=== PATIENT | female | born 2000 | race Caucasian/White ===

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

== ENCOUNTER 2022-01-08 20:31 | Emergency (ER) | payer BC, MEDICAID, SELFPAY ==
[2022-01-08 20:49] VITALS: BP 126/96; PULSE 119; RESP 16; TEMP 37.1; O2SAT 93; BMI 28.9
--- NOTE | 2022-01-08 20:54 | ED_ITS ---
HPI - Asthma General: Chief Complaint: Asthma Stated Complaint: Asthma Attack Time Seen by Provider: 01/08/22 20:49 History of Present Illness: 21-year-old female comes in today with complaints of increased shortness of breath and asthma exacerbation. Patient reports worsening symptoms over the last 2 hours. Patient has used her albuterol inhaler and then has done 1 nebulizer treatment about 30 minutes ago without any relief. Patient has a history of asthma, migraine headaches, anxiety disorder, and seizure disorder. 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 Managed by her neurologist in [place] at [facility], sees q 6 months. On Keppra, Topamax, prn valium. History of anaphylaxis Multiple foods and other exposures. Vp Analytics at [facility] in [place] - Dr Morrison. On Fasenra in addition to other medications. Migraine with vision changes, on rizatriptan and fioricet as needed Moderate persistent asthma Diagnosed at the age of 4. Denies any intubations for asthma. 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 Tourette's on guanfacine Surgical History H/O shoulder surgery (~2017) right torn rotator cuff History of esophagogastroduodenoscopy (EGD) (~04/2020) eosinophilic microabscesses Family History Grandmother Heart disease Maternal great grandmother Diabetes Maternal great grandmother Hyperlipidemia maternal great grandmother Hypertension maternal great grandmother Thyroid condition maternal Endometriosis maternal Family/Other Ovarian cancer great aunt Hypertension maternal great aunt, maternal great uncle Multiple myeloma maternal uncle Mother Thyroid condition Denies family history of Colon cancer DVT (deep venous thrombosis) Breast cancer Pulmonary embolism Uterine cancer Stroke Social History (Reviewed 12/27/21 @ 15:29 by ARNOLD Crawford-BCRobson Smoking and tobacco status: never smoked Education level details: currently in college Female Reproductive History: Spontaneous abortions: No Physical Exam Const: COMMON NORMALS: alert HENMT: COMMON NORMALS: normocephalic HEAD & SCALP: normocephalic Eye: COMMON NORMALS: Equal, round and reactive pupils present and EOMs intact bilaterally PUPIL: Yes Equal, round and reactive pupils present Neck/C-Spine: COMMON NORMALS: full ROM Resp: EFFORT & INSPECTION: Yes symmetric chest movement, Yes pursed lip b reathing and Yes uses accessory muscles AUSCULTATION: wheezes Cardio: COMMON NORMALS: regular rate and regular rhythm RATE: regular rate RHYTHM: regular rhythm GI: COMMON NORMALS: Soft to palpation and non-tender PALPATION: Yes Soft to palpation Extremity: COMMON NORMALS: no pedal edema Neuro: SENSORIUM/ORIENTATION: Yes alert Psych: COMMON NORMALS: cooperative Skin: COMMON NORMALS: no rashes or lesions noted GENERAL SKIN EXAM: no rashes or lesions noted Course ED course: 2129, patient has increased air movement throughout lung franklin. Continues to have wheezing. Patient reports improvement in overall symptoms. Vital Signs: Vital signs: Vital Signs Temperature 98.7 F 01/08/22 20:49 Pulse Rate 95 01/08/22 21:54 Respiratory Rate 16 01/08/22 21:54 Blood Pressure 137/95 01/08/22 21:54 Pulse Oximetry 97 01/08/22 21:54 MDM - Asthma Medical Decision Making 21-year-old female comes in today with exacerbation of asthma. Patient reported about 2 hours prior to coming to the ER she had increased difficulty breathing had used her inhaler and then used a albuterol nebulizer treatment about an hour after that without much relief. On exam patient had wheezing throughout lung franklin with decreased air movement. Skin was warm and dry. Vital signs were no rmal. Differential diagnosis includes exacerbation of asthma. Pneumonia. Pneumothorax. Chest x-ray indicated no pneumonia or pneumothorax. CBC and CMP were unremarkable. Patient was treated with 125 mg of Solu-Medrol, 500 mL of saline, and albuterol with ipratropium. Patient had improvement of symptoms. Patient be continued on a burst of steroid prednisone 60 mg a day for 5 days. Patient was also written for some albuterol with ipratropium to use per nebulizer 4 times a day for the next 5 days. Patient reported understanding of care plan need for follow-up return to ER as needed. Lab Data : 01/08/22 21:00 01/08/22 21:00 Radiology Impressions Chest X-Ray 01/08/22 20:57 IMPRESSION: No acute findings. Laboratory Results WBC 8.8 10^3/uL (4.5-13.0) 01/08/22 21:00 RBC 5.53 10^6/uL (4.1-5.3) H 01/08/22 21:00 Hgb 15.8 g/dL (11.5-15.3) H 01/08/22 21:00 Hct 47.1 % (37.0-47.0) H 01/08/22 21:00 MCV 85.2 fl (81-99) 01/08/22 21:00 MCH 28.6 pg (28.0-34.0) 01/08/22 21:00 MCHC 33.5 g/dL (30.0-36.0) 01/08/22 21:00 RDW 11.7 % (12.1-15.1) L 01/08/22 21:00 Plt Count 352 10^3/cmm (130-400) 01/08/22 21:00 MPV 9.6 fL (7.4-10.4) 01/08/22 21:00 Neut % (Auto) 47.6 % 01/08/22 21:00 Lymph % (Auto) 44.5 % 01/08/22 21:00 Florence % (Auto) 7.4 % 01/08/22 21:00 Eos % (Auto) 0.0 % 01/08/22 21:00 Baso % (Auto) 0.3 % 01/08/22 21:00 Neut # (Auto) 4.21 10^3/uL (1.8-8.0) 01/08/22 21:00 Lymph # (Auto) 3.9 10^3/uL (1.5-6.5) 01/08/22 21:00 Florence # (Auto) 0.7 10^3/uL (0.2-0.9) 01/08/22 21:00 Eos # (Auto) 0.0 10^3/uL (0.0-0.8) 03/01/22 21:00 Baso # (Auto) 0.0 10^3/uL (0.0-0.1) 01/08/22 21:00 Nucleated RBC % (auto) 0 % 01/08/22 21:00 Nucleated RBCs # 0.0 /100WBC 01/08/22 21:00 Sodium 138 mmol/L (136-145) 01/08/22 21:00 Potassium 3.8 mmol/L (3.5-5.1) 01/08/22 21:00 Chloride 103 mmol/L (98-107) 01/08/22 21:00 Carbon Dioxide 23 mmol/L (22-29) 01/08/22 21:00 Anion Gap 15.8 (5-19) 01/08/22 21:00 BUN 13 mg/dL (6-20) 01/08/22 21:00 Creatinine 0.9 mg/dL (0.5-0.9) 01/08/22 21:00 GFR Calculation 80.7 mL/min (90-130) L 01/08/22 21:00 Glucose 98 mg/dL (65-115) 01/08/22 21:00 Calculated Osmolality 286 mOsm/kg (285-295) 01/08/22 21:00 Calcium 9.0 mg/dL (8.5-10.5) 01/08/22 21:00 Total Bilirubin 0.2 mg/dL (0.15-1.2) 01/08/22 21:00 AST 15 U/L (0-32) 01/08/22 21:00 ALT 13 U/L (0-33) 01/08/22 21:00 Alkaline Phosphatase 94 IU/L (35-105) 01/08/22 21:00 Total Protein 7.2 g/dL (6.6-8.7) 01/08/22 21:00 Albumin 4.7 g/dL (3.5-5.2) 01/08/22 21:00 Globulin 2.5 g/dL (1.3-4.6) 01/08/22 21:00 HCG, Qual Negative (Negative) 01/08/22 21:22 Discharge Plan Discharge Patient Disposition: Home Clinical Impression: Asthma with acute exacerbation Condition: Stable Prescriptions: New ipratropium-albuterol 0.5 mg-3 mg(2.5 mg base)/3 mL solution for nebulization 3 ml inhalation Q6H PRN (Reason: shortness of breath or wheezing) Qty: 90 0RF prednisone 20 mg tablet 60 mg PO DAILY 5 Days Qty: 30 0RF No Action rizatriptan 10 mg tablet,disintegrating 10 mg PO Q2H PRN (Reason: Migraine Headache) 0RF Rx Instructions: do not exceed 3 doses per 24 hrs medroxyprogesterone [Depo-Provera] 150 mg/mL suspension 150 mg IM .EVERY 90 DAYS Qty: 1 3RF pantoprazole [Protonix] 40 mg tablet,delayed release (DR/EC) 40 mg PO DAILY 0RF azelastine 137 mcg (0.1 %) aerosol,spray 2 spray intranasal DAILY 0RF Rx Instructions: administer into each nostril can use twice daily prn trazodone 50 mg tablet 50 mg PO BEDTIME PRN (Reason: Sleep) 0RF Rx Instructions: may take 2 tabs prn metoclopramide HCl 10 mg tablet,disintegrating 10 mg PO Q6H Qty: 20 0RF dexamethasone sodium phosphate 4 mg/mL solution 8 mg IM ONCE Qty: 2 0RF methylprednisolone [Medrol (Norbert)] 4 mg tablets,dose pack See Rx Instructions PO PER PKG DIR Qty: 21 0RF Rx Instructions: PO PER PKG DIR amoxicillin-pot clavulanate 875-125 mg tablet 1 tab PO Q12H 10 Days Qty: 20 0RF Trelegy Ellipta 100-62.5-25 mcg blister with device 1 inh inhalation DAILY 0RF ondansetron HCl [Zofran] 4 mg tablet 4 mg PO Q8H PRN (Reason: Nausea) Qty: 20 0RF epinephrine 0.3 mg/0.3 mL auto-injector 0.3 mg IM Q10M PRN (Reason: allergic reaction) Qty: 1 1RF Rx Instructions: Administer into thigh at first sign of anaphylaxis. ibuprofen 600 mg tablet 600 mg PO Q8H PRN (Reason: pain) Qty: 60 0RF Hold Instructions: Doctor's Order albuterol sulfate 90 mcg/actuation HFA aerosol inhaler 2 inh INHALATION Q4H PRN (Reason: shortness of breath or wheezing) Qty: 8.5 3RF Fioricet 50-300-40 mg capsule 1 cap PO Q4H PRN (Reason: headache) Qty: 30 0RF montelukast 10 mg tablet 10 mg PO BEDTIME Qty: 30 2RF Diastat AcuDial 5-7.5-10 mg Kit 10 mg MN .ONE TIME PRN 0RF dihydroxyaluminum sodium carb 334 mg Tablet,Chewable 334 - 668 mg PO PRN 0RF Tylenol Extra Strength 500 mg Tablet 500 - 1,000 mg PO PRN 0RF topiramate 50 mg Tablet 100 mg PO BID 0RF Flonase Allergy Relief 50 mcg/actuation spray,suspension 1 spray INTRANASAL DAILY 0RF Rx Instructions: administer into each nostril multivitamin Tablet 1 tab PO DAILY 0RF cetirizine 10 mg Tablet 20 mg PO QAM 0RF guanfacine 1 mg Tablet 1 mg PO BEDTIME 0RF hydroxyzine HCl 25 mg Tablet 25 mg PO Q6H PRN (Reason: Itching) 0RF levetiracetam [Keppra XR] 500 mg Tablet Extended Release 24 Hr 3,000 mg PO BEDTIME 0RF albuterol sulfate 2.5 mg /3 mL (0.083 %) solution for nebulization 2.5 mg inhalation Q4H PRN (Reason: Shortness Of Breath) 0RF Discharge Orders: Discharge ED (Routine); Ordered 01/08/22 Ordered By: Carlyle Kimball Referrals: Samantha Gurrola MD [Primary Care Provider] - Discharge Diet: Usual diet Discharge Activity: Increase activity as tolerated Patient Instructions: Asthma (ED), Opioid Safety Activity Restrictions/Additional Instructions: Use albuterol with ipratropium, DuoNeb's, per nebulizer 4 times a day for the next 5 days. Then use as needed. Continue with routine medications as directed. Take steroid burst of prednisone 60 mg daily for the next 5 days. Drink plenty of water with medication. Follow-up with primary care or asthma resident care aid for further evaluation and treatment. Return to ER for worsening symptoms or new concerns. Coding Level of Care Code ED Photo Finish Photographer for Konstantin Fwdarius Exam Comprehensive
--- NOTE | 2022-01-08 20:57 | XRR_ITS ---
PROCEDURE INFORMATION: Exam: XR Chest Exam date and time: 01/08/2022 8:57 PM Age: 21 years old Clinical indication: Shortness of breath; Additional info: Dyspnea TECHNIQUE: Imaging protocol: XR of the chest. Views: 1 view. COMPARISON: CR XR chest 2V* [id number] 12/27/2021 5:04 PM FINDINGS: Lungs: Lungs are clear. Pleural spaces: There is no pleural effusion or pneumothorax. Heart/Mediastinum: Cardiomediastinal contours are unremarkable. Bones/joints: Bones are unremarkable. XR/XR chest 1V portable [id number] IMPRESSION: No acute findings.
[2022-01-08 21:09] VITALS: PULSE 103; RESP 20; O2SAT 97
[2022-01-08] MEDS: ipratropium-albuterol 3 mL Neb INHALATION (21:09)
[2022-01-08] MEDS: sodium chloride 0.9% 500 ML 999 ML IV (21:14)
[2022-01-08 21:22] LABS: Basophils % 0.3 %; Hematocrit 47.1 % (37.0-47.0); Hemoglobin 15.8 g/dL (11.5-15.3); Lymphocytes # 3.9 10^3/uL (1.5-6.5); Lymphocytes % 44.5 %; Mean Corpuscular HGB Conc 33.5 g/dL (30.0-36.0); Mean Corpuscular Hemoglobin 28.6 pg (28.0-34.0); Mean Corpuscular Volume 85.2 fl (81-99); Mean Platelet Volume 9.6 fL (7.4-10.4); Monocytes # 0.7 10^3/uL (0.2-0.9); Monocytes % 7.4 %; Neutrophils # 4.21 10^3/uL (1.8-8.0); Neutrophils % 47.6 %; Nucleated Red Blood Cells % 0 %; Platelet Count 352 10^3/cmm (130-400); Red Blood Count 5.53 10^6/uL (4.1-5.3); Red Cell Distribution Width 11.7 % (12.1-15.1); White Blood Count 8.8 10^3/uL (4.5-13.0)
[2022-01-08 21:44] LABS: HCG, Serum Qual Negative (Negative)
[2022-01-08 21:54] VITALS: BP 137/95; PULSE 95; RESP 16; O2SAT 97
[2022-01-08 21:57] LABS: Alanine Aminotransferase 13 U/L (0-33); Albumin Level 4.7 g/dL (3.5-5.2); Alkaline Phosphatase 94 IU/L (35-105); Anion Gap 15.8 (5-19); Aspartate Amino Transferase 15 U/L (0-32); Blood Urea Nitrogen 13 mg/dL (6-20); Carbon Dioxide 23 mmol/L (22-29); Chloride 103 mmol/L (98-107); Creatinine Clr Calc Pharmacy 89.5811; Globulin 2.5 g/dL (1.3-4.6); Glomerular Filtration Rate 80.7 mL/min (90-130); Glucose 98 mg/dL (65-115); Osmolality Calculated 286 mOsm/kg (285-295); Potassium 3.8 mmol/L (3.5-5.1); Sodium 138 mmol/L (136-145); Total Bilirubin 0.2 mg/dL (0.15-1.2); Total Protein 7.2 g/dL (6.6-8.7)
[2022-01-08 22:22] VITALS: BP 123/101; PULSE 101; RESP 16; O2SAT 94
== END 2022-01-08 22:23 | disposition home or self-care (01) ==
PROVIDERS: Emergency Provider Nurse Practitioner Family; PCP Pediatrics Adolescent Medicine
DX: J45.901 Unspecified asthma with (acute) exacerbation (principal)
CPT/HCPCS: 71045; 80053; 84703; 85025; 94640; 96374; 99284; J2930; J7040

== ENCOUNTER 2022-01-29 14:38 | Emergency (ER) | payer BC, MEDICAID, SELFPAY ==
[2022-01-29 14:49] VITALS: BP 153/97; PULSE 84; RESP 18; TEMP 36.9; O2SAT 94; BMI 28.3
[2022-01-29 14:51] VITALS: BP 121/86; PULSE 92; RESP 18; TEMP 37.2; O2SAT 97
--- NOTE | 2022-01-29 15:36 | ED_ITS ---
HPI - Headache General: Chief Complaint: Headache Stated Complaint: Migraine, service dog alerted, Numb hands Time Seen by Provider: 01/29/22 14:52 Source: patient Mode of arrival: ambulatory Limitations: no limitations History of Present Illness: 21-year-old female presents emergency room with bilateral frontal headache. She has photophobia and photophobia. She has not had any vomiting but has had significant nausea. She tried several home medications with no relief. She had similar headaches in the past. No recent trauma. MD elicited complaint: migraine Onset (ago): hour(s) Onset description: suddenly Location: frontal and temporal Severity: moderate Quality & Timing: throbbing Exacerbating factors: none Relieving factors: nothing Associated symptoms: Deny chest pain, confusion, cough, diaphoresis, eye pain, eye redness, fever(s), lightheadedness, loss of vision, malaise, nausea, neck stiffness, numbness, paresthesias, photophobia, pre-syncope, rash, seizures, short of breath, sound sensitivity, syncope, vomiting or weakness Treatments prior to arrival: none Review of Systems Const: Denies: fever(s), malaise or diaphoresis Eyes: Reports: photophobia; Denies: change in vision ENMT: Denies: throat pain Card: Denies: chest pain, lightheadedness, syncope or pre-syncope Resp: Denies: dyspnea, productive cough or wheezing GI: Denies: nausea or vomiting : Denies: flank pain, difficulty voiding, dysuria, urinary frequency or urinary urgency Skin/Breast: Denies: rash Neuro: Denies: headache(s) or confusion PFS ED PFSH: Medical History 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 Managed by her neurologist in [place] at [facility], sees q 6 months. On Keppra, Topamax, prn valium. History of anaphylaxis Multiple foods and other exposures. 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 On Fasenra in addition to other medications. Migraine with vision changes, on rizatriptan and fioricet as needed Moderate persistent asthma Diagnosed at the age of 4. Denies any intubations for asthma. 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 Yari's on guanfacine Surgical History H/O shoulder surgery (~2017) right torn rotator cuff History of esophagogastroduodenoscopy (EGD) (~04/2020) eosinophilic microabscesses Family History Grandmother Heart disease Maternal great grandmother Diabetes Maternal great grandmother Hyperlipidemia maternal great grandmother Hypertension maternal great grandmother Thyroid condition maternal Endometriosis maternal Family/Other Ovarian cancer great aunt Hypertension maternal great aunt, maternal great uncle Multiple myeloma maternal uncle Mother Thyroid condition Denies family history of Colon cancer DVT (deep venous thrombosis) Breast cancer Pulmonary embolism Uterine cancer Stroke Social History Smoking and tobacco status: never smoked Education level details: currently in college Female Reproductive History: Spontaneous abortions: No Physical Exam Const: COMMON NORMALS: no acute distress GENERAL APPEARANCE: cooperative and comfortable ORIENTATION/CONSCIOUSNESS: Yes awake, Yes oriented to person, Yes oriented to place and Yes oriented to time HENMT: COMMON NORMALS: normocephalic, atraumatic and hearing grossly normal bilaterally HEAD & SCALP: normocephalic and atraumatic Eye: DIRECT OPHTHALMOSCOPY: No photophobia Neck/C-Spine: COMMON NORMALS: no JVD Resp: COMMON NORMALS: normal respiratory effort, No retractions, No use of accessory muscles and clear to auscultation bilaterally AUSCULTATION: clear to auscultation bilaterally Cardio: COMMON NORMALS: no JVD, regular rate, regular rhythm and No murmurs present (Cardio) RATE: regular rate RHYTHM: regular rhythm GI: COMMON NORMALS: Soft to palpation and No hepatosplenomegaly present AUSCULTATION: Yes normoactive bowel sounds PALPATION: Yes Soft to palpation, No Tenderness to palpation present (GI), No Guarding due to palpation present (GI) and Yes No hepatosplenomegaly present Extremity: COMMON NORMALS: normal to inspection, capillary refill normal, no clubbing, cyanosis or edema, no calf tenderness and no pedal edema Neuro: SENSORIUM/ORIENTATION: Yes oriented to person, Yes oriented to place and Yes oriented to time Skin: COMMON NORMALS: no rashes or lesions noted GENERAL SKIN EXAM: no rashes or lesions noted Course Vital Signs: Vital signs: Vital Signs Temperature 98.9 F 01/29/22 14:51 Pulse Rate 86 01/29/22 17:14 Respiratory Rate 18 01/29/22 17:14 Blood Pressure 123/88 01/29/22 17:14 Pulse Oximetry 99 01/29/22 17:14 MDM - Headache Medical Decision Making Migraines are a chronic recurring issue for this patient. Partially improved after treatment patient wishes to go home we will discharge home. Continue current medications follow-up with neurology or primary care for further headache management. Medical Records I reviewed the patient's medical records. Lab Data I reviewed the patient's lab results. Discharge Plan Discharge Patient Disposition: Home Clinical Impression: Migraine variant Condition: Stable Prescriptions: No Action rizatriptan 10 mg tablet,disintegrating 10 mg PO Q2H PRN (Reason: Migraine Headache) 0RF Rx Instructions: do not exceed 3 doses per 24 hrs medroxyprogesterone [Depo-Provera] 150 mg/mL suspension 150 mg IM .EVERY 90 DAYS Qty: 1 3RF pantoprazole [Protonix] 40 mg tablet,delayed release (DR/EC) 40 mg PO DAILY 0RF azelastine 137 mcg (0.1 %) aerosol,spray 2 spray intranasal DAILY 0RF Rx Instructions: administer into each nostril can use twice daily prn trazodone 50 mg tablet 50 mg PO BEDTIME PRN (Reason: Sleep) 0RF Rx Instructions: may take 2 tabs prn metoclopramide HCl 10 mg tablet,disintegrating 10 mg PO Q6H Qty: 20 0RF dexamethasone sodium phosphate 4 mg/mL solution 8 mg IM ONCE Qty: 2 0RF methylprednisolone [Medrol (Norbert)] 4 mg tablets,dose pack See Rx Instructions PO PER PKG DIR Qty: 21 0RF Rx Instructions: PO PER PKG DIR amoxicillin-pot clavulanate 875-125 mg tablet 1 tab PO Q12H 10 Days Qty: 20 0RF Trelegy Ellipta 100-62.5-25 mcg blister with device 1 inh inhalation DAILY 0RF ondansetron HCl [Zofran] 4 mg tablet 4 mg PO Q8H PRN (Reason: Nausea) Qty: 20 0RF epinephrine 0.3 mg/0.3 mL auto-injector 0.3 mg IM Q10M PRN (Reason: allergic reaction) Qty: 1 1RF Rx Instructions: Administer into thigh at first sign of anaphylaxis. ibuprofen 600 mg tablet 600 mg PO Q8H PRN (Reason: pain) Qty: 60 0RF Hold Instructions: Doctor's Order montelukast 10 mg tablet 10 mg PO BEDTIME Qty: 30 2RF sbamuvaser-ldsqsqhbugeaa-hizi [Fioricet] 50-300-40 mg capsule 1 cap PO Q4H PRN (Reason: headache) Qty: 30 0RF albuterol sulfate [ProAir HFA] 90 mcg/actuation HFA aerosol inhaler See Rx Instructions .ROUTE .COMPLEX Qty: 8.5 1RF Dose Instruction: INHALE 2 PUFFS BY MOUTH EVERY 4 HOURS NEEDED FOR SHORTNESS OF BREATH OR WHEEZING Rx Instructions: INHALE 2 PUFFS BY MOUTH EVERY 4 HOURS NEEDED FOR SHORTNESS OF BREATH OR WHEEZING Diastat AcuDial 5-7.5-10 mg Kit 10 mg MT .ONE TIME PRN 0RF dihydroxyaluminum sodium carb 334 mg Tablet,Chewable 334 - 668 mg PO PRN 0RF Tylenol Extra Strength 500 mg Tablet 500 - 1,000 mg PO PRN 0RF topiramate 50 mg Tablet 100 mg PO BID 0RF Flonase Allergy Relief 50 mcg/actuation spray,suspension 1 spray INTRANASAL DAILY 0RF Rx Instructions: administer into each nostril ipratropium-albuterol 0.5 mg-3 mg(2.5 mg base)/3 mL solution for nebulization 3 ml inhalation Q6H PRN (Reason: shortness of breath or wheezing) Qty: 90 0RF multivitamin Tablet 1 tab PO DAILY 0RF cetirizine 10 mg Tablet 20 mg PO QAM 0RF guanfacine 1 mg Tablet 1 mg PO BEDTIME 0RF hydroxyzine HCl 25 mg Tablet 25 mg PO Q6H PRN (Reason: Itching) 0RF levetiracetam [Keppra XR] 500 mg Tablet Extended Release 24 Hr 3,000 mg PO BEDTIME 0RF albuterol sulfate 2.5 mg /3 mL (0.083 %) solution for nebulization 2.5 mg inhalation Q4H PRN (Reason: Shortness Of Breath) 0RF Reglan 5 mg tablet 5 mg PO DAILY PRN (Reason: nausea and vomiting) 10 Days Qty: 10 0RF magnesium oxide 400 mg magnesium capsule 400 mg PO DAILY PRN (Reason: headache) 10 Days Qty: 10 0RF prednisone 50 mg tablet 50 mg PO DAILY Qty: 5 0RF Discharge Orders: Discharge ED (Routine); Ordered 01/29/22 Ordered By: Henry Ritchie Referrals: Samantha Gurrola MD [Primary Care Provider] - Discharge Diet: Usual diet Discharge Activity: Limit activity as instructed Activity Restrictions/Additional Instructions: Follow-up with neurologist as soon as you are able. Avoid strenuous activity. Avoid bright lights loud sounds. Coding Level of Care Code ED Web Design Specialist for Konstantin Pedersen
[2022-01-29] MEDS: promethazine 25 mg/mL SDV 1 mL IM (15:51)
[2022-01-29] MEDS: sodium chloride 0.9% 1,000 ML 999 ML IV (15:51)
[2022-01-29] MEDS: ketorolac 30 mg/mL INJ IVP (15:52)
[2022-01-29] MEDS: valproic acid inj 500 MG in sodium chloride 0.9% 50 ML 55 MG IV (16:03)
[2022-01-29 16:18] VITALS: BP 113/76; PULSE 92; RESP 18; O2SAT 97
[2022-01-29 16:30] VITALS: BP 105/82; O2SAT 97
[2022-01-29 17:11] VITALS: BP 123/88; PULSE 86; RESP 18; O2SAT 99
[2022-01-29 17:14] VITALS: BP 123/88; PULSE 86; RESP 18; O2SAT 99
== END 2022-01-29 17:15 | disposition home or self-care (01) ==
PROVIDERS: Emergency Provider Family Medicine; PCP Pediatrics Adolescent Medicine
DX: G43.909 Migraine, unspecified, not intractable, without status migrainosus (principal)
CPT/HCPCS: 96365; 96372; 96375; 99284; J1885; J2550; J7030

== ENCOUNTER 2022-02-02 08:49 | Emergency (ER) | payer BC, MEDICAID, SELFPAY ==
[2022-02-02 09:23] VITALS: PULSE 97; RESP 16; TEMP 36.9; O2SAT 94; BMI 29.2
--- NOTE | 2022-02-02 12:06 | W.ED.GENADLT ---
HPI - General Adult General: Chief complaint: Headache Stated complaint: migraine Time Seen by Provider: 02/02/22 09:30 History of Present Illness: Patient is a 21-year-old female with a history of migraines and seizures who was initially evaluated on 01/29/2022 for complaints of migraine headache. Since then, patient tells me that her headache improved after the ED visit but however her symptoms has relapsed in the last day. Patient has had significant nausea without vomiting. Patient denies any focal neurological weakness with a headache today. Patient reports photophobia insomnia, difficulty sleeping, and difficulty concentrating due to the headache. Patient reports a constant throbbing left frontal headache and neck pain. Patient denies that the headache is sudden onset or intense at the beginning. Patient denies any trauma, no family history of aneurysm. Patient has no other focal complaints including focal weakness, slurring of speech, facial droop, chest pain, shortness breath, palpitation, abdominal complaints, nausea/vomiting, or other issues at this time. Onset: 01/29/2022 Duration:ongoing Location:home Severity:moderate Associated symptoms: Reports nausea; Deny chest pain, dyspnea, rash, palpitations or vomiting Review of Systems Const: Denies: fever(s) or chills Eyes: Denies: change in vision ENMT: Denies: mouth pain Card: Denies: chest pain or palpitations Resp: Denies: dyspnea or non-productive cough GI: Reports: nausea; Denies: abdominal pain, vomiting or diarrhea : Denies: dysuria Musc: Denies: extremity pain Skin/Breast: Denies: rash or new lesions Neuro: Reports: other (+headache); Denies: weakness in extremities Psych: Reports: other (Normal mood) Issac/Lymph: Denies: easy bruising PFS ED PFSH: Medical History Allergy to alpha-gal Eosinophilic gastroenteropathy Gastroenterology in [facility] -Dr. 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 Managed by her neurologist in [facility], sees q 6 months. On Keppra, Topamax, prn valium. History of anaphylaxis Multiple foods and other exposures. 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 On Fasenra in addition to other medications. Migraine with vision changes, on rizatriptan and fioricet as needed Moderate persistent asthma Diagnosed at the age of 4. Denies any intubations for asthma. 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 Tourette's on guanfacine Surgical History H/O shoulder surgery (~2017) right torn rotator cuff History of esophagogastroduodenoscopy (EGD) (~04/2020) eosinophilic microabscesses Family History Grandmother Heart disease Maternal great grandmother Diabetes Maternal great grandmother Hyperlipidemia maternal great grandmother Hypertension maternal great grandmother Thyroid condition maternal Endometriosis maternal Family/Other Ovarian cancer great aunt Hypertension maternal great aunt, maternal great uncle Multiple myeloma maternal uncle Mother Thyroid condition Denies family history of Colon cancer DVT (deep venous thrombosis) Breast cancer Pulmonary embolism Uterine cancer Stroke Social History Smoking and tobacco status: never smoked Education level details: currently in college Physical Exam Const: COMMON NORMALS: alert HENMT: COMMON NORMALS: atraumatic HEAD & SCALP: atraumatic MOUTH: moist mucous membranes not abnormal Eye: COMMON NORMALS: EOMs intact bilaterally and conjunctivae normal CONJUNCTIVA: Yes conjunctivae normal Neck/C-Spine: COMMON NORMALS: full ROM and supple Resp: COMMON NORMALS: normal respiratory effort and clear to auscultation bilaterally AUSCULTATION: clear to auscultation bilaterally Cardio: COMMON NORMALS: regular rate RATE: regular rate GI: COMMON NORMALS: Soft to palpation and non-tender PALPATION: Yes Soft to palpation Extremity: COMMON NORMALS: full ROM Neuro: SENSORIUM/ORIENTATION: Yes alert MOTOR EXAM: No Abnormal motor strength present and Other motor observations present (no focal motor deficits) OTHER: Neuro exam grossly intact, cranial nerves II through grossly intact. Patient is able to ambulate without any difficulty., Patient is moving all extremities. Psych: COMMON NORMALS: speech normal SPEECH: Yes normal speech MOOD & AFFECT: Yes euthymic mood Course Vital Signs: Vital signs: Vital Signs Temperature 98.4 F 02/02/22 09:23 Pulse Rate 97 02/02/22 09:23 Respiratory Rate 16 02/02/22 09:23 Pulse Oximetry 94 02/02/22 09:23 MDM - General Adult Medical Decision Making 21-year-old female with history of migraine seizure presenting to the emergency room with breakthrough migraine despite treatment in the emergency room on 01/29/2022. At the present time, given gradual onset, similar headache to prior, no fever, I do not suspect that this is subarachnoid hemorrhage, meningitis, or other acute intracranial processes. Patient received Reglan, IVF, Benadryl, Toradol, and magnesium with significant improvement in headache. Rx: Magnesium oxide, Tylenol, Reglan as needed for headache Disposition: Discharge. Patient counseled regarding diagnostic impression, treatment plan. Patient given ED strict return precautions to return for continuation, worsening, or development of new symptoms. Instructed to f/u w/ PCP regarding symptoms today. Patient verbalized understanding. Discharge Plan Discharge Patient Disposition: Home Clinical Impression: Migraine Condition: Stable Prescriptions: New acetaminophen 500 mg tablet 500 mg PO Q6H PRN (Reason: pain) 5 Days Qty: 20 0RF Reglan 5 mg tablet 5 mg PO DAILY PRN (Reason: nausea and vomiting) 10 Days Qty: 10 0RF magnesium oxide 400 mg magnesium capsule 400 mg PO DAILY PRN (Reason: headache) 10 Days Qty: 10 0RF No Action rizatriptan 10 mg tablet,disintegrating 10 mg PO Q2H PRN (Reason: Migraine Headache) 0RF Rx Instructions: do not exceed 3 doses per 24 hrs medroxyprogesterone [Depo-Provera] 150 mg/mL suspension 150 mg IM .EVERY 90 DAYS Qty: 1 3RF pantoprazole [Protonix] 40 mg tablet,delayed release (DR/EC) 40 mg PO DAILY 0RF azelastine 137 mcg (0.1 %) aerosol,spray 2 spray intranasal DAILY 0RF Rx Instructions: administer into each nostril can use twice daily prn trazodone 50 mg tablet 50 mg PO BEDTIME PRN (Reason: Sleep) 0RF Rx Instructions: may take 2 tabs prn metoclopramide HCl 10 mg tablet,disintegrating 10 mg PO Q6H Qty: 20 0RF dexamethasone sodium phosphate 4 mg/mL solution 8 mg IM ONCE Qty: 2 0RF methylprednisolone [Medrol (Norbert)] 4 mg tablets,dose pack See Rx Instructions PO PER PKG DIR Qty: 21 0RF Rx Instructions: PO PER PKG DIR amoxicillin-pot clavulanate 875-125 mg tablet 1 tab PO Q12H 10 Days Qty: 20 0RF Trelegy Ellipta 100-62.5-25 mcg blister with device 1 inh inhalation DAILY 0RF ondansetron HCl [Zofran] 4 mg tablet 4 mg PO Q8H PRN (Reason: Nausea) Qty: 20 0RF epinephrine 0.3 mg/0.3 mL auto-injector 0.3 mg IM Q10M PRN (Reason: allergic reaction) Qty: 1 1RF Rx Instructions: Administer into thigh at first sign of anaphylaxis. ibuprofen 600 mg tablet 600 mg PO Q8H PRN (Reason: pain) Qty: 60 0RF Hold Instructions: Doctor's Order Fioricet 50-300-40 mg capsule 1 cap PO Q4H PRN (Reason: headache) Qty: 30 0RF montelukast 10 mg tablet 10 mg PO BEDTIME Qty: 30 2RF albuterol sulfate [ProAir HFA] 90 mcg/actuation HFA aerosol inhaler See Rx Instructions .ROUTE .COMPLEX Qty: 8.5 0RF Dose Instruction: INHALE 2 PUFFS BY MOUTH EVERY 4 HOURS NEEDED FOR SHORTNESS OF BREATH OR WHEEZING Rx Instructions: INHALE 2 PUFFS BY MOUTH EVERY 4 HOURS NEEDED FOR SHORTNESS OF BREATH OR WHEEZING Diastat AcuDial 5-7.5-10 mg Kit 10 mg DE .ONE TIME PRN 0RF dihydroxyaluminum sodium carb 334 mg Tablet,Chewable 334 - 668 mg PO PRN 0RF Tylenol Extra Strength 500 mg Tablet 500 - 1,000 mg PO PRN 0RF topiramate 50 mg Tablet 100 mg PO BID 0RF Flonase Allergy Relief 50 mcg/actuation spray,suspension 1 spray INTRANASAL DAILY 0RF Rx Instructions: administer into each nostril ipratropium-albuterol 0.5 mg-3 mg(2.5 mg base)/3 mL solution for nebulization 3 ml inhalation Q6H PRN (Reason: shortness of breath or wheezing) Qty: 90 0RF multivitamin Tablet 1 tab PO DAILY 0RF cetirizine 10 mg Tablet 20 mg PO QAM 0RF guanfacine 1 mg Tablet 1 mg PO BEDTIME 0RF hydroxyzine HCl 25 mg Tablet 25 mg PO Q6H PRN (Reason: Itching) 0RF levetiracetam [Keppra XR] 500 mg Tablet Extended Release 24 Hr 3,000 mg PO BEDTIME 0RF albuterol sulfate 2.5 mg /3 mL (0.083 %) solution for nebulization 2.5 mg inhalation Q4H PRN (Reason: Shortness Of Breath) 0RF Discharge Orders: Discharge ED (Routine); Ordered 02/02/22 Ordered By: Vasyl Onofre Referrals: Samantha Gurrola MD [Primary Care Provider] - Discharge Diet: Advance as tolerated Discharge Activity: Increase activity as tolerated Patient Instructions: Acute Headache (ED) Activity Restrictions/Additional Instructions: Please come back to the emergency room you have any fever chills, worsening headache, focal weakness, nausea/vomiting, inability to perform daily activity, or any new concerning complaints. Coding Level of Care Code ED Auto Radio Mechanic for Konstantin Fwd Exam Comprehensive
[2022-02-02] MEDS: sodium chloride 0.9% 1,000 ML 999 ML IV (13:11)
[2022-02-02] MEDS: acetaminophen 500 mg Tablet 1000 MG PO (13:13)
[2022-02-02] MEDS: ketorolac 30 mg/mL INJ IVP (13:14)
[2022-02-02] MEDS: diphenhydrAMINE 50 mg/mL SDV 1mL IVP (13:16)
[2022-02-02] MEDS: metoclopramide 5 mg/mL SDV 2 mL IVP (13:18)
[2022-02-02] MEDS: magnesium sulfate premix 2 GM/50 ML PIGGYBACK IV (13:22)
== END 2022-02-02 14:08 | disposition home or self-care (01) ==
PROVIDERS: Emergency Provider Emergency Medicine; PCP Pediatrics Adolescent Medicine
DX: G43.909 Migraine, unspecified, not intractable, without status migrainosus (principal)
CPT/HCPCS: 96365; 96375; 99283; J1200; J1885; J2765; J3475; J7030

== ENCOUNTER 2022-02-05 01:27 | Emergency (ER) | payer BC, MEDICAID, SELFPAY ==
[2022-02-05 01:31] VITALS: BP 134/98; PULSE 139; RESP 24; TEMP 36.8; O2SAT 95; BMI 29.2
--- NOTE | 2022-02-05 01:39 | XRR_ITS ---
PROCEDURE INFORMATION: Exam: XR Chest Exam date and time: 02/05/2022 2:01 AM Age: 21 years old Clinical indication: Dyspnea; Additional info: Asthma TECHNIQUE: Imaging protocol: XR of the chest. Views: 1 view. COMPARISON: CR (CHEST, ) 01/08/2022 9:13 PM FINDINGS: Lungs: Stable hyperaerated lungs consistent with deep inspiratory effort vs reactive airway disease. Pleural spaces: Unremarkable. No pleural effusion. No pneumothorax. Heart/Mediastinum: Unremarkable. No cardiomegaly. Bones/joints: Unremarkable. XR/XR chest 1V portable [id number] IMPRESSION: Stable hyperaerated lungs consistent with deep inspiratory effort vs reactive airway disease.
--- NOTE | 2022-02-05 01:41 | W.ED.ASTHMA ---
HPI - Asthma General: Chief Complaint: Asthma Stated Complaint: Asthma Attack Time Seen by Provider: 02/05/22 01:36 Source: patient Mode of arrival: ambulatory Limitations: no limitations History of Present Illness: 21-year-old female who has a long history of asthma states she has been having shortness of breath along with wheezing and cough throughout the day. States is like her previous asthma attacks. She denies any fever she does have some improvement with albuterol. Denies any vomiting. Denies any chest pain. Associated symptoms: Reports non-productive cough; Deny chest pain or fever(s) Review of Systems Const: Denies: fever(s), chills, body aches or change in appetite Eyes: Denies: blurry vision or eye discomfort ENMT: Denies: throat pain or dental pain Card: Denies: chest pain Resp: Reports: non-productive cough and wheezing GI: Denies: abdominal pain, nausea, vomiting or diarrhea : Denies: dysuria Musc: Denies: neck pain or back pain Skin/Breast: Denies: rash Neuro: Denies: headache(s) Psych: Denies: depression Issac/Lymph: Denies: easy bruising All/Imm: Denies: urticaria PFSH ED PFSH: Medical History 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 Managed by her neurologist in [facility], sees q 6 months. On Keppra, Topamax, prn valium. History of anaphylaxis Multiple foods and other exposures. 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 On Fasenra in addition to other medications. Migraine with vision changes, on rizatriptan and fioricet as needed Moderate persistent asthma Diagnosed at the age of 4. Denies any intubations for asthma. 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 Yari's on guanfacine Surgical History H/O shoulder surgery (~2017) right torn rotator cuff History of esophagogastroduodenoscopy (EGD) (~04/2020) eosinophilic microabscesses Family History Grandmother Heart disease Maternal great grandmother Diabetes Maternal great grandmother Hyperlipidemia maternal great grandmother Hypertension maternal great grandmother Thyroid condition maternal Endometriosis maternal Family/Other Ovarian cancer great aunt Hypertension maternal great aunt, maternal great uncle Multiple myeloma maternal uncle Mother Thyroid condition Denies family history of Colon cancer DVT (deep venous thrombosis) Breast cancer Pulmonary embolism Uterine cancer Stroke Social History Smoking and tobacco status: never smoked Education level details: currently in college Physical Exam Const: COMMON NORMALS: no acute distress, patient oriented x3 and healthy appearing HENMT: COMMON NORMALS: normocephalic and atraumatic HEAD & SCALP: normocephalic and atraumatic Eye: COMMON NORMALS: Equal, round and reactive pupils present and EOMs intact bilaterally PUPIL: Yes Equal, round and reactive pupils present Neck/C-Spine: COMMON NORMALS: full ROM and supple Chest: COMMONS NORMALS: normal inspection of the chest and normal palpation of entire chest wall Resp: COMMON NORMALS: normal respiratory effort, No retractions, No use of accessory muscles and clear to auscultation bilaterally EFFORT & INSPECTION: Yes tachypneic AUSCULTATION: clear to auscultation bilaterally and wheezes Cardio: COMMON NORMALS: regular rate, regular rhythm and No murmurs present (Cardio) RATE: regular rate and tachycardic RHYTHM: regular rhythm GI: COMMON NORMALS: Normal to inspection, nondistended, normoactive bowel sounds present, Soft to palpation, non-tender and no masses PALPATION: Yes Soft to palpation Extremity: COMMON NORMALS: normal to inspection and full ROM Neuro: COMMON NORMALS: patient oriented x3, moves all extremities and no focal motor deficits Psych: COMMON NORMALS: mental status grossly normal, Normal thought process present and cooperative THOUGHT PROCESS: Normal thought process present Skin: COMMON NORMALS: no rashes or lesions noted and no wounds GENERAL SKIN EXAM: no rashes or lesions noted Course Vital Signs: Vital signs: Vital Signs Temperature 98.2 F 02/05/22 01:31 Pulse Rate 122 H 02/05/22 01:58 Respiratory Rate 16 02/05/22 01:58 Blood Pressure 135/81 02/05/22 01:58 Pulse Oximetry 93 02/05/22 01:58 MDM - Asthma Medical Decision Making Patient presents here with an asthma exacerbation she feels much improved here after IV steroids and breathing treatments her heart rates improved to and is currently 105. She has no signs of pneumonia or pulmonary embolism we will place her on prednisone 5 days she is to follow-up with PCP and return if worsening. EKG Data EKG 1: I personally reviewed and interpreted this EKG as follows: EKG interpretation date: 02/05/22 EKG interpretation time: 02:20 Interpretation: sinus tach hr [address] or t wave abnormalities qrs 85 qtc 391 Discharge Plan Discharge Patient Disposition: Home Clinical Impression: Asthma with acute exacerbation Condition: Stable Prescriptions: New prednisone 50 mg tablet 50 mg PO DAILY Qty: 5 0RF No Action rizatriptan 10 mg tablet,disintegrating 10 mg PO Q2H PRN (Reason: Migraine Headache) 0RF Rx Instructions: do not exceed 3 doses per 24 hrs medroxyprogesterone [Depo-Provera] 150 mg/mL suspension 150 mg IM .EVERY 90 DAYS Qty: 1 3RF pantoprazole [Protonix] 40 mg tablet,delayed release (DR/EC) 40 mg PO DAILY 0RF azelastine 137 mcg (0.1 %) aerosol,spray 2 spray intranasal DAILY 0RF Rx Instructions: administer into each nostril can use twice daily prn trazodone 50 mg tablet 50 mg PO BEDTIME PRN (Reason: Sleep) 0RF Rx Instructions: may take 2 tabs prn metoclopramide HCl 10 mg tablet,disintegrating 10 mg PO Q6H Qty: 20 0RF dexamethasone sodium phosphate 4 mg/mL solution 8 mg IM ONCE Qty: 2 0RF methylprednisolone [Medrol (Norbert)] 4 mg tablets,dose pack See Rx Instructions PO PER PKG DIR Qty: 21 0RF Rx Instructions: PO PER PKG DIR amoxicillin-pot clavulanate 875-125 mg tablet 1 tab PO Q12H 10 Days Qty: 20 0RF Trelegy Ellipta 100-62.5-25 mcg blister with device 1 inh inhalation DAILY 0RF ondansetron HCl [Zofran] 4 mg tablet 4 mg PO Q8H PRN (Reason: Nausea) Qty: 20 0RF epinephrine 0.3 mg/0.3 mL auto-injector 0.3 mg IM Q10M PRN (Reason: allergic reaction) Qty: 1 1RF Rx Instructions: Administer into thigh at first sign of anaphylaxis. ibuprofen 600 mg tablet 600 mg PO Q8H PRN (Reason: pain) Qty: 60 0RF Hold Instructions: Doctor's Order montelukast 10 mg tablet 10 mg PO BEDTIME Qty: 30 2RF [id number] [Fioricet] 50-300-40 mg capsule 1 cap PO Q4H PRN (Reason: headache) Qty: 30 0RF albuterol sulfate [ProAir HFA] 90 mcg/actuation HFA aerosol inhaler See Rx Instructions .ROUTE .COMPLEX Qty: 8.5 1RF Dose Instruction: INHALE 2 PUFFS BY MOUTH EVERY 4 HOURS NEEDED FOR SHORTNESS OF BREATH OR WHEEZING Rx Instructions: INHALE 2 PUFFS BY MOUTH EVERY 4 HOURS NEEDED FOR SHORTNESS OF BREATH OR WHEEZING Diastat AcuDial 5-7.5-10 mg Kit 10 mg NE .ONE TIME PRN 0RF dihydroxyaluminum sodium carb 334 mg Tablet,Chewable 334 - 668 mg PO PRN 0RF Tylenol Extra Strength 500 mg Tablet 500 - 1,000 mg PO PRN 0RF topiramate 50 mg Tablet 100 mg PO BID 0RF Flonase Allergy Relief 50 mcg/actuation spray,suspension 1 spray INTRANASAL DAILY 0RF Rx Instructions: administer into each nostril ipratropium-albuterol 0.5 mg-3 mg(2.5 mg base)/3 mL solution for nebulization 3 ml inhalation Q6H PRN (Reason: shortness of breath or wheezing) Qty: 90 0RF multivitamin Tablet 1 tab PO DAILY 0RF cetirizine 10 mg Tablet 20 mg PO QAM 0RF guanfacine 1 mg Tablet 1 mg PO BEDTIME 0RF hydroxyzine HCl 25 mg Tablet 25 mg PO Q6H PRN (Reason: Itching) 0RF levetiracetam [Keppra XR] 500 mg Tablet Extended Release 24 Hr 3,000 mg PO BEDTIME 0RF albuterol sulfate 2.5 mg /3 mL (0.083 %) solution for nebulization 2.5 mg inhalation Q4H PRN (Reason: Shortness Of Breath) 0RF acetaminophen 500 mg tablet 500 mg PO Q6H PRN (Reason: pain) 5 Days Qty: 20 0RF Reglan 5 mg tablet 5 mg PO DAILY PRN (Reason: nausea and vomiting) 10 Days Qty: 10 0RF magnesium oxide 400 mg magnesium capsule 400 mg PO DAILY PRN (Reason: headache) 10 Days Qty: 10 0RF Discharge Orders: Discharge ED (Routine); Ordered 02/05/22 Ordered By: Efraín Horner Referrals: Samantha Gurrola MD [Primary Care Provider] - 1-3 days Discharge Diet: Advance as tolerated Discharge Activity: Resume usual activity Patient Instructions: Asthma (ED) Coding Level of Care Code ED Supervisor Mapping for Chg Fwd Exam Comprehensive
[2022-02-05] MEDS: ipratropium-albuterol 3 mL Neb INHALATION (01:47)
[2022-02-05 01:49] VITALS: PULSE 126; RESP 16; O2SAT 93
[2022-02-05 01:54] VITALS: PULSE 134
[2022-02-05 01:58] VITALS: BP 135/81; PULSE 122; RESP 16; O2SAT 93
--- NOTE | 2022-02-05 01:58 | ECG_ITS ---
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 Measurements Intervals [place] Rate: 117 P: 64 MN: 144 QRS: 92 QRSD: 85 T: 44 QT: 321 QTc: 449 Interpretive Statements SINUS TACHYCARDIA BORDERLINE RIGHT AXIS DEVIATION [QRS AXIS > 90] ABNORMAL RHYTHM ECG Compared to ECG 04/20/2021 09:24:47 No significant changes Electronically Signed On 02-06-2022 16:56:54 CDT by Demetrio Moses M.D. [id number]
[2022-02-05] MEDS: sodium chloride 0.9% 1,000 ML 999 ML IV (02:17)
[2022-02-05 03:31] VITALS: BP 131/78; PULSE 112; RESP 16; O2SAT 96
== END 2022-02-05 03:33 | disposition home or self-care (01) ==
PROVIDERS: Emergency Provider Emergency Medicine; PCP Pediatrics Adolescent Medicine
DX: J45.901 Unspecified asthma with (acute) exacerbation (principal)
CPT/HCPCS: 71045; 93005; 94640; 96361; 96374; 99284; J2930; J7030; J7611

== ENCOUNTER 2022-02-07 03:31 | Emergency (ER) | payer BC, MEDICAID, SELFPAY ==
--- NOTE | 2022-02-07 03:33 | XRR_ITS ---
PROCEDURE INFORMATION: Exam: XR Chest Exam date and time: 02/07/2022 3:39 AM Age: 21 years old Clinical indication: Dyspnea and shortness of breath; Patient HX: C/O SOB with dyspnea. History of asthma. TECHNIQUE: Imaging protocol: XR of the chest. Views: 1 view. COMPARISON: CR (CHEST, ) 02/05/2022 2:01 AM FINDINGS: Lungs: No CHF/pulmonary edema. The lungs appear mildly hyperinflated. Visible lungs appear essentially clear. Pleural spaces: No visible pneumothorax. No definite pleural fluid. Heart/Mediastinum: Heart size is within normal limits. Bones/joints: No significant acute finding. XR/XR chest 1V portable [id number] IMPRESSION: 1. No definite pneumonia or CHF. 2. Suspect mild hyperinflation of the lungs. 3. Other findings discussed above.
[2022-02-07 03:34] VITALS: PULSE 128; RESP 28; TEMP 36.6; O2SAT 92; BMI 29.2
[2022-02-07 03:36] VITALS: BP 150/96; PULSE 117; RESP 20; O2SAT 92
--- NOTE | 2022-02-07 03:40 | W.ED.ASTHMA ---
HPI - Asthma General: Chief Complaint: Asthma Stated Complaint: Asthma Attack Time Seen by Provider: 02/07/22 03:33 Source: patient Mode of arrival: ambulatory Limitations: no limitations History of Present Illness: 21-year-old female who has a history of asthma was seen here 2 days ago for an asthma exacerbation patient was prescribed steroids which she just picked up and started today. States that tonight started having increased breathing wheezing and dyspnea. She is tachypneic here with audible wheezing slight hypoxia she denies any cough denies any fever she has been doing breathing treatments at home with minimal improvement. Denies any recent illness denies any chest pain. Associated symptoms: Deny chest pain or fever(s) Review of Systems Const: Denies: fever(s), chills, body aches or change in appetite Eyes: Denies: blurry vision or eye discomfort ENMT: Denies: throat pain or dental pain Card: Denies: chest pain Resp: Reports: dyspnea and wheezing GI: Denies: abdominal pain, nausea, vomiting or diarrhea : Denies: dysuria Musc: Denies: neck pain or back pain Skin/Breast: Denies: rash Neuro: Denies: headache(s) Psych: Denies: depression Issac/Lymph: Denies: easy bruising All/Imm: Denies: urticaria PFSH ED PFSH: Medical History Allergy to alpha-gal Eosinophilic gastroenteropathy Gastroenterology in [facility] -Dr. 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 Managed by her neurologist in [facility], sees q 6 months. On Keppra, Topamax, prn valium. History of anaphylaxis Multiple foods and other exposures. 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 On Fasenra in addition to other medications. Migraine with vision changes, on rizatriptan and fioricet as needed Moderate persistent asthma Diagnosed at the age of 4. Denies any intubations for asthma. 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 Tourette's on guanfacine Surgical History H/O shoulder surgery (~2018) right torn rotator cuff History of esophagogastroduodenoscopy (EGD) (~04/2020) eosinophilic microabscesses Family History Grandmother Heart disease Maternal great grandmother Diabetes Maternal great grandmother Hyperlipidemia maternal great grandmother Hypertension maternal great grandmother Thyroid condition maternal Endometriosis maternal Family/Other Ovarian cancer great aunt Hypertension maternal great aunt, maternal great uncle Multiple myeloma maternal uncle Mother Thyroid condition Denies family history of Colon cancer DVT (deep venous thrombosis) Breast cancer Pulmonary embolism Uterine cancer Stroke Social History Smoking and tobacco status: never smoked Education level details: currently in college Physical Exam Const: COMMON NORMALS: patient oriented x3 and healthy appearing GENERAL APPEARANCE: in distress HENMT: COMMON NORMALS: normocephalic and atraumatic HEAD & SCALP: normocephalic and atraumatic Eye: COMMON NORMALS: Equal, round and reactive pupils present and EOMs intact bilaterally PUPIL: Yes Equal, round and reactive pupils present Neck/C-Spine: COMMON NORMALS: full ROM and supple Chest: COMMONS NORMALS: normal inspection of the chest and normal palpation of entire chest wall Resp: EFFORT & INSPECTION: Yes tachypneic and Yes respiratory distress AUSCULTATION: wheezes Cardio: COMMON NORMALS: regular rhythm and No murmurs present (Cardio) RATE: tachycardic RHYTHM: regular rhythm GI: COMMON NORMALS: Normal to inspection, nondistended, normoactive bowel sounds present, Soft to palpation, non-tender and no masses PALPATION: Yes Soft to palpation Extremity: COMMON NORMALS: normal to inspection and full ROM Neuro: COMMON NORMALS: patient oriented x3, moves all extremities and no focal motor deficits Psych: COMMON NORMALS: mental status grossly normal, Normal thought process present and cooperative THOUGHT PROCESS: Normal thought process present Skin: COMMON NORMALS: no rashes or lesions noted and no wounds GENERAL SKIN EXAM: no rashes or lesions noted Course Vital Signs: Vital signs: Vital Signs Temperature 97.8 F 02/07/22 03:34 Pulse Rate 109 H 02/07/22 04:33 Respiratory Rate 18 02/07/22 04:33 Blood Pressure 128/94 02/07/22 04:33 Pulse Oximetry 96 02/07/22 04:33 MDM - Asthma Medical Decision Making Patient presents here with an asthma exacerbation she feels much improved here after breathing treatments along magnesium. I did speak to her about possible admission and offered admission but she states she feels better would like to try another day of steroids at home and does see her asthma specialist tomorrow. She has no signs of pneumonia or pulmonary embolism pulse ox here is improved as well. We will discharge her she is to continue her steroids at home follow-up with her doctor tomorrow to schedule and return if worsening she understands agrees to plan. Lab Data : 02/07/22 03:49 02/07/22 03:49 Radiology Impressions Chest X-Ray 02/07/22 03:33 IMPRESSION: 1. No definite pneumonia or CHF. 2. Suspect mild hyperinflation of the lungs. 3. Other findings discussed above. Laboratory Results WBC 9.3 10^3/uL (4.5-13.0) 02/07/22 03:49 RBC 5.72 10^6/uL (4.1-5.3) H 02/07/22 03:49 Hgb 16.4 g/dL (11.5-15.3) H 02/07/22 03:49 Hct 49.2 % (37.0-47.0) H 02/07/22 03:49 MCV 86.0 fl (81-99) 02/07/22 03:49 MCH 28.7 pg (28.0-34.0) 02/07/22 03:49 MCHC 33.3 g/dL (30.0-36.0) 02/07/22 03:49 RDW 11.7 % (12.1-15.1) L 02/07/22 03:49 Plt Count 352 10^3/cmm (130-400) 02/07/22 03:49 MPV 9.7 fL (7.4-10.4) 02/07/22 03:49 Neut % (Auto) 41.0 % 02/07/22 03:49 Lymph % (Auto) 52.3 % 02/07/22 03:49 [place] % (Auto) 5.9 % 02/07/22 03:49 Eos % (Auto) 0.0 % 02/07/22 03:49 Baso % (Auto) 0.5 % 02/07/22 03:49 Neut # (Auto) 3.80 10^3/uL (1.8-8.0) 02/07/22 03:49 Lymph # (Auto) 4.9 10^3/uL (1.5-6.5) 02/07/22 03:49 [place] # (Auto) 0.6 10^3/uL (0.2-0.9) 02/07/22 03:49 Eos # (Auto) 0.0 10^3/uL (0.0-0.8) 02/07/22 03:49 Baso # (Auto) 0.1 10^3/uL (0.0-0.1) 02/07/22 03:49 Nucleated RBC % (auto) 0 % 02/07/22 03:49 Nucleated RBCs # 0.0 /100WBC 02/07/22 03:49 Sodium 140 mmol/L (136-145) 02/07/22 03:49 Potassium 3.3 mmol/L (3.5-5.1) L 02/07/22 03:49 Chloride 104 mmol/L (98-107) 02/07/22 03:49 Carbon Dioxide 22 mmol/L (22-29) 02/07/22 03:49 Anion Gap 17.3 (5-19) 02/07/22 03:49 BUN 21 mg/dL (6-20) H 02/07/22 03:49 Creatinine 1.0 mg/dL (0.5-0.9) H 02/07/22 03:49 GFR Calculation 71.4 mL/min (90-130) L 02/07/22 03:49 Glucose 90 mg/dL (65-115) 02/07/22 03:49 Calculated Osmolality 293 mOsm/kg (285-295) 02/07/22 03:49 Calcium 10.0 mg/dL (8.5-10.5) 02/07/22 03:49 Total Bilirubin 0.2 mg/dL (0.15-1.2) 02/07/22 03:49 AST 14 U/L (0-32) 02/07/22 03:49 ALT 18 U/L (0-33) 02/07/22 03:49 Alkaline Phosphatase 98 IU/L (35-105) 02/07/22 03:49 Total Protein 7.6 g/dL (6.6-8.7) 02/07/22 03:49 Albumin 5.0 g/dL (3.5-5.2) 02/07/22 03:49 Globulin 2.6 g/dL (1.3-4.6) 02/07/22 03:49 Discharge Plan Discharge Patient Disposition: Home Clinical Impression: Asthma with acute exacerbation Condition: Stable Prescriptions: No Action rizatriptan 10 mg tablet,disintegrating 10 mg PO Q2H PRN (Reason: Migraine Headache) 0RF Rx Instructions: do not exceed 3 doses per 24 hrs medroxyprogesterone [Depo-Provera] 150 mg/mL suspension 150 mg IM .EVERY 90 DAYS Qty: 1 3RF pantoprazole [Protonix] 40 mg tablet,delayed release (DR/EC) 40 mg PO DAILY 0RF azelastine 137 mcg (0.1 %) aerosol,spray 2 spray intranasal DAILY 0RF Rx Instructions: administer into each nostril can use twice daily prn trazodone 50 mg tablet 50 mg PO BEDTIME PRN (Reason: Sleep) 0RF Rx Instructions: may take 2 tabs prn metoclopramide HCl 10 mg tablet,disintegrating 10 mg PO Q6H Qty: 20 0RF dexamethasone sodium phosphate 4 mg/mL solution 8 mg IM ONCE Qty: 2 0RF methylprednisolone [Medrol (Norbert)] 4 mg tablets,dose pack See Rx Instructions PO PER PKG DIR Qty: 21 0RF Rx Instructions: PO PER PKG DIR amoxicillin-pot clavulanate 875-125 mg tablet 1 tab PO Q12H 10 Days Qty: 20 0RF Trelegy Ellipta 100-62.5-25 mcg blister with device 1 inh inhalation DAILY 0RF ondansetron HCl [Zofran] 4 mg tablet 4 mg PO Q8H PRN (Reason: Nausea) Qty: 20 0RF epinephrine 0.3 mg/0.3 mL auto-injector 0.3 mg IM Q10M PRN (Reason: allergic reaction) Qty: 1 1RF Rx Instructions: Administer into thigh at first sign of anaphylaxis. ibuprofen 600 mg tablet 600 mg PO Q8H PRN (Reason: pain) Qty: 60 0RF Hold Instructions: Doctor's Order montelukast 10 mg tablet 10 mg PO BEDTIME Qty: 30 2RF xfinmfhygt-aupkabwyvejvl-vcgl [Fioricet] 50-300-40 mg capsule 1 cap PO Q4H PRN (Reason: headache) Qty: 30 0RF albuterol sulfate [ProAir HFA] 90 mcg/actuation HFA aerosol inhaler See Rx Instructions .ROUTE .COMPLEX Qty: 8.5 1RF Dose Instruction: INHALE 2 PUFFS BY MOUTH EVERY 4 HOURS NEEDED FOR SHORTNESS OF BREATH OR WHEEZING Rx Instructions: INHALE 2 PUFFS BY MOUTH EVERY 4 HOURS NEEDED FOR SHORTNESS OF BREATH OR WHEEZING Diastat AcuDial 5-7.5-10 mg Kit 10 mg IA .ONE TIME PRN 0RF dihydroxyaluminum sodium carb 334 mg Tablet,Chewable 334 - 668 mg PO PRN 0RF Tylenol Extra Strength 500 mg Tablet 500 - 1,000 mg PO PRN 0RF topiramate 50 mg Tablet 100 mg PO BID 0RF Flonase Allergy Relief 50 mcg/actuation spray,suspension 1 spray INTRANASAL DAILY 0RF Rx Instructions: administer into each nostril ipratropium-albuterol 0.5 mg-3 mg(2.5 mg base)/3 mL solution for nebulization 3 ml inhalation Q6H PRN (Reason: shortness of breath or wheezing) Qty: 90 0RF multivitamin Tablet 1 tab PO DAILY 0RF cetirizine 10 mg Tablet 20 mg PO QAM 0RF guanfacine 1 mg Tablet 1 mg PO BEDTIME 0RF hydroxyzine HCl 25 mg Tablet 25 mg PO Q6H PRN (Reason: Itching) 0RF levetiracetam [Keppra XR] 500 mg Tablet Extended Release 24 Hr 3,000 mg PO BEDTIME 0RF albuterol sulfate 2.5 mg /3 mL (0.083 %) solution for nebulization 2.5 mg inhalation Q4H PRN (Reason: Shortness Of Breath) 0RF Reglan 5 mg tablet 5 mg PO DAILY PRN (Reason: nausea and vomiting) 10 Days Qty: 10 0RF magnesium oxide 400 mg magnesium capsule 400 mg PO DAILY PRN (Reason: headache) 10 Days Qty: 10 0RF prednisone 50 mg tablet 50 mg PO DAILY Qty: 5 0RF Discharge Orders: Discharge ED (Routine); Ordered 02/07/22 Ordered By: Efraín Hroner Referrals: Samantha Gurrola MD [Primary Care Provider] - 1-3 days Discharge Diet: Advance as tolerated Discharge Activity: Resume usual activity Patient Instructions: Asthma (ED) Coding Level of Care Code ED Psychometrician for Chg Fwd Exam Comprehensive
[2022-02-07] MEDS: magnesium sulfate premix 2 GM/50 ML PIGGYBACK IV (03:55)
[2022-02-07 03:57] VITALS: PULSE 124; RESP 16; O2SAT 94
[2022-02-07] MEDS: ipratropium-albuterol 3 mL Neb INHALATION (03:57)
[2022-02-07 04:11] VITALS: BP 152/94; PULSE 115; RESP 18; O2SAT 93
[2022-02-07 04:19] LABS: Basophils # 0.1 10^3/uL (0.0-0.1); Basophils % 0.5 %; Hematocrit 49.2 % (37.0-47.0); Hemoglobin 16.4 g/dL (11.5-15.3); Lymphocytes # 4.9 10^3/uL (1.5-6.5); Lymphocytes % 52.3 %; Mean Corpuscular HGB Conc 33.3 g/dL (30.0-36.0); Mean Corpuscular Hemoglobin 28.7 pg (28.0-34.0); Mean Platelet Volume 9.7 fL (7.4-10.4); Monocytes # 0.6 10^3/uL (0.2-0.9); Monocytes % 5.9 %; Nucleated Red Blood Cells % 0 %; Platelet Count 352 10^3/cmm (130-400); Red Blood Count 5.72 10^6/uL (4.1-5.3); Red Cell Distribution Width 11.7 % (12.1-15.1); White Blood Count 9.3 10^3/uL (4.5-13.0)
[2022-02-07 04:33] VITALS: BP 128/94; PULSE 109; RESP 18; O2SAT 96
[2022-02-07 04:40] LABS: Alanine Aminotransferase 18 U/L (0-33); Alkaline Phosphatase 98 IU/L (35-105); Anion Gap 17.3 (5-19); Aspartate Amino Transferase 14 U/L (0-32); Blood Urea Nitrogen 21 mg/dL (6-20); Carbon Dioxide 22 mmol/L (22-29); Chloride 104 mmol/L (98-107); Globulin 2.6 g/dL (1.3-4.6); Glomerular Filtration Rate 71.4 mL/min (90-130); Glucose 90 mg/dL (65-115); Osmolality Calculated 293 mOsm/kg (285-295); Potassium 3.3 mmol/L (3.5-5.1); Sodium 140 mmol/L (136-145); Total Bilirubin 0.2 mg/dL (0.15-1.2); Total Protein 7.6 g/dL (6.6-8.7)
[2022-02-07 05:19] VITALS: BP 126/81; PULSE 121; RESP 28; O2SAT 96
== END 2022-02-07 05:27 | disposition home or self-care (01) ==
PROVIDERS: Emergency Provider Emergency Medicine; PCP Pediatrics Adolescent Medicine
DX: J45.41 Moderate persistent asthma with (acute) exacerbation (principal); D72.19 Other eosinophilia; Z87.892 Personal history of anaphylaxis
CPT/HCPCS: 71045; 80053; 85025; 94640; 96365; 96375; 99284; J2930; J3475; J7611

== ENCOUNTER 2022-07-13 03:40 | Emergency (ER) | payer BC, MEDICAID, SELFPAY ==
[2022-07-13] VITALS (14 sets, daily range): BP systolic 121–144; BP diastolic 86–97; PULSE 104–134; RESP 16–29; TEMP 36.8; O2SAT 94–100; BMI 28.3
--- NOTE | 2022-07-13 03:49 | XRR_ITS ---
PROCEDURE INFORMATION: Exam: XR Chest Exam date and time: 07/13/2022 3:52 AM Age: 22 years old Clinical indication: Shortness of breath and wheezing; Prior surgery; Surgery type: Rotator cuff; Patient HX: C/O SOB with wheezing. History of asthma. TECHNIQUE: Imaging protocol: Radiologic exam of the chest. Views: 1 view. COMPARISON: CR XR chest 1V portable [id number] 02/07/2022 3:39 AM FINDINGS: Lungs: The lung parenchyma is clear. Pleural spaces: No pneumothorax. No pleural effusion. Heart/Mediastinum: The cardiomediastinal silhouette is within normal limits. Bones/joints: Unremarkable. XR/XR chest 1V portable [id number] IMPRESSION: No acute cardiopulmonary abnormality.
[2022-07-13] MEDS: magnesium sulfate premix 2 GM/50 ML PIGGYBACK IV (03:58)
--- NOTE | 2022-07-13 03:59 | W.ED.ASTHMA ---
HPI - Asthma General: Chief Complaint: Asthma Stated Complaint: Asthma Attach Time Seen by Provider: 07/13/22 03:49 Source: patient and family History of Present Illness: 22-year-old female with a history of asthma. She presents with sudden onset of shortness of breath and wheezing around an hour prior to arrival. She has had some congestion prior to this, but not too much problems breathing. She has multiple allergies. No significant chest pain although she notes her chest feels tight MD complaint: asthma attack Onset (ago): minute(s) Severity: moderate and similar to prior Context: none known Associated symptoms: Reports non-productive cough; Deny chest pain, fever(s), productive cough or syncope Asthma History: childhood onset Treatments Prior to Arrival: inhaled bronchodilator Related Data: Current Asthma Therapy: inhaled bronchodilator and inhaled steroid Review of Systems Const: Denies: fever(s) ENMT: Denies: throat pain Card: Denies: chest pain or syncope Resp: Reports: dyspnea and non-productive cough; Denies: productive cough GI: Denies: abdominal pain, nausea or vomiting Skin/Breast: Denies: rash PFSH ED PFSH: Medical History Allergy to alpha-gal Eosinophilic gastroenteropathy Gastroenterology in [facility] -Dr. 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 Managed by her neurologist in [facility], sees q 6 months. On Keppra, Topamax, prn valium. History of anaphylaxis Multiple foods and other exposures. 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 On Fasenra in addition to other medications. Migraine with vision changes. Moderate persistent asthma Diagnosed at the age of 4. Denies any intubations for asthma. 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 Tourette's on guanfacine Surgical History H/O shoulder surgery (~2018) right torn rotator cuff History of esophagogastroduodenoscopy (EGD) (~04/2020) eosinophilic microabscesses Family History Grandmother Heart disease Maternal great grandmother Diabetes Maternal great grandmother Hyperlipidemia maternal great grandmother Hypertension maternal great grandmother Thyroid condition maternal Endometriosis maternal Family/Other Ovarian cancer great aunt Hypertension maternal great aunt, maternal great uncle Multiple myeloma maternal uncle Mother Thyroid condition Denies family history of Colon cancer DVT (deep venous thrombosis) Breast cancer Pulmonary embolism Uterine cancer Stroke Social History Smoking and tobacco status: never smoked Alcohol intake: never Highest education level completed: High School Graduate Education level details: currently in [employer] Pets and animals: Yes Female Reproductive History: Spontaneous abortions: No Physical Exam Const: GENERAL APPEARANCE: cooperative, well kempt and ill appearing; not frail appearing ORIENTATION/CONSCIOUSNESS: Yes awake, Yes oriented to person and Yes oriented to place HENMT: COMMON NORMALS: normocephalic, atraumatic and Normal external nose present HEAD & SCALP: normocephalic and atraumatic FACE & SINUS: normal facial exam and face symmetric NOSE: Normal external nose present Eye: COMMON NORMALS: Equal, round and reactive pupils present and EOMs intact bilaterally PUPIL: Yes Equal, round and reactive pupils present Neck/C-Spine: GENERAL: Yes trachea midline Chest: CHEST: Yes Symmetrical chest wall rise Resp: EFFORT & INSPECTION: Yes tachypneic, Yes labored and Yes uses accessory muscles AUSCULTATION: wheezes and diminished lung sounds Cardio: COMMON NORMALS: regular rhythm RATE: tachycardic RHYTHM: regular rhythm GI: COMMON NORMALS: Normal to inspection, nondistended, normoactive bowel sounds present Extremity: COMMON NORMALS: no pedal edema Neuro: GIORGIO COMA SCALE: document GCS findings Giorgio coma scale eye opening: Spontaneous Giorgio coma scale verbal response: Orientated Giorgio coma scale motor response: Obey commands [place] coma scale total score: 15 SENSORIUM/ORIENTATION: Yes oriented to person and Yes oriented to place SENSORY EXAM: Yes extremities (intact) Psych: COMMON NORMALS: speech normal APPEARANCE: Yes well kempt SPEECH: Yes normal speech Skin: COMMON NORMALS: no rashes or lesions noted GENERAL SKIN EXAM: no rashes or lesions noted Course Vital Signs: Vital signs: Vital Signs Temperature 98.2 F 07/13/22 03:42 Pulse Rate 106 H 07/13/22 05:23 Respiratory Rate 21 H 07/13/22 05:23 Blood Pressure 129/92 07/13/22 05:23 Pulse Oximetry 98 07/13/22 05:23 Oxygen Delivery Me thod 07/13/22 05:23 Oxygen Flow Rate 2 07/13/22 05:23 MDM - Asthma Medical Decision Making 22-year-old female history of asthma. She presents with tightness to the chest and wheezing with trouble breathing. She is much improved currently. This is after DuoNeb, magnesium, and Solu-Medrol. Currently she is no longer tachypneic. Saturations are 98%. She is much more comfortable. Chest x-ray is negative. Laboratories not remarkable. She will have 1 more albuterol nebulizer treatment here. She will be allowed home on a burst of steroid medication at that point. Lab Data : 07/13/22 03:54 07/13/22 03:54 Radiology Impressions Chest X-Ray 07/13/22 03:49 IMPRESSION: No acute cardiopulmonary abnormality. Laboratory Results WBC 8.0 10^3/uL (4.5-13.0) 07/13/22 03:54 RBC 5.78 10^6/uL (4.1-5.3) H 07/13/22 03:54 Hgb 16.5 g/dL (11.5-15.3) H 07/13/22 03:54 Hct 49.8 % (37.0-47.0) H 07/13/22 03:54 MCV 86.2 fl (81-99) 07/13/22 03:54 MCH 28.5 pg (28.0-34.0) 07/13/22 03:54 MCHC 33.1 g/dL (30.0-36.0) 07/13/22 03:54 RDW 11.7 % (12.1-15.1) L 07/13/22 03:54 Plt Count 352 10^3/cmm (130-400) 07/13/22 03:54 MPV 9.5 fL (7.4-10.4) 07/13/22 03:54 Neut % (Auto) 45.8 % 07/13/22 03:54 Lymph % (Auto) 37.7 % 07/13/22 03:54 [place] % (Auto) 7.4 % 07/13/22 03:54 Eos % (Auto) 7.7 % 07/13/22 03:54 Baso % (Auto) 0.9 % 07/13/22 03:54 Neut # (Auto) 3.68 10^3/uL (1.8-8.0) 07/13/22 03:54 Lymph # (Auto) 3.0 10^3/uL (1.5-6.5) 07/13/22 03:54 [place] # (Auto) 0.6 10^3/uL (0.2-0.9) 07/13/22 03:54 Eos # (Auto) 0.6 10^3/uL (0.0-0.8) 07/13/22 03:54 Baso # (Auto) 0.1 10^3/uL (0.0-0.1) 07/13/22 03:54 Nucleated RBC % (auto) 0 % 07/13/22 03:54 Nucleated RBCs # 0.0 /100WBC 07/13/22 03:54 Sodium 141 mmol/L (136-145) 07/13/22 03:54 Potassium 3.9 mmol/L (3.5-5.1) 07/13/22 03:54 Chloride 106 mmol/L (98-107) 07/13/22 03:54 Carbon Dioxide 23 mmol/L (22-29) 07/13/22 03:54 Anion Gap 15.9 (5-19) 07/13/22 03:54 BUN 12 mg/dL (6-20) 07/13/22 03:54 Creatinine 0.9 mg/dL (0.5-0.9) 07/13/22 03:54 GFR Calculation 79.8 mL/min (90-130) L 07/13/22 03:54 Glucose 110 mg/dL (65-115) 07/13/22 03:54 Calculated Osmolality 292 mOsm/kg (285-295) 07/13/22 03:54 Calcium 9.7 mg/dL (8.5-10.5) 07/13/22 03:54 Total Bilirubin 0.3 mg/dL (0.15-1.2) 07/13/22 03:54 AST 17 U/L (0-32) 07/13/22 03:54 ALT 19 U/L (0-33) 07/13/22 03:54 Alkaline Phosphatase 94 U/L (35-105) 07/13/22 03:54 Total Protein 7.8 g/dL (6.6-8.7) 07/13/22 03:54 Albumin 4.7 g/dL (3.5-5.2) 07/13/22 03:54 Globulin 3.1 g/dL (1.3-4.6) 07/13/22 03:54 Discharge Plan Discharge Patient Disposition: Home Clinical Impression: Asthma with acute exacerbation Condition: Stable Prescriptions: New prednisone 10 mg tablet See Rx Instructions .ROUTE .COMPLEX Qty: 30 0RF Rx Instructions: 4 [id number], 3 SBdIcoa6p, 2 RQiCqlc5l, 1 AFlKnos1x Discontinued methylprednisolone [Medrol (Norbert)] 4 mg tablets,dose pack See Rx Instructions PO PER PKG DIR Qty: 21 0RF Rx Instructions: PO PER PKG DIR prednisone 20 mg tablet 40 mg PO DAILY 5 Days Qty: 10 0RF No Action rizatriptan 10 mg tablet,disintegrating 10 mg PO Q2H PRN (Reason: Migraine Headache) Rx Instructions: do not exceed 3 doses per 24 hrs pantoprazole [Protonix] 40 mg tablet,delayed release (DR/EC) 40 mg PO DAILY azelastine 137 mcg (0.1 %) aerosol,spray 2 spray intranasal DAILY Rx Instructions: administer into each nostril can use twice daily prn trazodone 50 mg tablet 50 mg PO BEDTIME PRN (Reason: Sleep) Rx Instructions: may take 2 tabs prn metoclopramide HCl 10 mg tablet,disintegrating 10 mg PO Q6H Qty: 20 0RF dexamethasone sodium phosphate 4 mg/mL solution 8 mg IM ONCE Qty: 2 0RF Trelegy Ellipta 100-62.5-25 mcg blister with device 1 inh inhalation DAILY medroxyprogesterone [Depo-Provera] 150 mg/mL suspension 150 mg IM .EVERY 90 DAYS Qty: 1 4RF Nurtec ODT 75 mg tablet,disintegrating PO ONCE Tespire INJECTION ondansetron HCl [Zofran] 4 mg tablet 4 mg PO Q8H PRN (Reason: Nausea) Qty: 20 0RF epinephrine 0.3 mg/0.3 mL auto-injector 0.3 mg IM Q10M PRN (Reason: allergic reaction) Qty: 1 1RF Rx Instructions: Administer into thigh at first sign of anaphylaxis. montelukast 10 mg tablet 10 mg PO BEDTIME Qty: 30 2RF albuterol sulfate [ProAir HFA] 90 mcg/actuation HFA aerosol inhaler See Rx Instructions .ROUTE .COMPLEX Qty: 8.5 3RF Dose Instruction: INHALE 2 PUFFS BY MOUTH EVERY 4 HOURS NEEDED FOR SHORTNESS OF BREATH OR WHEEZING Rx Instructions: INHALE 2 PUFFS BY MOUTH EVERY 4 HOURS NEEDED FOR SHORTNESS OF BREATH OR WHEEZING dihydroxyaluminum sodium carb 334 mg Tablet,Chewable 334 - 668 mg PO PRN Tylenol Extra Strength 500 mg Tablet 500 - 1,000 mg PO PRN topiramate 50 mg Tablet 100 mg PO BID Flonase Allergy Relief 50 mcg/actuation spray,suspension 1 spray INTRANASAL DAILY Rx Instructions: administer into each nostril ipratropium-albuterol 0.5 mg-3 mg(2.5 mg base)/3 mL solution for nebulization 3 ml inhalation Q6H PRN (Reason: shortness of breath or wheezing) Qty: 90 0RF multivitamin Tablet 1 tab PO DAILY cetirizine 10 mg Tablet 20 mg PO QAM guanfacine 1 mg Tablet 1 mg PO BEDTIME hydroxyzine HCl 25 mg Tablet 25 mg PO Q6H PRN (Reason: Itching) levetiracetam [Keppra XR] 500 mg Tablet Extended Release 24 Hr 3,000 mg PO BEDTIME albuterol sulfate 2.5 mg /3 mL (0.083 %) solution for nebulization 2.5 mg inhalation Q4H PRN (Reason: Shortness Of Breath) Discharge Orders: Discharge ED (Routine); Ordered 07/13/22 Ordered By: Vasu Johnson Referrals: Samantha Gurrola MD [Primary Care Provider] - 4-7 days Discharge Diet: Advance as tolerated Discharge Activity: Increase activity as tolerated Patient Instructions: Asthma Exacerbation - Adult Activity Restrictions/Additional Instructions: Medication as directed. Use your albuterol every 4 hours while awake for the next 48 hours, then as needed. Return for any worsening shortness of breath despite treatment, fever, worsening cough, chest discomfort, any other concerning symptoms Coding Level of Care Code ED Ordnance Keeper for Jaimieg Fwd Exam Comprehensive
[2022-07-13 04:01] LABS: Basophils # 0.1 10^3/uL (0.0-0.1); Basophils % 0.9 %; Eosinophils # 0.6 10^3/uL (0.0-0.8); Eosinophils % 7.7 %; Hematocrit 49.8 % (37.0-47.0); Hemoglobin 16.5 g/dL (11.5-15.3); Lymphocytes % 37.7 %; Mean Corpuscular HGB Conc 33.1 g/dL (30.0-36.0); Mean Corpuscular Hemoglobin 28.5 pg (28.0-34.0); Mean Corpuscular Volume 86.2 fl (81-99); Mean Platelet Volume 9.5 fL (7.4-10.4); Monocytes # 0.6 10^3/uL (0.2-0.9); Monocytes % 7.4 %; Neutrophils # 3.68 10^3/uL (1.8-8.0); Neutrophils % 45.8 %; Nucleated Red Blood Cells % 0 %; Platelet Count 352 10^3/cmm (130-400); Red Blood Count 5.78 10^6/uL (4.1-5.3); Red Cell Distribution Width 11.7 % (12.1-15.1)
[2022-07-13] MEDS: ipratropium-albuterol 3 mL Neb INHALATION (04:01)
--- NOTE | 2022-07-13 04:03 | PC.NURSE ---
respiratory at bedside to administer ordered treatments. mother at bedside with service animal offering emotional support.
[2022-07-13 04:28] LABS: Alanine Aminotransferase 19 U/L (0-33); Albumin Level 4.7 g/dL (3.5-5.2); Alkaline Phosphatase 94 U/L (35-105); Aspartate Amino Transferase 17 U/L (0-32); Blood Urea Nitrogen 12 mg/dL (6-20); Calcium 9.7 mg/dL (8.5-10.5); Carbon Dioxide 23 mmol/L (22-29); Chloride 106 mmol/L (98-107); Globulin 3.1 g/dL (1.3-4.6); Glomerular Filtration Rate 79.8 mL/min (90-130); Glucose 110 mg/dL (65-115); Osmolality Calculated 292 mOsm/kg (285-295); Sodium 141 mmol/L (136-145); Total Bilirubin 0.3 mg/dL (0.15-1.2); Total Protein 7.8 g/dL (6.6-8.7)
[2022-07-13 04:35] LABS: Anion Gap 15.9 (5-19); Potassium 3.9 mmol/L (3.5-5.1)
--- NOTE | 2022-07-13 05:48 | PC.NURSE ---
RT at bedside for updraft
== END 2022-07-13 06:54 | disposition home or self-care (01) ==
PROVIDERS: Emergency Provider Emergency Medicine; PCP Pediatrics Adolescent Medicine
DX: J45.901 Unspecified asthma with (acute) exacerbation (principal)
CPT/HCPCS: 71045; 80053; 85025; 94640; 96365; 99285; J2930; J3475; J7611

== ENCOUNTER → 2022-09-11 11:40 | Outpatient (BNVA) | payer BC, MEDICAID, SELFPAY | PROVIDERS: PCP Pediatrics Adolescent Medicine; Visit Provider Nurse Practitioner | DX: J02.9 Acute pharyngitis, unspecified (principal); J45.909 Unspecified asthma, uncomplicated | CPT/HCPCS: 87070; 87880 ==

== ENCOUNTER 2022-10-02 00:50 | Emergency (ER) | payer BC, MEDICAID, SELFPAY ==
[2022-10-02 00:57] VITALS: BP 167/95; PULSE 122; RESP 20; TEMP 37.4; O2SAT 96; BMI 31.7
[2022-10-02 01:01] VITALS: PULSE 126; RESP 16; O2SAT 96
--- NOTE | 2022-10-02 01:05 | XRR_ITS ---
PROCEDURE INFORMATION: Exam: XR Chest Exam date and time: 10/02/2022 2:08 AM Age: 22 years old Clinical indication: Patient HX: C/O cough. History of asthma. TECHNIQUE: Imaging protocol: Radiologic exam of the chest. Views: 1 view. COMPARISON: CR (CHEST, ) 07/13/2022 3:52 AM FINDINGS: Lungs: Unremarkable. No consolidation. Pleural spaces: Unremarkable. No pleural effusion. No pneumothorax. Heart/Mediastinum: Unremarkable. No cardiomegaly. Bones/joints: Unremarkable. XR/XR chest 1V portable [id number] IMPRESSION: No acute findings.
--- NOTE | 2022-10-02 01:11 | ED_ITS ---
HPI - SOB/Dyspnea General: Chief Complaint: Shortness of Breath/Dyspnea Stated Complaint: coughing, sob Time Seen by Provider: 10/02/22 01:05 Source: patient Mode of arrival: ambulatory Limitations: no limitations History of Present Illness: HPI Narrative: 22-year-old female has a history of asthma states over the last 2 hours she is feels like she just cannot get a deep breath in. States she has had some dyspnea she denies any cough denies any fever states that her dyspnea is worse when she tries to take deep breaths. She has no history of blood clots no recent long trips is on control. Denies any pain currently denies any vomiting or diarrhea. Associated symptoms: Deny abdominal pain, chest pain, fever(s), nausea or vomit ing Review of Systems Const: Denies: fever(s), chills, body aches or change in appetite Eyes: Denies: blurry vision or eye discomfort ENMT: Denies: throat pain or dental pain Card: Denies: chest pain Resp: Reports: dyspnea GI: Denies: abdominal pain, nausea, vomiting or diarrhea : Denies: dysuria Musc: Denies: neck pain or back pain Skin/Breast: Denies: rash Neuro: Denies: headache(s) Psych: Denies: depression Issac/Lymph: Denies: easy bruising All/Imm: Denies: urticaria PFSH ED PFSH: Medical History Allergy to alpha-gal Eosinophilic gastroenteropathy Gastroenterology in [facility] -Dr. 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 Managed by her neurologist in [facility], sees q 6 months. On Keppra, Topamax, prn valium. History of anaphylaxis Multiple foods and other exposures. 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 On Fasenra in addition to other medications. Migraine with vision changes. Moderate persistent asthma Diagnosed at the age of 4. Denies any intubations for asthma. 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 Tourette's on guanfacine Surgical History H/O shoulder surgery (~2018) right torn rotator cuff History of esophagogastroduodenoscopy (EGD) (~04/2020) eosinophilic microabscesses Family History Grandmother Heart disease Maternal great grandmother Diabetes Maternal great grandmother Hyperlipidemia maternal great grandmother Hypertension maternal great grandmother Thyroid condition maternal Endometriosis maternal Family/Other Ovarian cancer great aunt Hypertension maternal great aunt, maternal great uncle Multiple myeloma maternal uncle Mother Thyroid condition Denies family history of Colon cancer DVT (deep venous thrombosis) Breast cancer Pulmonary embolism Uterine cancer Stroke Social History Smoking and tobacco status: never smoked Alcohol intake: never Highest education level completed: High School Graduate Education level details: currently in college Pets and animals: Yes Female Reproductive History: Spontaneous abortions: No Physical Exam Const: COMMON NORMALS: no acute distress, patient oriented x3 and healthy appearing HENMT: COMMON NORMALS: normocephalic and atraumatic HEAD & SCALP: normocephalic and atraumatic Eye: COMMON NORMALS: Equal, round and reactive pupils present and EOMs intact bilaterally PUPIL: Yes Equal, round and reactive pupils present Neck/C-Spine: COMMON NORMALS: full ROM and supple Chest: COMMONS NORMALS: normal inspection of the chest and normal palpation of entire chest wall Resp: COMMON NORMALS: normal respiratory effort, No retractions, No use of accessory muscles and clear to auscultation bilaterally AUSCULTATION: clear to auscultation bilaterally Cardio: COMMON NORMALS: regular rhythm and No murmurs present (Cardio) RATE: tachycardic RHYTHM: regular rhythm GI: COMMON NORMALS: Normal to inspection, nondistended, normoactive bowel sounds present, Soft to palpation, non-tender and no masses PALPATION: Yes Soft to palpation Extremity: COMMON NORMALS: normal to inspection and full ROM Neuro: COMMON NORMALS: patient oriented x3, moves all extremities and no focal motor deficits Psych: COMMON NORMALS: mental status grossly normal, Normal thought process present and cooperative THOUGHT PROCESS: Normal thought process present Skin: COMMON NORMALS: no rashes or lesions noted and no wounds GENERAL SKIN EXAM: no rashes or lesions noted Course Vital Signs: Vital signs: Vital Signs Temperature 99.3 F 10/02/22 00:57 Pulse Rate 114 H 10/02/22 02:00 Respiratory Rate 20 H 10/02/22 02:00 Blood Pressure 134/85 10/02/22 02:00 Pulse Oximetry 97 10/02/22 02:00 Oxygen Delivery Me thod 10/02/22 02:00 MDM - SOB/Dyspnea Medical Decision Making Patient presents for shortness of breath likely from her asthma she is well- appearing here in no distress pulse ox 98% D-dimer is negative no signs of p ulmonary embolism troponins are normal she is stable for discharge she is to follow-up PCP and return if worsening. Lab Data 10/02/22 01:19 10/02/22 01:19 Labs/Radiology: Radiology Impressions Chest X-Ray 10/02/22 01:05 IMPRESSION: No acute findings. Laboratory Results WBC 17.8 10^3/uL (4.5-13.0) H 10/02/22 01:19 RBC 5.40 10^6/uL (4.1-5.3) H 10/02/22 01:19 Hgb 15.8 g/dL (11.5-15.3) H 10/02/22 01:19 Hct 46.6 % (37.0-47.0) 10/02/22 01:19 MCV 86.3 fl (81-99) 10/02/22 01:19 MCH 29.3 pg (28.0-34.0) 10/02/22 01:19 MCHC 33.9 g/dL (30.0-36.0) 10/02/22 01:19 RDW 11.8 % (12.1-15.1) L 10/02/22 01:19 Plt Count 336 10^3/cmm (130-400) 10/02/22 01:19 MPV 9.6 fL (7.4-10.4) 10/02/22 01:19 Neut % (Auto) 75.6 % 10/02/22 01:19 Lymph % (Auto) 13.3 % 10/02/22 01:19 Tompkins % (Auto) 6.1 % 10/02/22 01:19 Eos % (Auto) 4.2 % 10/02/22 01:19 Baso % (Auto) 0.4 % 10/02/22 01:19 Neut # (Auto) 13.48 10^3/uL (1.8-8.0) H 10/02/22 01:19 Lymph # (Auto) 2.4 10^3/uL (1.5-6.5) 10/02/22 01:19 Tompkins # (Auto) 1.1 10^3/uL (0.2-0.9) H 10/02/22 01:19 Eos # (Auto) 0.7 10^3/uL (0.0-0.8) 10/02/22 01:19 Baso # (Auto) 0.1 10^3/uL (0.0-0.1) 10/02/22 01:19 Nucleated RBC % (auto) 0 % 10/02/22 01:19 Nucleated RBCs # 0.0 /100WBC 10/02/22 01:19 D-Dimer <= 0.27 ug/mIFEU (0-0.59) 10/02/22 01:19 Sodium 139 mmol/L (136-145) 10/02/22 01:19 Potassium 3.5 mmol/L (3.5-5.1) 10/02/22 01:19 Chloride 104 mmol/L (98-107) 10/02/22 01:19 Carbon Dioxide 24 mmol/L (22-29) 10/02/22 01:19 Anion Gap 14.5 (5-19) 10/02/22 01:19 BUN 11 mg/dL (6-20) 10/02/22 01:19 Creatinine 1.0 mg/dL (0.5-0.9) H 10/02/22 01:19 GFR Calculation 70.7 mL/min (90-130) L 10/02/22 01:19 Glucose 85 mg/dL (65-115) 10/02/22 01:19 Calculated Osmolality 287 mOsm/kg (285-295) 10/02/22 01:19 Calcium 9.7 mg/dL (8.5-10.5) 10/02/22 01:19 Total Bilirubin 0.3 mg/dL (0.15-1.2) 10/02/22 01:19 AST 11 U/L (0-32) 10/02/22 01:19 ALT 17 U/L (0-33) 10/02/22 01:19 Alkaline Phosphatase 96 U/L (35-105) 10/02/22 01:19 Troponin T Baseline 6 ng/L (0-10) 10/02/22 01:19 Total Protein 7.4 g/dL (6.6-8.7) 10/02/22 01:19 Albumin 4.4 g/dL (3.5-5.2) 10/02/22 01:19 Globulin 3.0 g/dL (1.3-4.6) 10/02/22 01:19 HCG, Qual Negative (Negative) 10/02/22 01:19 Influenza Type A Ag negative (Negative) 10/02/22 01:19 Influenza Type B Ag negative (Negative) 10/02/22 01:19 SARS-CoV-2 Ag (Rapid) negative (Negative) 10/02/22 01:19 EKG Data EKG 1: I personally reviewed and interpreted this EKG as follows: EKG Interpretation Date: 10/02/22 EKG interpretation time: 01:12 Interpretation: sinus tach hr [address] or t wave abnormalities qrs 81 qtc 410 Discharge Plan Discharge Patient Disposition: Home Clinical Impression: Dyspnea Condition: Stable Prescriptions: No Action rizatriptan 10 mg tablet,disintegrating 10 mg PO Q2H PRN (Reason: Migraine Headache) Rx Instructions: do not exceed 3 doses per 24 hrs pantoprazole [Protonix] 40 mg tablet,delayed release (DR/EC) 40 mg PO DAILY azelastine 137 mcg (0.1 %) aerosol,spray 2 spray intranasal DAILY Rx Instructions: administer into each nostril can use twice daily prn trazodone 50 mg tablet 50 mg PO BEDTIME PRN (Reason: Sleep) Rx Instructions: may take 2 tabs prn metoclopramide HCl 10 mg tablet,disintegrating 10 mg PO Q6H Qty: 20 0RF dexamethasone sodium phosphate 4 mg/mL solution 8 mg IM ONCE Qty: 2 0RF Trelegy Ellipta 100-62.5-25 mcg blister with device 1 inh inhalation DAILY medroxyprogesterone [Depo-Provera] 150 mg/mL suspension 150 mg IM .EVERY 90 DAYS Qty: 1 4RF Nurtec ODT 75 mg tablet,disintegrating PO ONCE Tespire INJECTION albuterol sulfate [ProAir HFA] 90 mcg/actuation HFA aerosol inhaler 2 puff inhalation Q4H PRN (Reason: shortness of breath or wheezing) Qty: 8.5 3RF Emgality Pen 120 mg/mL pen injector SUBCUT ondansetron 4 mg tablet,disintegrating 4 mg PO DAILY PRN (Reason: nausea and vomiting) Qty: 2 0RF montelukast 10 mg tablet 10 mg PO BEDTIME Qty: 30 2RF albuterol sulfate [ProAir HFA] 90 mcg/actuation HFA aerosol inhaler See Rx Instructions .ROUTE .COMPLEX Qty: 8.5 3RF Dose Instruction: INHALE 2 PUFFS BY MOUTH EVERY 4 HOURS NEEDED FOR SHORTNESS OF BREATH OR WHEEZING Rx Instructions: INHALE 2 PUFFS BY MOUTH EVERY 4 HOURS NEEDED FOR SHORTNESS OF BREATH OR WHEEZING epinephrine 0.3 mg/0.3 mL auto-injector 0.3 mg IM ONCE PRN (Reason: allergic reaction) Qty: 2 1RF ibuprofen 600 mg tablet 600 mg PO Q8H PRN (Reason: pain) Qty: 60 0RF Hold Instructions: Doctor's Order Tylenol Extra Strength 500 mg Tablet 500 - 1,000 mg PO PRN topiramate 50 mg Tablet 100 mg PO BID Flonase Allergy Relief 50 mcg/actuation spray,suspension 1 spray INTRANASAL DAILY Rx Instructions: administer into each nostril ipratropium-albuterol 0.5 mg-3 mg(2.5 mg base)/3 mL solution for nebulization 3 ml inhalation Q6H PRN (Reason: shortness of breath or wheezing) Qty: 90 0RF multivitamin Tablet 1 tab PO DAILY cetirizine 10 mg Tablet 20 mg PO QAM guanfacine 1 mg Tablet 1 mg PO BEDTIME hydroxyzine HCl 25 mg Tablet 25 mg PO Q6H PRN (Reason: Itching) levetiracetam [Keppra XR] 500 mg Tablet Extended Release 24 Hr 3,000 mg PO BEDTIME albuterol sulfate 2.5 mg /3 mL (0.083 %) solution for nebulization 2.5 mg inhalation Q4H PRN (Reason: Shortness Of Breath) prednisone 10 mg tablet See Rx Instructions .ROUTE .COMPLEX Qty: 30 0RF Rx Instructions: 4 [id number], 3 UVrUieb2t, 2 RVqQilm6p, 1 QQuBdkh2p Discharge Orders: Discharge ED (Routine); Ordered 10/02/22 Ordered By: Efraín Horner Referrals: Samantha Gurrola MD [Primary Care Provider] - 1-3 days Discharge Diet: Advance as tolerated Discharge Activity: Resume usual activity Patient Instructions: Dyspnea (ED) Coding Level of Care Code ED Animal Trainer for Chg Fwd Exam Comprehensive
--- NOTE | 2022-10-02 01:12 | ECG_ITS ---
[facility] Test Date: 2022-10-02 Pat Name: Anusha Carrasco Department: Room: Gender: Female Ticker Wirer: : 2000 Requested By: Efraín Horner Order Number: [id number] Zain MD: Valentina Hubbard M.D. Measurements Intervals [place] Rate: 122 P: 52 NJ: 157 QRS: 92 QRSD: 81 T: 27 QT: 338 QTc: 482 Interpretive Statements SINUS TACHYCARDIA BORDERLINE RIGHT AXIS DEVIATION [QRS AXIS > 90] NONSPECIFIC T-WAVE ABNORMALITY ABNORMAL RHYTHM ECG Compared to ECG 02/05/2022 02:20:55 T-wave abnormality now present Electronically Signed On 10-03-2022 12:30:37 PROPOSAL WRITER by Valentina Hubbard M.D. [id number]
[2022-10-02] MEDS: LORazepam 1 mg Tablet PO (01:28)
[2022-10-02] MEDS: sodium chloride 0.9% 1,000 ML 999 ML IV (01:28)
[2022-10-02 01:30] LABS: Basophils # 0.1 10^3/uL (0.0-0.1); Basophils % 0.4 %; Eosinophils # 0.7 10^3/uL (0.0-0.8); Eosinophils % 4.2 %; Hematocrit 46.6 % (37.0-47.0); Hemoglobin 15.8 g/dL (11.5-15.3); Lymphocytes # 2.4 10^3/uL (1.5-6.5); Lymphocytes % 13.3 %; Mean Corpuscular HGB Conc 33.9 g/dL (30.0-36.0); Mean Corpuscular Hemoglobin 29.3 pg (28.0-34.0); Mean Corpuscular Volume 86.3 fl (81-99); Mean Platelet Volume 9.6 fL (7.4-10.4); Monocytes # 1.1 10^3/uL (0.2-0.9); Monocytes % 6.1 %; Neutrophils # 13.48 10^3/uL (1.8-8.0); Neutrophils % 75.6 %; Nucleated Red Blood Cells % 0 %; Platelet Count 336 10^3/cmm (130-400); Red Cell Distribution Width 11.8 % (12.1-15.1); White Blood Count 17.8 10^3/uL (4.5-13.0)
[2022-10-02 01:46] LABS: HCG, Serum Qual Negative (Negative)
[2022-10-02 01:47] LABS: D Dimer <= 0.27 ug/mIFEU (0-0.59)
[2022-10-02 01:48] LABS: Influenza A by IFA negative (Negative); Influenza B by IFA negative (Negative); SARS Covid-2 Antigen negative (Negative)
[2022-10-02 01:51] LABS: Alanine Aminotransferase 17 U/L (0-33); Albumin Level 4.4 g/dL (3.5-5.2); Alkaline Phosphatase 96 U/L (35-105); Anion Gap 14.5 (5-19); Aspartate Amino Transferase 11 U/L (0-32); Blood Urea Nitrogen 11 mg/dL (6-20); Calcium 9.7 mg/dL (8.5-10.5); Carbon Dioxide 24 mmol/L (22-29); Chloride 104 mmol/L (98-107); Glomerular Filtration Rate 70.7 mL/min (90-130); Glucose 85 mg/dL (65-115); Osmolality Calculated 287 mOsm/kg (285-295); Potassium 3.5 mmol/L (3.5-5.1); Sodium 139 mmol/L (136-145); Total Bilirubin 0.3 mg/dL (0.15-1.2); Total Protein 7.4 g/dL (6.6-8.7)
[2022-10-02 02:00] VITALS: BP 134/85; PULSE 114; RESP 20; O2SAT 97
[2022-10-02 02:05] LABS: Troponin(5th) Baseline 6 ng/L (0-10)
[2022-10-02 02:24] VITALS: BP 134/85; PULSE 104; RESP 18; O2SAT 97
== END 2022-10-02 02:23 | disposition home or self-care (01) ==
PROVIDERS: Emergency Provider Emergency Medicine; PCP Pediatrics Adolescent Medicine
DX: R06.00 Dyspnea, unspecified (principal); Z20.822 Contact with and (suspected) exposure to COVID-19
CPT/HCPCS: 71045; 80053; 84484; 84703; 85025; 85378; 87426; 87804; 93005; 96360; 99285; J7030

== ENCOUNTER 2023-06-28 11:22 | Emergency (ER) | payer MEDICAID, SELFPAY ==
[2023-06-28 11:39] VITALS: BP 157/108; PULSE 116; RESP 16; TEMP 37.3; O2SAT 94
--- NOTE | 2023-06-28 11:39 | XRR_ITS ---
PROCEDURE INFORMATION: Exam: XR Chest Exam date and time: 06/28/2023 12:26 PM Age: 23 years old Clinical indication: Cough and dyspnea; Additional info: Dyspnea/cough TECHNIQUE: Imaging protocol: Radiologic exam of the chest. Views: 1 view. COMPARISON: CR XR chest 1V portable [id number] 10/02/2022 2:08 AM FINDINGS: Lungs: Unremarkable. No consolidation. Pleural spaces: Unremarkable. No pleural effusion. No pneumothorax. Heart/Mediastinum: Unremarkable. No cardiomegaly. Bones/joints: Unremarkable. XR/XR chest 1V portable [id number] IMPRESSION: No acute findings.
--- NOTE | 2023-06-28 11:40 | W.ED.SOB ---
HPI - SOB/Dyspnea General: Chief Complaint: Shortness of Breath/Dyspnea Stated Complaint: sob, coughing, weakness Time Seen by Provider: 06/28/23 11:38 Source: patient Mode of arrival: ambulatory History of Present Illness: HPI Narrative: 23-year-old female presents emergency room complaining of shortness of breath and cough for the last several days progressively worsening she uses albuterol occasionally. She has a history of asthma. The albuterol does help some. She denies any fever cough is mildly productive. No vomiting no diarrhea no myalgias no anosmia. MD elicited complaint: shortness of breath and cough Pertinent past history: asthma Timing: constant Exacerbating factors: nothing Relieving factors: nothing Known history of: asthma Associated symptoms: Deny abdominal pain, chest congestion, chest pain, cough, diaphoresis, dizziness, extremity pain, fever(s), hemoptysis, lightheadedness, myalgias, nausea, orthopnea, palpitations, paresthesias, polydipsia, polyuria, rash, sense of impending doom, syncope or vomiting Review of Systems Const: Reports: fatigue; Denies: fever(s), chills or diaphoresis ENMT: Denies: throat pain, ear or mastoid pain, nasal discharge or nasal congestion Card: Denies: chest pain, palpitations, lightheadedness, syncope or orthopnea Resp: Denies: hemoptysis or chest congestion GI: Denies: abdominal pain, nausea or vomiting : Denies: flank pain, difficulty voiding, dysuria, urinary frequency or urinary urgency Musc: Denies: extremity pain Skin/Breast: Denies: rash or pruritus Neuro: Denies: dizziness Endo: Denies: polyuria or polydipsia PFSH ED PFSH: Medical History Allergy to alpha-gal Eosinophilic gastroenteropathy Gastroenterology in [facility] -Dr. 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 Managed by her neurologist in [place] at [facility], sees q 6 months. On Keppra, Topamax, prn valium. History of anaphylaxis Multiple foods and other exposures. 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 On Fasenra in addition to other medications. Migraine with vision changes. Moderate persistent asthma Diagnosed at the age of 4. Denies any intubations for asthma. 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 Severe allergy Severe persistent asthma Tourette's on guanfacine Surgical History H/O shoulder surgery (~2017) right torn rotator cuff History of esophagogastroduodenoscopy (EGD) (~04/2020) eosinophilic microabscesses Family History Grandmother Heart disease Maternal great grandmother Diabetes Maternal great grandmother Hyperlipidemia maternal great grandmother Hypertension maternal great grandmother Thyroid condition maternal Endometriosis maternal Family/Other Ovarian cancer great aunt Hypertension maternal great aunt, maternal great uncle Multiple myeloma maternal uncle Mother Thyroid condition Other Dementia Lung disease Denies family history of Colon cancer DVT (deep venous thrombosis) CAD (coronary artery disease) Clotting disorder Psychiatric illness Chronic kidney disease (CKD) Breast cancer Anesthesia complication Bleeding disorder Pulmonary embolism Uterine cancer Stroke Social History Smoking and tobacco status: never smoked Alcohol intake: current Alcohol intake frequency: holidays/special occasions only Substance/Drug Use: never Lives independently: Yes Marital status: Single Highest education level completed: High School Graduate Education level details: currently in college Current 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 status: disabled Pets and animals: Yes (service animal) Pets & animals: dog(s) Special cooper needs: No Agree to transfusion: Yes Female Reproductive History: Spontaneous abortions: No Physical Exam Const: GENERAL APPEARANCE: cooperative ORIENTATION/CONSCIOUSNESS: Yes awake, Yes oriented to person, Yes oriented to place and Yes oriented to time HENMT: COMMON NORMALS: normocephalic, atraumatic and hearing grossly normal bilaterally HEAD & SCALP: normocephalic and atraumatic Resp: COMMON NORMALS: normal respiratory effort, No retractions and No use of accessory muscles AUSCULTATION: wheezes Cardio: COMMON NORMALS: regular rhythm and No murmurs present (Cardio) RATE: tachycardic RHYTHM: regular rhythm GI: COMMON NORMALS: Soft to palpation and No hepatosplenomegaly present AUSCULTATION: Yes normoactive bowel sounds PALPATION: Yes Soft to palpation, No Tenderness to palpation present (GI), No Guarding due to palpation present (GI) and Yes No hepatosplenomegaly present Extremity: COMMON NORMALS: normal to inspection, capillary refill normal, no clubbing, cyanosis or edema, no calf tenderness and no pedal edema Neuro: SENSORIUM/ORIENTATION: Yes oriented to person, Yes oriented to place and Yes oriented to time Skin: COMMON NORMALS: no rashes or lesions noted GENERAL SKIN EXAM: no rashes or lesions noted Course Vital Signs: Vital signs: Vital Signs Temperature 99.1 F 06/28/23 11:39 Pulse Rate 99 06/28/23 12:59 Respiratory Rate 16 06/28/23 12:19 Blood Pressure 143/95 06/28/23 12:59 Pulse Oximetry 95 06/28/23 12:59 Oxygen Delivery Me thod Room Air 06/28/23 12:59 MDM - SOB/Dyspnea Medical Decision Making Labs and imaging reviewed no acute infiltrates white count normal. Significant improvement after nebulizer. Patient has nebulizer at home, encouraged to use every 4 hours while awake. Start oral prednisone tomorrow doxycycline 100 twice daily for 7 days recheck if not improving or worsens. Medical Records I reviewed the patient's medical records. Lab Data I reviewed the patient's lab results. 06/28/23 12:00 06/28/23 12:00 Labs/Radiology: Radiology Impressions Chest X-Ray 06/28/23 11:39 IMPRESSION: No acute findings. Laboratory Results WBC 6.3 10^3/uL (4.0-10.0) 06/28/23 12:00 RBC 5.07 10^6/uL (4.1-5.3) 06/28/23 12:00 Hgb 14.7 g/dL (11.5-15.3) 06/28/23 12:00 Hct 43.2 % (37.0-47.0) 06/28/23 12:00 MCV 85.2 fl (81-99) 06/28/23 12:00 MCH 29.0 pg (28.0-34.0) 06/28/23 12:00 MCHC 34.0 g/dL (30.0-36.0) 06/28/23 12:00 RDW 12.2 % (12.1-15.1) 06/28/23 12:00 Plt Count 301 10^3/cmm (130-400) 06/28/23 12:00 MPV 9.4 fL (7.4-10.4) 06/28/23 12:00 Neut % (Auto) 64.8 % 06/28/23 12:00 Lymph % (Auto) 18.9 % 06/28/23 12:00 Kaufman % (Auto) 7.3 % 06/28/23 12:00 Eos % (Auto) 8.1 % 06/28/23 12:00 Baso % (Auto) 0.6 % 06/28/23 12:00 Neut # (Auto) 4.09 10^3/uL (1.8-7.7) 06/28/23 12:00 Lymph # (Auto) 1.2 10^3/uL (0.8-4.8) 06/28/23 12:00 Kaufman # (Auto) 0.5 10^3/uL (0.2-0.9) 06/28/23 12:00 Eos # (Auto) 0.5 10^3/uL (0.0-0.8) 06/28/23 12:00 Baso # (Auto) 0.0 10^3/uL (0.0-0.1) 06/28/23 12:00 Nucleated RBC % (auto) 0 % 06/28/23 12:00 Nucleated RBCs # 0.0 /100WBC 06/28/23 12:00 Sodium 141 mmol/L (136-145) 06/28/23 12:00 Potassium 4.1 mmol/L (3.5-5.1) 06/28/23 12:00 Chloride 108 mmol/L (98-107) H 06/28/23 12:00 Carbon Dioxide 21 mmol/L (22-29) L 06/28/23 12:00 Anion Gap 16.1 (5-19) 06/28/23 12:00 BUN 7 mg/dL (6-20) 06/28/23 12:00 Creatinine 0.8 mg/dL (0.5-0.9) 06/28/23 12:00 GFR Calculation 90.5 mL/min (90-130) 06/28/23 12:00 Glucose 96 mg/dL (65-115) 06/28/23 12:00 Calculated Osmolality 290 mOsm/kg (285-295) 06/28/23 12:00 Calcium 9.3 mg/dL (8.5-10.5) 06/28/23 12:00 Discharge Plan Discharge Patient Disposition: Home Clinical Impression: Asthma with exacerbation Condition: Stable Prescriptions: New doxycycline hyclate 100 mg capsule 100 mg PO BID 10 Days Qty: 20 0RF Medrol (Norbert) 4 mg tablets,dose pack See Rx Instructions .ROUTE .COMPLEX Qty: 21 0RF Rx Instructions: orally per package directions No Action azelastine 137 mcg (0.1 %) aerosol,spray 2 spray intranasal DAILY Rx Instructions: administer into each nostril can use twice daily prn trazodone 50 mg tablet 50 mg PO BEDTIME PRN (Reason: Sleep) Rx Instructions: may take 2 tabs prn metoclopramide HCl 10 mg tablet,disintegrating 10 mg PO Q6H Qty: 20 0RF Trelegy Ellipta 100-62.5-25 mcg blister with device 1 inh inhalation DAILY medroxyprogesterone [Depo-Provera] 150 mg/mL suspension 150 mg IM .EVERY 90 DAYS Qty: 1 4RF docusate sodium 100 mg capsule 100 mg PO QDAY Qty: 10 0RF Rx Instructions: Instill contents of 1-2 caps in each ear canal; wait 10 mins; irrigate with peroxide albuterol sulfate 2.5 mg /3 mL (0.083 %) solution for nebulization 2.5 mg inhalation Q4H PRN (Reason: shortness of breath or wheezing) Qty: 180 3RF famotidine 40 mg tablet 40 mg PO DAILY Aimovig Autoinjector 140 mg/mL auto-injector 140 mg SUBCUT .monthly diazepam 10 mg tablet 10 mg PO BID PRN diphenhydramine HCl [Allergy (diphenhydramine)] 25 mg capsule 25 mg PO Q8H PRN nortriptyline 50 mg capsule 50 mg PO .hs pantoprazole 40 mg tablet,delayed release (DR/EC) 40 mg PO DAILY Tezspire 210 mg/1.91 mL (110 mg/mL) pen injector 210 mg SUBCUT .monthly albuterol sulfate [ProAir HFA] 90 mcg/actuation HFA aerosol inhaler 2 puff inhalation Q4H PRN (Reason: shortness of breath or wheezing) Qty: 8.5 3RF ibuprofen 600 mg tablet See Rx Instructions .ROUTE .COMPLEX Qty: 60 0RF Hold Instructions: Doctor's Order Dose Instruction: TAKE 1 TABLET BY MOUTH EVERY 8 HOURS NEEDED FOR PAIN Rx Instructions: TAKE 1 TABLET BY MOUTH EVERY 8 HOURS NEEDED FOR PAIN Nurtec ODT 75 mg tablet,disintegrating PO ONCE ondansetron 4 mg tablet,disintegrating 4 mg PO DAILY PRN (Reason: nausea and vomiting) Qty: 2 0RF montelukast 10 mg tablet 10 mg PO BEDTIME Qty: 30 2RF epinephrine 0.3 mg/0.3 mL auto-injector 0.3 mg IM ONCE PRN (Reason: allergic reaction) Qty: 2 1RF Tylenol Extra Strength 500 mg Tablet 500 - 1,000 mg PO PRN topiramate 50 mg Tablet 100 mg PO BID Flonase Allergy Relief 50 mcg/actuation spray,suspension 1 spray INTRANASAL DAILY Rx Instructions: administer into each nostril ipratropium-albuterol 0.5 mg-3 mg(2.5 mg base)/3 mL solution for nebulization 3 ml inhalation Q6H PRN (Reason: shortness of breath or wheezing) Qty: 90 0RF multivitamin Tablet 1 tab PO DAILY cetirizine 10 mg Tablet 20 mg PO QAM guanfacine 1 mg Tablet 1 mg PO BEDTIME hydroxyzine HCl 25 mg Tablet 25 mg PO Q6H PRN (Reason: Itching) levetiracetam [Keppra XR] 500 mg tablet extended release 24 hr 2,500 mg PO BEDTIME Discharge Orders: Discharge ED (Routine); Ordered 06/28/23 Ordered By: Henry Ritchie Referrals: Jorge Nicholas MD [Primary Care Provider] - Discharge Diet: Usual diet Discharge Activity: Increase activity as tolerated Patient Instructions: Opioid Safety, Pain Management Activity Restrictions/Additional Instructions: Use albuterol regularly while awake for the next 2 to 3 days and then as needed. Start oral steroids tomorrow start oral doxycycline today. If symptoms worsen or not improving recheck. Coding Level of Care Code ED Allied Health Professional for Konstantin Pedersen
[2023-06-28] MEDS: dexamethasone 10 mg/mL INJ IVP (11:56)
[2023-06-28] MEDS: ipratropium-albuterol 3 mL Neb INHALATION (12:18)
[2023-06-28 12:19] VITALS: PULSE 95; RESP 16; O2SAT 96
[2023-06-28 12:19] LABS: Basophils % 0.6 %; Eosinophils # 0.5 10^3/uL (0.0-0.8); Eosinophils % 8.1 %; Hematocrit 43.2 % (37.0-47.0); Hemoglobin 14.7 g/dL (11.5-15.3); Lymphocytes # 1.2 10^3/uL (0.8-4.8); Lymphocytes % 18.9 %; Mean Corpuscular Volume 85.2 fl (81-99); Mean Platelet Volume 9.4 fL (7.4-10.4); Monocytes # 0.5 10^3/uL (0.2-0.9); Monocytes % 7.3 %; Neutrophils # 4.09 10^3/uL (1.8-7.7); Neutrophils % 64.8 %; Nucleated Red Blood Cells % 0 %; Platelet Count 301 10^3/cmm (130-400); Red Blood Count 5.07 10^6/uL (4.1-5.3); Red Cell Distribution Width 12.2 % (12.1-15.1); White Blood Count 6.3 10^3/uL (4.0-10.0)
[2023-06-28 12:22] VITALS: PULSE 100
[2023-06-28 12:42] LABS: Anion Gap 16.1 (5-19); Blood Urea Nitrogen 7 mg/dL (6-20); Calcium 9.3 mg/dL (8.5-10.5); Carbon Dioxide 21 mmol/L (22-29); Chloride 108 mmol/L (98-107); Creatinine Clr Calc Pharmacy 106.1225; Glomerular Filtration Rate 90.5 mL/min (90-130); Glucose 96 mg/dL (65-115); Osmolality Calculated 290 mOsm/kg (285-295); Potassium 4.1 mmol/L (3.5-5.1); Sodium 141 mmol/L (136-145)
[2023-06-28 12:59] VITALS: BP 143/95; PULSE 99; O2SAT 95
== END 2023-06-28 13:11 | disposition home or self-care (01) ==
PROVIDERS: Emergency Provider Family Medicine; PCP Family Medicine
DX: J45.901 Unspecified asthma with (acute) exacerbation (principal)
CPT/HCPCS: 71045; 80048; 85025; 94640; 96374; 99284; J1100

== ENCOUNTER → 2023-07-09 15:30 | Outpatient (BNVA) | payer MEDICAID, SELFPAY | PROVIDERS: PCP Pediatrics Adolescent Medicine; Visit Provider Nurse Practitioner Women's Health | DX: Z12.4 Encounter for screening for malignant neoplasm of cervix (principal) | CPT/HCPCS: 88175 ==

== ENCOUNTER 2023-07-17 21:32 | Emergency (ER) | payer MEDICAID, SELFPAY ==
[2023-07-17 21:37] VITALS: BP 136/92; PULSE 131; RESP 18; TEMP 37.7; O2SAT 98; BMI 34.0
--- NOTE | 2023-07-17 21:52 | ED_ITS ---
HPI - Headache General: Chief Complaint: Headache Stated Complaint: migraine Time Seen by Provider: 07/17/23 21:38 Source: patient Mode of arrival: ambulatory Limitations: no limitations History of Present Illness: 23-year-old female states that she has a long history of migraines states she has had intermittent migraine headache over the last 5 days. States headaches currently an 8 out of 10 she has photophobia and phonophobia she denies any neck pain states this feels just like her previous migraines. 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 Managed by her neurologist in [facility], sees q 6 months. On Keppra, Topamax, prn valium. History of anaphylaxis Multiple foods and other exposures. 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 On Fasenra in addition to other medications. Migraine with vision changes. Moderate persistent asthma Diagnosed at the age of 4. Denies any intubations for asthma. 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 Severe allergy Severe persistent asthma Tourette's on guanfacine Surgical History H/O shoulder surgery (~2017) right torn rotator cuff History of esophagogastroduodenoscopy (EGD) (~04/2020) eosinophilic microabscesses Family History Grandmother Heart disease Maternal great grandmother Diabetes Maternal great grandmother Hyperlipidemia maternal great grandmother Hypertension maternal great grandmother Thyroid condition maternal Endometriosis maternal Family/Other Ovarian cancer great aunt Hypertension maternal great aunt, maternal great uncle Multiple myeloma maternal uncle Mother Thyroid condition Other Dementia Lung disease Denies family history of Colon cancer DVT (deep venous thrombosis) CAD (coronary artery disease) Clotting disorder Psychiatric illness Chronic kidney disease (CKD) Breast cancer Anesthesia complication Bleeding disorder Pulmonary embolism Uterine cancer Stroke Social History Smoking and tobacco status: never smoked Alcohol intake: current Alcohol intake frequency: holidays/special occasions only Substance/Drug Use: never Lives independently: Yes Marital status: Single Highest education level completed: High School Graduate Education level details: currently in college Current 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 status: disabled Pets and animals: Yes (service animal) Pets & animals: dog(s) Special cooper needs: No Agree to transfusion: Yes Female Reproductive History: Spontaneous abortions: No Physical Exam Const: COMMON NORMALS: no acute distress, patient oriented x3 and healthy appearing HENMT: COMMON NORMALS: normocephalic and atraumatic HEAD & SCALP: normocephalic and atraumatic Eye: COMMON NORMALS: conjunctivae normal CONJUNCTIVA: Yes conjunctivae normal Neck/C-Spine: COMMON NORMALS: no meningeal signs Chest: COMMONS NORMALS: normal inspection of the chest Resp: COMMON NORMALS: normal respiratory effort Cardio: COMMON NORMALS: regular rate, regular rhythm and No murmurs present (Cardio) RATE: regular rate RHYTHM: regular rhythm GI: INSPECTION: Yes normal to inspection Extremity: COMMON NORMALS: normal to inspection and full ROM Neuro: COMMON NORMALS: patient oriented x3, moves all extremities and no focal motor deficits MENINGEAL SIGNS: Yes no meningeal signs Psych: COMMON NORMALS: mental status grossly normal, Normal thought process present and cooperative THOUGHT PROCESS: Normal thought process present Skin: COMMON NORMALS: no rashes or lesions noted and no wounds GENERAL SKIN EXAM: no rashes or lesions noted Course Vital Signs: Vital signs: Vital Signs Temperature 99.9 F H 07/17/23 21:37 Pulse Rate 131 H 07/17/23 21:37 Respiratory Rate 18 07/17/23 21:37 Blood Pressure 136/92 07/17/23 21:37 Pulse Oximetry 98 07/17/23 21:37 MDM - Headache Medical Decision Making Patient presents here with a migraine headache she feels much improved here after meds heart rates improved as well she has no neck stiffness no signs of meningitis she is stable for discharge she is to follow-up with PCP and return if worsening she understands agrees to plan. Medical Records I reviewed the patient's medical records. Lab Data I reviewed the patient's lab results. Discharge Plan Discharge Patient Disposition: Home Clinical Impression: Migraine Condition: Stable Prescriptions: No Action azelastine 137 mcg (0.1 %) aerosol,spray 2 spray intranasal DAILY Rx Instructions: administer into each nostril can use twice daily prn trazodone 50 mg tablet 50 mg PO BEDTIME PRN (Reason: Sleep) Rx Instructions: may take 2 tabs prn metoclopramide HCl 10 mg tablet,disintegrating 10 mg PO Q6H Qty: 20 0RF Trelegy Ellipta 100-62.5-25 mcg blister with device 1 inh inhalation DAILY medroxyprogesterone [Depo-Provera] 150 mg/mL suspension 150 mg IM .EVERY 90 DAYS Qty: 1 4RF docusate sodium 100 mg capsule 100 mg PO QDAY Qty: 10 0RF Rx Instructions: Instill contents of 1-2 caps in each ear canal; wait 10 mins; irrigate with peroxide albuterol sulfate 2.5 mg /3 mL (0.083 %) solution for nebulization 2.5 mg inhalation Q4H PRN (Reason: shortness of breath or wheezing) Qty: 180 3RF famotidine 40 mg tablet 40 mg PO DAILY Aimovig Autoinjector 140 mg/mL auto-injector 140 mg SUBCUT .monthly diazepam 10 mg tablet 10 mg PO BID PRN diphenhydramine HCl [Allergy (diphenhydramine)] 25 mg capsule 25 mg PO Q8H PRN nortriptyline 50 mg capsule 50 mg PO .hs pantoprazole 40 mg tablet,delayed release (DR/EC) 40 mg PO DAILY Tezspire 210 mg/1.91 mL (110 mg/mL) pen injector 210 mg SUBCUT .monthly albuterol sulfate [ProAir HFA] 90 mcg/actuation HFA aerosol inhaler 2 puff inhalation Q4H PRN (Reason: shortness of breath or wheezing) Qty: 8.5 3RF ibuprofen 600 mg tablet See Rx Instructions .ROUTE .COMPLEX Qty: 60 0RF Hold Instructions: Doctor's Order Dose Instruction: TAKE 1 TABLET BY MOUTH EVERY 8 HOURS NEEDED FOR PAIN Rx Instructions: TAKE 1 TABLET BY MOUTH EVERY 8 HOURS NEEDED FOR PAIN Nurtec ODT 75 mg tablet,disintegrating PO ONCE ondansetron 4 mg tablet,disintegrating 4 mg PO DAILY PRN (Reason: nausea and vomiting) Qty: 2 0RF montelukast 10 mg tablet 10 mg PO BEDTIME Qty: 30 2RF epinephrine 0.3 mg/0.3 mL auto-injector 0.3 mg IM ONCE PRN (Reason: allergic reaction) Qty: 2 1RF Tylenol Extra Strength 500 mg Tablet 500 - 1,000 mg PO PRN topiramate 50 mg Tablet 100 mg PO BID Flonase Allergy Relief 50 mcg/actuation spray,suspension 1 spray INTRANASAL DAILY Rx Instructions: administer into each nostril ipratropium-albuterol 0.5 mg-3 mg(2.5 mg base)/3 mL solution for nebulization 3 ml inhalation Q6H PRN (Reason: shortness of breath or wheezing) Qty: 90 0RF multivitamin Tablet 1 tab PO DAILY cetirizine 10 mg Tablet 20 mg PO QAM guanfacine 1 mg Tablet 1 mg PO BEDTIME hydroxyzine HCl 25 mg Tablet 25 mg PO Q6H PRN (Reason: Itching) levetiracetam [Keppra XR] 500 mg tablet extended release 24 hr 2,500 mg PO BEDTIME Medrol (Norbert) 4 mg tablets,dose pack See Rx Instructions .ROUTE .COMPLEX Qty: 21 0RF Rx Instructions: orally per package directions Discharge Orders: Discharge ED (Routine); Ordered 07/17/23 Ordered By: Efraín Horner Referrals: Jorge Nicholas MD [Primary Care Provider] - 1-3 days Discharge Diet: Advance as tolerated Discharge Activity: Resume usual activity Patient Instructions: Migraine Headache (ED) Coding Level of Care Code ED Supervisor Graphite for Konstantin Pedersen
[2023-07-17 22:15] VITALS: PULSE 108; RESP 14; O2SAT 95
[2023-07-17 22:21] VITALS: BP 115/75
[2023-07-17] MEDS: acetaminophen 500 mg Tablet 1000 MG PO (22:22)
[2023-07-17] MEDS: sodium chloride 0.9% 1,000 ML 999 ML IV (22:23)
[2023-07-17] MEDS: ketorolac 30 mg/mL INJ 15 MG IVP (22:25)
[2023-07-17] MEDS: metoclopramide 5 mg/mL SDV 2 mL 10 MG IVP (22:28)
[2023-07-17 22:30] VITALS: BP 129/83; PULSE 105; RESP 19; O2SAT 97
[2023-07-17] MEDS: diphenhydrAMINE 50 mg/mL SDV 1mL IVP (22:35)
[2023-07-17 23:00] VITALS: BP 108/77; PULSE 96; RESP 17; O2SAT 96
[2023-07-17 23:30] VITALS: BP 111/67; PULSE 92; RESP 19; O2SAT 96
== END 2023-07-17 23:48 | disposition home or self-care (01) ==
PROVIDERS: Emergency Provider Emergency Medicine; PCP Family Medicine
DX: G43.909 Migraine, unspecified, not intractable, without status migrainosus (principal); F95.2 Tourette's disorder
CPT/HCPCS: 96361; 96374; 96375; 99284; J1200; J1885; J2765; J7030

== ENCOUNTER 2023-09-11 15:28 | Emergency (ER) | payer MEDICAID, SELFPAY ==
[2023-09-11 15:33] VITALS: BP 134/89; PULSE 122; RESP 15; TEMP 36.8; O2SAT 96; BMI 34.0
--- NOTE | 2023-09-11 16:30 | W.ED.GENADLT ---
HPI - General Adult General: Chief complaint: General Medical Stated complaint: blood in stool Time Seen by Provider: 09/11/23 15:44 Source: patient Mode of arrival: ambulatory Limitations: no limitations History of Present Illness: Patient presents to the emergency department today for evaluation treatment of concerns with blood with bowel movements. Patient reports that yesterday she had used the bathroom and indicated she had been having some irritation in the vulvovaginal region so was using a wipe to clean herself. She states there was some blood on the wipe. She states that overnight she had no bleeding in her underwear but had a bowel movement today and again, had blood while wiping. Patient reports some abdominal cramps was not had vomiting. She denies any previous histories of hemorrhoids or fissures. She denies feeling like she strains to have bowel movements or dealing with constipation. Patient is on the Depo shot and does not get her monthly cycles. She denies dysuria. Patient has a significant history of multiple allergies with anaphylaxis. She also has a history of seizures. She deals with migraines and asthma. 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 Managed by her neurologist in [facility], sees q 6 months. On Keppra, Topamax, prn valium. History of anaphylaxis Multiple foods and other exposures. 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 On Fasenra in addition to other medications. Migraine with vision changes. Moderate persistent asthma Diagnosed at the age of 4. Denies any intubations for asthma. 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 Severe allergy Severe persistent asthma Tourette's on guanfacine Surgical History H/O shoulder surgery (~2017) right torn rotator cuff History of esophagogastroduodenoscopy (EGD) (~04/2020) eosinophilic microabscesses Family History Grandmother Heart disease Maternal great grandmother Diabetes Maternal great grandmother Hyperlipidemia maternal great grandmother Hypertension maternal great grandmother Thyroid disease maternal Endometriosis maternal Family/Other Ovarian cancer great aunt Hypertension maternal great aunt, maternal great uncle Multiple myeloma maternal uncle Mother Thyroid disease Other Dementia Lung disease Denies family history of Colon cancer DVT (deep venous thrombosis) CAD (coronary artery disease) Clotting disorder Psychiatric illness Chronic kidney disease (CKD) Breast cancer Anesthesia complication Bleeding disorder Pulmonary embolism Uterine cancer Stroke Social History Smoking and tobacco/nicotine status: never used tobacco/nicotine Alcohol intake: current Alcohol intake frequency: holidays/special occasions only Substance/Drug Use: never Lives independently: Yes Marital status: Single Highest education level completed: High School Graduate Education level details: currently in college Current 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 status: disabled Pets and animals: Yes (service animal) Pets & animals: dog(s) Special cooper needs: No Agree to transfusion: Yes Female Reproductive History: Spontaneous abortions: No Physical Exam Const: COMMON NORMALS: no acute distress, average body habitus, patient oriented x3 and alert HENMT: COMMON NORMALS: normocephalic, atraumatic, hearing grossly normal bilaterally and moist oral mucous membranes HEAD & SCALP: normocephalic and atraumatic Eye: COMMON NORMALS: Equal, round and reactive pupils present, EOMs intact bilaterally and conjunctivae normal CONJUNCTIVA: Yes conjunctivae normal PUPIL: Yes Equal, round and reactive pupils present Neck/C-Spine: COMMON NORMALS: no JVD Lymph: LYMPHATIC: no lymphadenopathy noted Resp: COMMON NORMALS: normal respiratory effort, No retractions and No use of accessory muscles Cardio: COMMON NORMALS: no JVD and regular rate RATE: regular rate : OTHER: Rectal examination reveals no signs of dried or fresh blood around the anus. No signs of obvious thrombosed hemorrhoid, prolapsed hemorrhoid, or skin tags. No signs of fissures. External vaginal examination reveals no signs of any active vaginal bleeding. No signs of active vaginal discharge, redness or swelling in the vulvovaginal region, rashes, or lesions noted. Extremity: COMMON NORMALS: normal to inspection, full ROM and capillary refill normal Neuro: COMMON NORMALS: patient oriented x3 SENSORIUM/ORIENTATION: Yes alert Psych: COMMON NORMALS: mental status grossly normal, cooperative, normal affect, speech normal and activity/motor behavior normal SPEECH: Yes normal speech Course Vital Signs: Vital signs: Vital Signs Temperature 98.2 F 09/11/23 15:33 Pulse Rate 122 H 09/11/23 15:33 Respiratory Rate 15 09/11/23 15:33 Blood Pressure 134/89 09/11/23 15:33 Pulse Oximetry 96 09/11/23 15:33 Oxygen Delivery Me thod Room Air 09/11/23 15:33 MDM - General Adult Medical Decision Making Patient's lab work today reveals no signs of any acute anemia concerning for acute blood loss. Patient did not have a bowel movement while she was here and no fecal occult blood testing was able to be performed. Patient is rectal and vaginal examination revealed no acute concerns visible externally. CT imaging revealed no acute concerns as well. No signs of bowel inflammation or diverticulitis. I did discuss the work-up with Dr. Horner. He agrees at this time, could likely be an internal hemorrhoid. However, as it is not prolapsed and patient is not having any bleeding currently, would recommend a follow-up appoint with primary care. Patient is given a prescription for Proctosol to help should she have another bowel movement with similar symptoms. Discussed with her the importance of following up with primary care as she may require evaluation by proctology or general surgery to discuss an anoscope should she have recurrence of symptoms. Return precautions provided. Patient verbalized understanding and agreement to treatment plan. Differential Diagnosis DDx: GI bleed, anal fissure, external hemorrhoid, internal hemorrhoid, vaginal bleeding Lab Data 09/11/23 17:03 09/11/23 17:03 Radiology Impressions Abdomen/Pelvis CT 09/11/23 18:40 IMPRESSION: 1. No bowel obstruction or inflammatory process associated with the bowel. 2. No free air or significant free fluid in the abdomen or pelvis. 3. The appendix images normally. Laboratory Results WBC 7.43 10^3/uL (3.29-11.43) 09/11/23 17:03 RBC 5.56 10^6/uL (3.85-5.65) 09/11/23 17:03 Hgb 16.10 g/dL (11.27-16.99) 09/11/23 17:03 Hct 46.4 % (36-47) 09/11/23 17:03 MCV 83.5 fl (85-98) L 09/11/23 17:03 MCH 29.0 pg (27-33) 09/11/23 17:03 MCHC 34.7 g/dL (30-55) 09/11/23 17:03 RDW 11.9 % (12.1-15.1) L 09/11/23 17:03 Plt Count 316 10^3/cmm (157-399) 09/11/23 17:03 MPV 9.3 fL (7.4-10.4) 09/11/23 17:03 Neut % (Auto) 42.5 % 09/11/23 17:03 Lymph % (Auto) 39.8 % 09/11/23 17:03 [place] % (Auto) 5.9 % 09/11/23 17:03 Eos % (Auto) 10.9 % 09/11/23 17:03 Baso % (Auto) 0.8 % 09/11/23 17:03 Neut # (Auto) 3.15 10^3/uL (1.8-7.7) 09/11/23 17:03 Lymph # (Auto) 3.0 10^3/uL (0.8-4.8) 09/11/23 17:03 [place] # (Auto) 0.4 10^3/uL (0.2-0.9) 09/11/23 17:03 Eos # (Auto) 0.8 10^3/uL (0.0-0.8) 09/11/23 17:03 Baso # (Auto) 0.1 10^3/uL (0.0-0.1) 09/11/23 17:03 Nucleated RBC % (auto) 0 % 09/11/23 17:03 Nucleated RBCs # 0.0 /100WBC 09/11/23 17:03 Sodium 139 mmol/L (136-145) 09/11/23 17:03 Potassium 3.9 mmol/L (3.5-5.1) 09/11/23 17:03 Chloride 106 mmol/L (98-107) 09/11/23 17:03 Carbon Dioxide 23 mmol/L (22-29) 09/11/23 17:03 Anion Gap 13.9 (5-19) 09/11/23 17:03 BUN 8 mg/dL (6-20) 09/11/23 17:03 Creatinine 1.0 mg/dL (0.5-0.9) H 09/11/23 17:03 GFR Calculation 70.0 mL/min (90-130) L 09/11/23 17:03 Glucose 97 mg/dL (65-115) 09/11/23 17:03 Calculated Osmolality 286 mOsm/kg (285-295) 09/11/23 17:03 Calcium 9.3 mg/dL (8.5-10.5) 09/11/23 17:03 Total Bilirubin 0.3 mg/dL (0.15-1.2) 09/11/23 17:03 AST 25 U/L (0-32) 09/11/23 17:03 ALT 42 U/L (0-33) H 09/11/23 17:03 Alkaline Phosphatase 87 U/L (35-105) 09/11/23 17:03 Total Protein 7.1 g/dL (6.6-8.7) 09/11/23 17:03 Albumin 4.4 g/dL (3.5-5.2) 09/11/23 17:03 Globulin 2.7 g/dL (1.3-4.6) 09/11/23 17:03 HCG, Qual Negative (Negative) 09/11/23 18:07 Urine Color Yellow (Yellow) 09/11/23 18:07 Urine Appearance Clear (CLEAR) 09/11/23 18:07 Urine pH 5 (5-7) 09/11/23 18:07 Ur Specific [place] 1.020 (1.005-1.030) 09/11/23 18:07 Urine Protein Neg (Negative) 09/11/23 18:07 Urine Glucose (UA) Norm (Normal) 09/11/23 18:07 Urine Ketones Negative (Negative) 09/11/23 18:07 Urine Blood Neg (Negative) 09/11/23 18:07 Urine Nitrate Negative (Negative) 09/11/23 18:07 Urine Bilirubin Neg (Negative) 09/11/23 18:07 Urine Urobilinogen Norm mg/dL (Negative) 09/11/23 18:07 Ur Leukocyte Esterase Negative (Negative) 09/11/23 18:07 All radiology interpretation(s) finalized by discharge Discharge Plan Discharge Patient Disposition: Home Clinical Impression: Internal hemorrhoid Condition: Stable Prescriptions: New Proctosol HC 2.5 % cream with perineal applicator 1 applic [place] BID PRN (Reason: hemorrhoids) Qty: 30 0RF No Action azelastine 137 mcg (0.1 %) aerosol,spray 2 spray intranasal DAILY Rx Instructions: administer into each nostril can use twice daily prn trazodone 50 mg tablet 50 mg PO BEDTIME PRN (Reason: Sleep) Rx Instructions: may take 2 tabs prn metoclopramide HCl 10 mg tablet,disintegrating 10 mg PO Q6H Qty: 20 0RF Trelegy Ellipta 100-62.5-25 mcg blister with device 1 inh inhalation DAILY medroxyprogesterone [Depo-Provera] 150 mg/mL suspension 150 mg IM .EVERY 90 DAYS Qty: 1 4RF docusate sodium 100 mg capsule 100 mg PO QDAY Qty: 10 0RF Rx Instructions: Instill contents of 1-2 caps in each ear canal; wait 10 mins; irrigate with peroxide albuterol sulfate 2.5 mg /3 mL (0.083 %) solution for nebulization 2.5 mg inhalation Q4H PRN (Reason: shortness of breath or wheezing) Qty: 180 3RF famotidine 40 mg tablet 40 mg PO DAILY Aimovig Autoinjector 140 mg/mL auto-injector 140 mg SUBCUT .monthly diazepam 10 mg tablet 10 mg PO BID PRN diphenhydramine HCl [Allergy (diphenhydramine)] 25 mg capsule 25 mg PO Q8H PRN nortriptyline 50 mg capsule 50 mg PO .hs pantoprazole 40 mg tablet,delayed release (DR/EC) 40 mg PO DAILY Tezspire 210 mg/1.91 mL (110 mg/mL) pen injector 210 mg SUBCUT .monthly albuterol sulfate [ProAir HFA] 90 mcg/actuation HFA aerosol inhaler 2 puff inhalation Q4H PRN (Reason: shortness of breath or wheezing) Qty: 8.5 3RF ibuprofen 600 mg tablet See Rx Instructions .ROUTE .COMPLEX Qty: 60 0RF Hold Instructions: Doctor's Order Dose Instruction: TAKE 1 TABLET BY MOUTH EVERY 8 HOURS NEEDED FOR PAIN Rx Instructions: TAKE 1 TABLET BY MOUTH EVERY 8 HOURS NEEDED FOR PAIN Nurtec ODT 75 mg tablet,disintegrating PO ONCE ondansetron 4 mg tablet,disintegrating 4 mg PO DAILY PRN (Reason: nausea and vomiting) Qty: 2 0RF montelukast 10 mg tablet 10 mg PO BEDTIME Qty: 30 2RF epinephrine 0.3 mg/0.3 mL auto-injector 0.3 mg IM ONCE PRN (Reason: allergic reaction) Qty: 2 1RF Tylenol Extra Strength 500 mg Tablet 500 - 1,000 mg PO PRN topiramate 50 mg Tablet 100 mg PO BID Flonase Allergy Relief 50 mcg/actuation spray,suspension 1 spray INTRANASAL DAILY Rx Instructions: administer into each nostril ipratropium-albuterol 0.5 mg-3 mg(2.5 mg base)/3 mL solution for nebulization 3 ml inhalation Q6H PRN (Reason: shortness of breath or wheezing) Qty: 90 0RF multivitamin Tablet 1 tab PO DAILY cetirizine 10 mg Tablet 20 mg PO QAM guanfacine 1 mg Tablet 1 mg PO BEDTIME hydroxyzine HCl 25 mg Tablet 25 mg PO Q6H PRN (Reason: Itching) levetiracetam [Keppra XR] 500 mg tablet extended release 24 hr 2,500 mg PO BEDTIME Medrol (Norbert) 4 mg tablets,dose pack See Rx Instructions .ROUTE .COMPLEX Qty: 21 0RF Rx Instructions: orally per package directions Discharge Orders: Discharge ED (Routine); Ordered 09/11/23 Ordered By: Dora Mcknight Referrals: Jorge Nicholas MD [Primary Care Provider] - Discharge Diet: Usual diet Discharge Activity: Increase activity as tolerated Patient Instructions: Hemorrhoids (ED) Activity Restrictions/Additional Instructions: Based on the description of your bleeding, physical examination, and lab/imaging evaluation here in the emergency department, you most likely have what is called an internal hemorrhoid. These often cause rectal bleeding which is painless and is often times associated with bowel movements. I am providing you some medication which can help should you continue having symptoms but request you follow-up with your primary care provider next week for general recheck. If these become more bothersome or poke out from the anal opening, you may benefit from an evaluation from general surgery who can do an anoscope to evaluate further. However, if you develop profuse bleeding from your rectum-with or without stool, develop black or tarry stools, have severe change in abdominal pains, run fever, or develop dizziness or passing out need to return to the ER. Coding Level of Care Code ED Circulation Man for Konstantin Pedersen
[2023-09-11 17:13] LABS: Basophils # 0.1 10^3/uL (0.0-0.1); Basophils % 0.8 %; Eosinophils # 0.8 10^3/uL (0.0-0.8); Eosinophils % 10.9 %; Hematocrit 46.4 % (36-47); Lymphocytes % 39.8 %; Mean Corpuscular HGB Conc 34.7 g/dL (30-55); Mean Corpuscular Volume 83.5 fl (85-98); Mean Platelet Volume 9.3 fL (7.4-10.4); Monocytes # 0.4 10^3/uL (0.2-0.9); Monocytes % 5.9 %; Neutrophils # 3.15 10^3/uL (1.8-7.7); Neutrophils % 42.5 %; Nucleated Red Blood Cells % 0 %; Platelet Count 316 10^3/cmm (157-399); Red Blood Count 5.56 10^6/uL (3.85-5.65); Red Cell Distribution Width 11.9 % (12.1-15.1); White Blood Count 7.43 10^3/uL (3.29-11.43)
[2023-09-11 17:39] LABS: Alanine Aminotransferase 42 U/L (0-33); Albumin Level 4.4 g/dL (3.5-5.2); Alkaline Phosphatase 87 U/L (35-105); Anion Gap 13.9 (5-19); Aspartate Amino Transferase 25 U/L (0-32); Blood Urea Nitrogen 8 mg/dL (6-20); Calcium 9.3 mg/dL (8.5-10.5); Carbon Dioxide 23 mmol/L (22-29); Chloride 106 mmol/L (98-107); Globulin 2.7 g/dL (1.3-4.6); Glucose 97 mg/dL (65-115); Osmolality Calculated 286 mOsm/kg (285-295); Potassium 3.9 mmol/L (3.5-5.1); Sodium 139 mmol/L (136-145); Total Bilirubin 0.3 mg/dL (0.15-1.2); Total Protein 7.1 g/dL (6.6-8.7)
[2023-09-11] MEDS: acetaminophen 325 mg Tablet 650 MG PO (17:52)
[2023-09-11 18:12] LABS: Add Urine Microscopic? NO; Charge for UA Resulting for Rev
[2023-09-11 18:19] LABS: HCG Qualitative Urine. Negative (Negative)
[2023-09-11 18:29] LABS: Bilirubin Urine Neg (Negative); Blood Urine Neg (Negative); Glucose Urine UA Norm (Normal); Ketones Urine Negative (Negative); Leukocyte Esterase Urine Negative (Negative); Nitrate Urine Negative (Negative); Protein Urine Neg (Negative); Urine Appearance Clear (CLEAR); Urine Color Yellow (Yellow); Urobilinogen Urine Norm (Negative); pH Urine 5 (5-7)
--- NOTE | 2023-09-11 18:40 | CTR_ITS ---
PROCEDURE INFORMATION: Exam: CT Abdomen And Pelvis Without Contrast Exam date and time: 09/11/2023 7:11 PM Age: 23 years old Clinical indication: Abdominal pain; Generalized; Additional info: Low abd pain, reports blood in stool, low abdominal pain TECHNIQUE: Imaging protocol: Computed tomography of the abdomen and pelvis without contrast. Radiation optimization: All CT scans at this facility use at least one of these dose optimization techniques: automated exposure control; mA and/or kV adjustment per patient size (includes targeted exams where dose is matched to clinical indication); or iterative reconstruction. REPORTING DATA: Count of CT and Cardiac NM exams in prior 12 months: This patient has received 0 known CTs and 0 known cardiac nuclear medicine studies in the 12 months prior to the current study. COMPARISON: ES surgery / GI images 12/10/2017 4:41 AM RADIATION DOSE METRICS: Total DLP (mGy-cm): 669 FINDINGS: Liver: Normal. No mass. Gallbladder and bile ducts: Normal. No calcified stones. No ductal dilation. Pancreas: Normal. No ductal dilation. Spleen: Normal. No splenomegaly. Adrenal glands: Normal. No mass. Kidneys and ureters: Normal. No hydronephrosis. Stomach and bowel: Unremarkable. No obstruction. No mucosal thickening. Appendix: No evidence of appendicitis. Intraperitoneal space: Unremarkable. No free air. No significant fluid collection. Vasculature: Unremarkable. No abdominal aortic aneurysm. Lymph nodes: Unremarkable. No enlarged lymph nodes. Urinary bladder: Unremarkable as visualized. Reproductive: Unremarkable as visualized. Bones/joints: Unremarkable. No acute fracture. Soft tissues: Unremarkable. CT/CT abdomen pelvis wo con [id number] IMPRESSION: 1. No bowel obstruction or inflammatory process associated with the bowel. 2. No free air or significant free fluid in the abdomen or pelvis. 3. The appendix images normally.
== END 2023-09-11 19:59 | disposition home or self-care (01) ==
PROVIDERS: Emergency Provider Physician Assistant; PCP Family Medicine
DX: K64.8 Other hemorrhoids (principal)
CPT/HCPCS: 36415; 74176; 80053; 81003; 81025; 85025; 99284

== ENCOUNTER 2023-12-04 23:18 | Emergency (ER) | payer MEDICAID, SELFPAY ==
[2023-12-04 23:20] VITALS: BP 142/82; PULSE 133; RESP 28; TEMP 36.6; O2SAT 92
--- NOTE | 2023-12-04 23:23 | XRR_ITS ---
PROCEDURE INFORMATION: Exam: XR Chest Exam date and time: 12/04/2023 11:39 PM Age: 23 years old Clinical indication: Shortness of breath and wheezing; Patient HX: Asthma attack awhile cleaning out hamster cage TECHNIQUE: Imaging protocol: Radiologic exam of the chest. Views: 1 view. COMPARISON: CR (CHEST, ) 28/06/2023 12:26 FINDINGS: Lungs: Unremarkable. No consolidation. Pleural spaces: Unremarkable. No pleural effusion. No pneumothorax. Heart/Mediastinum: Unremarkable. No cardiomegaly. Bones/joints: Stable subchondral cysts in the right glenoid. XR/XR chest 1V portable [id number] IMPRESSION: No acute findings.
--- NOTE | 2023-12-04 23:26 | ED_ITS ---
HPI - SOB/Dyspnea 2 General: Chief Complaint: Shortness of Breath/Dyspnea Stated Complaint: asthma attack Time Seen by Provider: 12/04/23 23:20 History of Present Illness: HPI Narrative: 23-year-old female comes in today for co mplaints of shortness of breath. Patient has a history of asthma. Patient reports that about 15 minutes prior to arrival she started becoming short of breath. Patient tried her albuterol. Was worsening so she came into the ER. Review of Systems 2 General: Reports: 10 or more systems reviewed and unremarkable except in HPI and below Resp: Reports: dyspnea PFS ED 2 PFSH: Medical History (Updated 12/05/23 @ 00:51 by ARNOLD Hahn) Severe persistent asthma Severe allergy Eosinophilic gastroenteropathy Gastroenterology in [facility] -Dr. Jax Fragoso Allergy to alpha-gal Tourette's on guanfacine History of anaphylaxis Multiple foods and other exposures. 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 On Fasenra in addition to other medications. Migraine with vision changes. 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 Managed by her neurologist in [facility], sees q 6 months. On Keppra, Topamax, prn valium. Moderate persistent asthma Diagnosed at the age of 4. Denies any intubations for asthma. 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 Surgical History History of esophagogastroduodenoscopy (EGD) (~04/2020) eosinophilic microabscesses H/O shoulder surgery (~2017) right torn rotator cuff Family History Grandmother Heart disease Maternal great grandmother Diabetes Maternal great grandmother Hyperlipidemia maternal great grandmother Hypertension maternal great grandmother Thyroid disease maternal Endometriosis maternal Family/Other Ovarian cancer great aunt Hypertension maternal great aunt, maternal great uncle Multiple myeloma maternal uncle Mother Thyroid disease Other Dementia Lung disease Denies family history of Colon cancer DVT (deep venous thrombosis) CAD (coronary artery disease) Clotting disorder Psychiatric illness Chronic kidney disease (CKD) Breast cancer Anesthesia complication Bleeding disorder Pulmonary embolism Uterine cancer Stroke Social History (Updated 09/23/23 @ 11:06 by Roseanne Borrego LPN) Smoking and tobacco/nicotine status: never used tobacco/nicotine Alcohol intake: never Substance/Drug Use: never Lives independently: Yes Marital status: Single Highest education level completed: High School Graduate Education level details: currently in college Current 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 status: disabled Pets and animals: Yes (service animal) Pets & animals: dog(s) Special cooper needs: No Agree to transfusion: Yes Female Reproductive History: Spontaneous abortions: No Physical Exam 2 Const: COMMON NORMALS: alert HENMT: COMMON NORMALS: normocephalic HEAD & SCALP: normocephalic Neck/C-Spine: COMMON NORMALS: full ROM Resp: EFFORT & INSPECTION: Yes symmetric chest movement, Yes uses accessory muscles and Yes tripod positioning AUSCULTATION: wheezes inspiratory wheezes, left lower and right lower Cardio: COMMON NORMALS: regular rate and regular rhythm RATE: regular rate RHYTHM: regular rhythm GI: COMMON NORMALS: Soft to palpation PALPATION: Yes Soft to palpation Back/Pelvis: COMMON NORMALS: thoracic and lumbar spine normal to inspection Extremity: COMMON NORMALS: no pedal edema Neuro: SENSORIUM/ORIENTATION: Yes alert Skin: COMMON NORMALS: turgor normal GENERAL SKIN EXAM: turgor normal Course 2 Vital Signs: Vital signs: Vital Signs Temperature 98 F 12/04/23 23:20 Pulse Rate 120 H 12/05/23 01:14 Respiratory Rate 18 12/05/23 01:14 Blood Pressure 121/90 12/05/23 01:14 Pulse Oximetry 96 12/05/23 01:14 Oxygen Delivery Me thod Room Air 12/04/23 23:36 MDM - SOB/Dyspnea Medical Decision Making 23-year-old female comes in today complains of shortness of breath. Patient reports exacerbation of asthma. Patient appears nontoxic. Patient appears in no pain. Lungs are decreased in the bases with some inspiratory wheezes. Good air movement is noted in the upper lung franklin. Skin is warm and dry. Vital signs are normal except for some tachycardia at 133 and respiratory rate of 28. Patient is 92% on room air. Differential diagnosis includes not limited to acute exacerbation of asthma, pneumonia, respiratory failure. Patient was treated with Solu-Medrol 125, DuoNeb treatment, and 2 g of magnesium sulfate. Patient had improvement of air movement throughout lung franklin. Oxygen saturation raised to 95% on room air. Patient felt much improved. Patient was discharged home in stable condition with prescription for prednisone burst. Lab Data 12/04/23 23:29 12/04/23 23: Labs/Radiology: Radiology Impressions Chest X-Ray 12/04/23: IMPRESSION: No acute findings. Laboratory Results WBC 10.69 10^3/uL (3.29-11.43) 12/04/23 23: RBC 5.72 10^6/uL (3.85-5.65) H 12/04/23 23: Hgb 16.30 g/dL (11.27-16.99) 12/04/23 23: Hct 47.2 % (36-47) H 12/04/23 23: MCV 82.5 fl (85-98) L 12/04/23 23: MCH 28.5 pg (27-33) 12/04/23 23: MCHC 34.5 g/dL (30-55) 12/04/23 23: RDW 11.9 % (12.1-15.1) L 12/04/23: Plt Count 359 10^3/cmm (157-399) 12/04/23 23: MPV 9.4 fL (7.4-10.4) 12/04/23 23: Neut % (Auto) 35.4 % 12/04/23 23: Lymph % (Auto) 52.9 % 12/04/23: Irion % (Auto) 7.3 % 12/04/23 23: Eos % (Auto) 3.6 % 12/04/23 23: Baso % (Auto) 0.7 % 12/04/23 23: Neut # (Auto) 3.79 10^3/uL (1.8-7.7) 12/04/23 23: Lymph # (Auto) 5.7 10^3/uL (0.8-4.8) H 12/04/23 23: Irion # (Auto) 0.8 10^3/uL (0.2-0.9) 12/04/23 23: Eos # (Auto) 0.4 10^3/uL (0.0-0.8) 12/04/23 23: Baso # (Auto) 0.1 10^3/uL (0.0-0.1) 12/04/23 23:29 Nucleated RBC % (auto) 0 % 12/04/23 23: Nucleated RBCs # 0.0 /100WBC 12/04/23 23:29 Sodium 141 mmol/L (136-145) 12/04/23 23:29 Potassium 3.9 mmol/L (3.5-5.1) 12/04/23 23:29 Chloride 105 mmol/L (98-107) 12/04/23 23:29 Carbon Dioxide 22 mmol/L (22-29) 12/04/23 23: Anion Gap 17.9 (5-19) 12/04/23 23: BUN 12 mg/dL (6-20) 12/04/23 23: Creatinine 0.9 mg/dL (0.5-0.9) 12/04/23 23:29 GFR Calculation 79.0 mL/min (90-130) L 12/04/23 23:29 Glucose 106 mg/dL (65-115) 12/04/23 23: Calculated Osmolality 292 mOsm/kg (285-295) 12/04/23 23: Calcium 10.0 mg/dL (8.5-10.5) 12/04/23 23: Total Bilirubin 0.2 mg/dL (0.15-1.2) 12/04/23 23:29 AST 18 U/L (0-32) 12/04/23 23:29 ALT 22 U/L (0-33) 12/04/23 23:29 Alkaline Phosphatase 97 U/L (35-105) 12/04/23 23: Total Protein 8.1 g/dL (6.6-8.7) 12/04/23 23: Albumin 4.6 g/dL (3.5-5.2) 12/04/23 23: Globulin 3.5 g/dL (1.3-4.6) 12/04/23 23:29 All radiology interpretation(s) finalized by discharge Discharge Plan Discharge Patient Disposition: Home Clinical Impression: Asthma with exacerbation Qualifiers: Asthma severity: severe Asthma persistence: persistent Qualified Code(s): J 45.51 - Severe persistent asthma with (acute) exacerbation Condition: Stable Prescriptions: New prednisone 20 mg tablet 20 mg PO TID 5 Days Qty: 15 0RF No Action azelastine 137 mcg (0.1 %) aerosol,spray 2 spray intranasal DAILY Rx Instructions: administer into each nostril can use twice daily prn trazodone 50 mg tablet 50 mg PO BEDTIME PRN (Reason: Sleep) Rx Instructions: may take 2 tabs prn metoclopramide HCl 10 mg tablet,disintegrating 10 mg PO Q6H Qty: 20 0RF Trelegy Ellipta 100-62.5-25 mcg blister with device 1 inh inhalation DAILY medroxyprogesterone [Depo-Provera] 150 mg/mL suspension 150 mg IM .EVERY 90 DAYS Qty: 1 4RF docusate sodium 100 mg capsule 100 mg PO QDAY Qty: 10 0RF Rx Instructions: Instill contents of 1-2 caps in each ear canal; wait 10 mins; irrigate with peroxide albuterol sulfate 2.5 mg /3 mL (0.083 %) solution for nebulization 2.5 mg inhalation Q4H PRN (Reason: shortness of breath or wheezing) Qty: 180 3RF famotidine 40 mg tablet 40 mg PO DAILY Aimovig Autoinjector 140 mg/mL auto-injector 140 mg SUBCUT .monthly diazepam 10 mg tablet 10 mg PO BID PRN diphenhydramine HCl [Allergy (diphenhydramine)] 25 mg capsule 25 mg PO Q8H PRN nortriptyline 50 mg capsule 50 mg PO .hs pantoprazole 40 mg tablet,delayed release (DR/EC) 40 mg PO DAILY Tezspire 210 mg/1.91 mL (110 mg/mL) pen injector 210 mg SUBCUT .monthly albuterol sulfate [ProAir HFA] 90 mcg/actuation HFA aerosol inhaler 2 puff inhalation Q4H PRN (Reason: shortness of breath or wheezing) Qty: 8.5 3RF Nurtec ODT 75 mg tablet,disintegrating PO ONCE ondansetron 4 mg tablet,disintegrating 4 mg PO DAILY PRN (Reason: nausea and vomiting) Qty: 2 0RF minocycline 100 mg capsule 100 mg PO BID Qty: 14 0RF montelukast 10 mg tablet 10 mg PO BEDTIME Qty: 30 2RF epinephrine 0.3 mg/0.3 mL auto-injector 0.3 mg IM ONCE PRN (Reason: allergic reaction) Qty: 2 1RF ibuprofen 600 mg tablet See Rx Instructions .ROUTE .COMPLEX Qty: 60 0RF Hold Instructions: Doctor's Order Dose Instruction: TAKE 1 TABLET BY MOUTH EVERY 8 HOURS NEEDED FOR PAIN Rx Instructions: TAKE 1 TABLET BY MOUTH EVERY 8 HOURS NEEDED FOR PAIN Tylenol Extra Strength 500 mg Tablet 500 - 1,000 mg PO PRN topiramate 50 mg Tablet 100 mg PO BID Flonase Allergy Relief 50 mcg/actuation spray,suspension 1 spray INTRANASAL DAILY Rx Instructions: administer into each nostril ipratropium-albuterol 0.5 mg-3 mg(2.5 mg base)/3 mL solution for nebulization 3 ml inhalation Q6H PRN (Reason: shortness of breath or wheezing) Qty: 90 0RF multivitamin Tablet 1 tab PO DAILY cetirizine 10 mg Tablet 20 mg PO QAM hydroxyzine HCl 25 mg Tablet 25 mg PO Q6H PRN (Reason: Itching) levetiracetam [Keppra XR] 500 mg tablet extended release 24 hr 2,500 mg PO BEDTIME Proctosol HC 2.5 % cream with perineal applicator 1 applic [place] BID PRN (Reason: hemorrhoids) Qty: 30 0RF Discharge Orders: Discharge ED (Routine); Ordered 12/05/23 Ordered By: Carlyle Kimball Referrals: Jorge Nicholas MD [Primary Care Provider] - Discharge Diet: Usual diet Discharge Activity: Increase activity as tolerated Patient Instructions: Asthma Exacerbation - Adult Activity Restrictions/Additional Instructions: Continue with routine medications and treatments as directed. Take steroid burst as prescribed. Follow-up with primary care or return to the ER as needed. Coding Level of Care Code ED Manager Loss Prevention for Konstantin Pedersen
[2023-12-04] MEDS: methylPREDNISolone sod succ 125 mg/2 mL INJ IVP (23:32)
[2023-12-04] MEDS: sodium chloride 0.9% 1,000 ML 999 ML IV (23:32)
[2023-12-04] MEDS: magnesium sulfate premix 2 GM/50 ML PIGGYBACK IV (23:33)
[2023-12-04 23:36] VITALS: PULSE 123; RESP 28; O2SAT 91
[2023-12-04] MEDS: ipratropium-albuterol 3 mL Neb INHALATION (23:36)
[2023-12-04 23:55] LABS: Alanine Aminotransferase 22 U/L (0-33); Albumin Level 4.6 g/dL (3.5-5.2); Alkaline Phosphatase 97 U/L (35-105); Aspartate Amino Transferase 18 U/L (0-32); Blood Urea Nitrogen 12 mg/dL (6-20); Carbon Dioxide 22 mmol/L (22-29); Chloride 105 mmol/L (98-107); Globulin 3.5 g/dL (1.3-4.6); Glucose 106 mg/dL (65-115); Osmolality Calculated 292 mOsm/kg (285-295); Sodium 141 mmol/L (136-145); Total Bilirubin 0.2 mg/dL (0.15-1.2); Total Protein 8.1 g/dL (6.6-8.7)
[2023-12-04 23:59] LABS: Anion Gap 17.9 (5-19); Potassium 3.9 mmol/L (3.5-5.1)
[2023-12-05 00:05] LABS: Basophils # 0.1 10^3/uL (0.0-0.1); Basophils % 0.7 %; Eosinophils # 0.4 10^3/uL (0.0-0.8); Eosinophils % 3.6 %; Hematocrit 47.2 % (36-47); Lymphocytes # 5.7 10^3/uL (0.8-4.8); Lymphocytes % 52.9 %; Mean Corpuscular HGB Conc 34.5 g/dL (30-55); Mean Corpuscular Hemoglobin 28.5 pg (27-33); Mean Corpuscular Volume 82.5 fl (85-98); Mean Platelet Volume 9.4 fL (7.4-10.4); Monocytes # 0.8 10^3/uL (0.2-0.9); Monocytes % 7.3 %; Neutrophils # 3.79 10^3/uL (1.8-7.7); Neutrophils % 35.4 %; Nucleated Red Blood Cells % 0 %; Platelet Count 359 10^3/cmm (157-399); Red Blood Count 5.72 10^6/uL (3.85-5.65); Red Cell Distribution Width 11.9 % (12.1-15.1); White Blood Count 10.69 10^3/uL (3.29-11.43)
[2023-12-05 00:06] LABS: Slide Review Slide Review Perform
[2023-12-05 01:14] VITALS: BP 121/90; PULSE 120; RESP 18; O2SAT 96
== END 2023-12-05 01:15 | disposition home or self-care (01) ==
PROVIDERS: Emergency Provider Nurse Practitioner Family; PCP Family Medicine
DX: J45.51 Severe persistent asthma with (acute) exacerbation (principal)
CPT/HCPCS: 71045; 80053; 85025; 94640; 96365; 96366; 96375; 99284; J2930; J3475; J7030

== ENCOUNTER 2024-06-12 20:22 | Emergency (ER) | payer MEDICARE, MEDICAID, SELFPAY ==
[2024-06-12 20:29] VITALS: BP 145/88; PULSE 103; RESP 17; TEMP 36.8; O2SAT 94; BMI 34.0
--- NOTE | 2024-06-12 20:49 | W.ED.SOB ---
HPI - SOB/Dyspnea General: Chief Complaint: Shortness of Breath/Dyspnea Stated Complaint: Sob Time Seen by Provider: 06/12/24 20:34 Source: patient Mode of arrival: ambulatory Limitations: no limitations History of Present Illness: HPI Narrative: Patient with a known history of reactive airway disease was sweeping around her pet Magalys's cage this evening and apparently raised areas of dander and dust and other potential contaminants which resulted in subjective feelings of shortness of breath. She attempted to use her rescue inhaler which she states did not give her much in the way of benefit. She does not have a spacer that she uses with her inhaler. He was then transported to the emergency department by family. No other symptoms at this time. Her regimen includes long-acting steroid as well as albuterol rescue inhaler. She also takes montelukast as well. Pertinent past history: asthma Context: allergen exposure Relieving factors: nothing Known history of: asthma Associated symptoms: Deny chest pain, extremity pain, fever(s), nausea, palpitations or vomiting Review of Systems Const: Denies: fever(s) or chills ENMT: Denies: throat pain, odynophagia, hoarseness, nasal discharge or nasal congestion Card: Denies: chest pain or palpitations Resp: Reports: dyspnea, non-productive cough and wheezing; Denies: stridor GI: Denies: nausea, vomiting or diarrhea Musc: Denies: back pain, extremity pain or extremity swelling Skin/Breast: Denies: rash or pruritus PFSH ED PFSH: Medical History Nocturnal hypoxemia Severe persistent asthma Severe allergy Eosinophilic gastroenteropathy Gastroenterology in [facility] -Dr. Jax Fragoso Allergy to alpha-gal Tourette's on guanfacine History of anaphylaxis Multiple foods and other exposures. 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 On Fasenra in addition to other medications. Migraine with vision changes. 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 Managed by her neurologist in [facility], sees q 6 months. On Keppra, Topamax, prn valium. Moderate persistent asthma Diagnosed at the age of 4. Denies any intubations for asthma. 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 Surgical History History of esophagogastroduodenoscopy (EGD) (~04/2020) eosinophilic microabscesses H/O shoulder surgery (~2017) right torn rotator cuff Family History Grandmother Heart disease Maternal great grandmother Diabetes Maternal great grandmother Hyperlipidemia maternal great grandmother Hypertension maternal great grandmother Thyroid disease maternal Endometriosis maternal Family/Other Ovarian cancer great aunt Hypertension maternal great aunt, maternal great uncle Multiple myeloma maternal uncle Mother Thyroid disease Other Dementia Lung disease Denies family history of Colon cancer DVT (deep venous thrombosis) CAD (coronary artery disease) Clotting disorder Psychiatric illness Chronic kidney disease (CKD) Breast cancer Anesthesia complication Bleeding disorder Pulmonary embolism Uterine cancer Stroke Female Reproductive History: Spontaneous abortions: No Physical Exam Narrative: EXAM NARRATIVE: She is alert currently wearing oxygen via nasal cannula and able to answer questions in a several word voice without any obvious stridor or dyspnea. Const: COMMON NORMALS: no acute distress, average body habitus, patient oriented x3, healthy appearing and alert HENMT: COMMON NORMALS: normocephalic, Normal nasal mucous membranes and turbinates present, moist oral mucous membranes and oropharynx normal HEAD & SCALP: normocephalic NOSE: Normal nasal mucous membranes and turbinates present Eye: COMMON NORMALS: Equal, round and reactive pupils present, EOMs intact bilaterally and conjunctivae normal CONJUNCTIVA: Yes conjunctivae normal PUPIL: Yes Equal, round and reactive pupils present Neck/C-Spine: COMMON NORMALS: full ROM and no lymphadenopathy Chest: COMMONS NORMALS: normal inspection of the chest Resp: COMMON NORMALS: normal respiratory effort, No retractions and No use of accessory muscles AUSCULTATION: wheezes and diminished lung sounds Cardio: COMMON NORMALS: regular rate, regular rhythm, No murmurs present (Cardio) and Peripheral pulses 2+ throughout RATE: regular rate RHYTHM: regular rhythm PERIPHERAL PULSES: Peripheral pulses 2+ throughout GI: COMMON NORMALS: Normal to inspection, nondistended, normoactive bowel sounds present : COMMON NORMALS: Yes no CVA tenderness BLADDER/KIDNEY EXAM: Yes no CVA tenderness Back/Pelvis: COMMON NORMALS: no CVA tenderness, thoracic and lumbar spine normal to inspection and thoraco-lumbar ROM normal Extremity: COMMON NORMALS: normal to inspection, full ROM and capillary refill normal Neuro: COMMON NORMALS: patient oriented x3, moves all extremities and no focal motor deficits SENSORIUM/ORIENTATION: Yes alert Skin: COMMON NORMALS: no rashes or lesions noted and turgor normal GENERAL SKIN EXAM: no rashes or lesions noted and turgor normal Course Reevaluation(s): Reevaluation #1: Patient was reevaluated. She is subjectively feeling much better and at baseline. Repeat clinical examination revealed excellent air movement with no wheezes or rhonchi at this time. Oxygen was turned to off position and her oxygen saturations remained in the mid 90s. Appears to be clinically stable and improved. Will provide her with a spacer to use with her MDI at home to make it more effective. Patient and family were appreciative of care. Time: 21:47 Vital Signs: Vital signs: Vital Signs Temperature 98.2 F 06/12/24 20:29 Pulse Rate 113 H 06/12/24 21:02 Respiratory Rate 20 H 06/12/24 20:51 Blood Pressure 145/88 06/12/24 20:29 Pulse Oximetry 92 06/12/24 21:02 Oxygen Delivery Me thod Nasal Cannula 06/12/24 21:02 Oxygen Flow Rate 2 06/12/24 21:02 MDM - SOB/Dyspnea Medical Decision Making Patient presented as noted in the HPI. History of chronic reactive airway disease with acute bronchospasm unresponsive to home therapy. Presented with decreased air movement and wheezing. [facility] is primarily acute exacerbation of chronic asthma. She received supplemental oxygen and monitoring while in the emergency department as well as a nebulization including anticholinergic and beta agonist. She responded well to this therapy and improve to her baseline. No oxygen requirement at the time of reevaluation. She is being discharged in stable condition with return precautions. Differential Diagnosis Likely acute exacerbation of chronic obstructive airways disease No radiology studies performed this visit Discharge Plan Discharge Patient Disposition: Home Clinical Impression: Acute bronchospasm Condition: Stable Prescriptions: No Action azelastine 137 mcg (0.1 %) aerosol,spray 2 spray intranasal DAILY Rx Instructions: administer into each nostril can use twice daily prn trazodone 50 mg tablet 50 mg PO BEDTIME PRN (Reason: Sleep) Rx Instructions: may take 2 tabs prn metoclopramide HCl 10 mg tablet,disintegrating 10 mg PO Q6H Qty: 20 0RF Trelegy Ellipta 100-62.5-25 mcg blister with device 1 inh inhalation DAILY medroxyprogesterone [Depo-Provera] 150 mg/mL suspension 150 mg IM .EVERY 90 DAYS Qty: 1 4RF docusate sodium 100 mg capsule 100 mg PO QDAY Qty: 10 0RF Rx Instructions: Instill contents of 1-2 caps in each ear canal; wait 10 mins; irrigate with peroxide albuterol sulfate 2.5 mg /3 mL (0.083 %) solution for nebulization 2.5 mg inhalation Q4H PRN (Reason: shortness of breath or wheezing) Qty: 180 3RF famotidine 40 mg tablet 40 mg PO DAILY Aimovig Autoinjector 140 mg/mL auto-injector 140 mg SUBCUT .monthly diazepam 10 mg tablet 10 mg PO BID PRN diphenhydramine HCl [Allergy (diphenhydramine)] 25 mg capsule 25 mg PO Q8H PRN nortriptyline 50 mg capsule 50 mg PO .hs pantoprazole 40 mg tablet,delayed release (DR/EC) 40 mg PO DAILY Tezspire 210 mg/1.91 mL (110 mg/mL) pen injector 210 mg SUBCUT .monthly albuterol sulfate [ProAir HFA] 90 mcg/actuation HFA aerosol inhaler 2 puff inhalation Q4H PRN (Reason: shortness of breath or wheezing) Qty: 8.5 3RF fluconazole 150 mg tablet 150 mg PO Q3D 0 Days Qty: 2 0RF metronidazole 500 mg tablet 500 mg PO BID 7 Days Qty: 14 0RF estradiol 0.01 % (0.1 mg/gram) cream 1 g vaginal DAILY Qty: 42.5 3RF Rx Instructions: twice daily for 14 days and then apply twice weekly metronidazole 0.75 % gel 1 applic topical DAILY 180 Days Qty: 45 3RF Rx Instructions: apply intravaginally every other day Nurtec ODT 75 mg tablet,disintegrating PO ONCE ondansetron 4 mg tablet,disintegrating 4 mg PO DAILY PRN (Reason: nausea and vomiting) Qty: 2 0RF minocycline 100 mg capsule 100 mg PO BID Qty: 14 0RF montelukast 10 mg tablet 10 mg PO BEDTIME Qty: 30 2RF epinephrine 0.3 mg/0.3 mL auto-injector 0.3 mg IM ONCE PRN (Reason: allergic reaction) Qty: 2 1RF ibuprofen 600 mg tablet See Rx Instructions .ROUTE .COMPLEX Qty: 60 0RF Hold Instructions: Doctor's Order Dose Instruction: TAKE 1 TABLET BY MOUTH EVERY 8 HOURS NEEDED FOR PAIN Rx Instructions: TAKE 1 TABLET BY MOUTH EVERY 8 HOURS NEEDED FOR PAIN Tylenol Extra Strength 500 mg Tablet 500 - 1,000 mg PO PRN topiramate 50 mg Tablet 100 mg PO BID Flonase Allergy Relief 50 mcg/actuation spray,suspension 1 spray INTRANASAL DAILY Rx Instructions: administer into each nostril ipratropium-albuterol 0.5 mg-3 mg(2.5 mg base)/3 mL solution for nebulization 3 ml inhalation Q6H PRN (Reason: shortness of breath or wheezing) Qty: 90 0RF multivitamin Tablet 1 tab PO DAILY cetirizine 10 mg Tablet 20 mg PO QAM hydroxyzine HCl 25 mg Tablet 25 mg PO Q6H PRN (Reason: Itching) levetiracetam [Keppra XR] 500 mg tablet extended release 24 hr 2,500 mg PO BEDTIME Proctosol HC 2.5 % cream with perineal applicator 1 applic [place] BID PRN (Reason: hemorrhoids) Qty: 30 0RF Discharge Orders: Discharge ED (Routine); Ordered 06/12/24 Ordered By: Mark Anthony Enamorado Referrals: Jorge Nicholas MD [Primary Care Provider] - Discharge Diet: Usual diet Discharge Activity: Resume usual activity Patient Instructions: Opioid Safety, Pain Management Activity Restrictions/Additional Instructions: As we discussed it is important to continue usual use your usual prescribed medications as indicated. The spacer that we have provided you in the emergency department should be used with your albuterol inhaler to make it much more effective when you get acute wheezing or difficulty breathing. If you develop any return of your symptoms that are not improved with your usual home therapy or any other concerns you are welcome to return to the emergency department at any time. Coding Level of Care Code ED Contract Administration Coordinator for Konstantin Pedersen
[2024-06-12 20:51] VITALS: PULSE 102; RESP 20; O2SAT 94
[2024-06-12] MEDS: ipratropium-albuterol 3 mL Neb INHALATION ×2 (20:51→20:54)
[2024-06-12 21:00] VITALS: BP 133/81; PULSE 116; RESP 16; O2SAT 92
[2024-06-12 21:02] VITALS: PULSE 113; O2SAT 92
[2024-06-12 21:30] VITALS: BP 137/93; PULSE 114; RESP 12; O2SAT 94
[2024-06-12 22:00] VITALS: BP 118/85; PULSE 106; RESP 14; O2SAT 96
== END 2024-06-12 22:10 | disposition home or self-care (01) ==
PROVIDERS: Emergency Provider Emergency Medicine; PCP Family Medicine
DX: J98.01 Acute bronchospasm (principal)
CPT/HCPCS: 94640; 99283

== ENCOUNTER 2024-12-27 02:58 | Emergency (ER) | payer MEDICARE, MEDICAID, SELFPAY ==
[2024-12-27 03:00] VITALS: BP 140/109; PULSE 119; RESP 18; TEMP 37.4; O2SAT 99; BMI 34.0
--- NOTE | 2024-12-27 03:01 | XRR_ITS ---
PROCEDURE INFORMATION: Exam: XR Chest Exam date and time: 12/27/2024 3:35 AM Age: 24 years old Clinical indication: Cough with congestion TECHNIQUE: Imaging protocol: Radiologic exam of the chest. Views: 1 view. COMPARISON: CR XR chest 1V portable [id number] 12/04/2023 11:39 PM FINDINGS: Lungs: Unremarkable. No consolidation. Pleural spaces: Unremarkable. No pleural effusion. No pneumothorax. Heart/Mediastinum: Unremarkable. No cardiomegaly. Bones/joints: Unremarkable. XR/XR chest 1V portable [id number] IMPRESSION: No acute findings.
[2024-12-27 03:09] VITALS: BP 140/109; PULSE 113; O2SAT 98
--- NOTE | 2024-12-27 03:13 | W.ED.URI ---
HPI - URI/Sore Throat General: Chief Complaint: Upper Respiratory Infection Stated Complaint: Cough\Conjested Time Seen by Provider: 12/27/24 03:01 Source: patient Mode of arrival: ambulatory Limitations: no limitations History of Present Illness: 24-year-old female states for last 3 days she been having cough congestion, body aches. States her cough has been productive in nature and she has vomited while she is cough. She has a history of asthma she denies any worsening improving factors. Associated symptoms: Reports vomiting; Deny abdominal pain, chills, chest pain, diarrhea, fever(s), headache(s) or nausea Related Data Home Medications ?Medication ?Instructions ?Recorded ?Confirmed cetirizine 10 mg tablet 20 mg PO QAM 11/12/19 12/10/24 hydroxyzine HCl 25 mg tablet 25 mg PO Q6H PRN Itching 11/12/19 12/10/24 multivitamin 1 tab PO DAILY 11/12/19 12/10/24 azelastine 137 mcg (0.1 %) nasal 2 spray intranasal DAILY 03/14/21 12/10/24 spray trazodone 50 mg tablet 50 mg PO BEDTIME PRN Sleep 03/14/21 12/10/24 acetaminophen 500 mg tablet 500 - 1,000 mg PO PRN 04/19/21 12/10/24 (Tylenol Extra Strength) fluticasone propionate 50 1 spray intranasal DAILY 04/19/21 12/10/24 mcg/actuation nasal spray,suspension (Flonase Allergy Relief) topiramate 50 mg tablet 100 mg PO BID 04/19/21 12/10/24 fluticasone fur. 100 mcg-umeclid 1 inh inhalation DAILY 12/29/21 12/10/24 62.5 mcg-vilant 25 mcg inhalat.powder (Trelegy Ellipta) rimegepant 75 mg disintegrating mg PO ONCE 05/23/22 12/10/24 tablet (Nurtec ODT) famotidine 40 mg tablet 40 mg PO DAILY 01/02/23 12/10/24 diazepam 10 mg tablet 10 mg PO BID PRN 06/23/23 12/10/24 diphenhydramine HCl 25 mg capsule 25 mg PO Q8H PRN 06/23/23 12/10/24 (Allergy (diphenhydramine)) erenumab-aooe 140 mg/mL 140 mg SUBCUT .monthly 06/23/23 12/10/24 subcutaneous auto-injector (Aimovig Autoinjector) levetiracetam 500 mg 2,500 mg PO BEDTIME 06/23/23 12/10/24 tablet,extended release 24 hr (Keppra XR) nortriptyline 50 mg capsule 50 mg PO .hs 06/23/23 12/10/24 pantoprazole 40 mg tablet,delayed 40 mg PO DAILY 06/23/23 12/10/24 release tezepelumab-ekko 210 mg/1.91 mL 210 mg SUBCUT .monthly 06/23/23 12/10/24 (110 mg/mL) subcutaneous pen injector (Tezspire) Previous Rx's ?Medication ?Instructions ?Recorded metoclopramide HCl 10 mg 10 mg PO Q6H #20 tabs 08/14/21 disintegrating tablet montelukast 10 mg tablet 10 mg PO BEDTIME #30 tabs 11/26/21 ipratropium 0.5 mg-albuterol 3 mg 3 ml inhalation Q6H PRN shortness 01/08/22 (2.5 mg base)/3 mL nebulization of breath or wheezing #90 mL soln epinephrine 0.3 mg/0.3 mL 0.3 mg (0.3 mL) IM ONCE PRN 08/01/22 injection, auto-injector allergic reaction #2 ea ondansetron 4 mg disintegrating 4 mg PO DAILY PRN nausea and 10/01/22 tablet vomiting #2 tabs albuterol sulfate 2.5 mg/3 mL 2.5 mg (3 mL) inhalation Q4H PRN 01/02/23 (0.083 %) solution for nebulization shortness of breath or wheezing #180 mL docusate sodium 100 mg capsule 100 mg PO QDAY #10 caps 01/02/23 albuterol sulfate 90 mcg/actuation 2 puff inhalation Q4H PRN 06/23/23 aerosol inhaler (ProAir HFA) shortness of breath or wheezing #8.5 grams hydrocortisone 2.5 % topical cream 1 applic [place] BID PRN hemorrhoids 09/11/23 with perineal applicator #30 grams (Proctosol HC) nystatin-triamcinolone 100,000 1 applic topical BID #60 grams 08/09/24 unit/g-0.1 % topical cream ibuprofen 600 mg tablet See Rx Instructions .Route 09/09/24 .COMPLEX #60 tabs medroxyprogesterone 150 mg/mL See Rx Instructions .Route 12/03/24 intramuscular suspension .COMPLEX #1 mL azithromycin 250 mg tablet See Rx Instructions PO .COMPLEX #6 12/10/24 tabs prednisone 20 mg tablet 20 mg PO BID 5 days #10 tabs 12/10/24 Allergies Allergy/AdvReac Type Severity Reaction Status Date / Time fremanezumab-vfrm (From Allergy Severe ALGY-Swell Verified 12/27/24 03:05 Ajovy Autoinjector) Lip/Tongue/Throat apple Allergy Throat itch Verified 12/27/24 03:05 banana Allergy ALGY-Anaphy Verified 12/27/24 03:05 laxis egg Allergy throat itch Verified 12/27/24 03:05 grape Allergy ALGY-Anaphy Verified 12/27/24 03:05 laxis Iodinated Contrast Media Allergy ALGY-Hives Verified 12/27/24 03:05 lettuce Allergy ALGY-Anaphy Verified 12/27/24 03:05 laxis orange juice Allergy ALGY-Anaphy Verified 12/27/24 03:05 laxis pineapple Allergy ALGY-Anaphy Verified 12/27/24 03:05 laxis shellfish derived Allergy Anaphylaxis Verified 12/27/24 03:05 watermelon Allergy ALGY-Anaphy Verified 12/27/24 03:05 laxis wheat Allergy ALGY-Swell Verified 12/27/24 03:05 Lip/Tongue/Throat Review of Systems Const: Denies: fever(s), chills, body aches or change in appetite ENMT: Denies: throat pain or dental pain Card: Denies: chest pain Resp: Reports: dyspnea and productive cough GI: Reports: vomiting; Denies: abdominal pain, nausea or diarrhea : Denies: dysuria Musc: Denies: neck pain or back pain Skin/Breast: Denies: rash Neuro: Denies: headache(s) PFSH ED PFSH: Medical History Nocturnal hypoxemia Severe persistent asthma Severe allergy Eosinophilic gastroenteropathy Gastroenterology in [facility] -Dr. Jax Fragoso Allergy to alpha-gal Tourette's on guanfacine History of anaphylaxis Multiple foods and other exposures. 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 On Fasenra in addition to other medications. Migraine with vision changes. 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 Managed by her neurologist in [facility], sees q 6 months. On Keppra, Topamax, prn valium. Moderate persistent asthma Diagnosed at the age of 4. Denies any intubations for asthma. [facility] in [facility]. Surgical History History of esophagogastroduodenoscopy (EGD) (~04/2020) eosinophilic microabscesses H/O shoulder surgery (~2017) right torn rotator cuff Family History Grandmother Heart disease Maternal great grandmother Diabetes Maternal great grandmother Hyperlipidemia maternal great grandmother Hypertension maternal great grandmother Thyroid disease maternal Endometriosis maternal Family/Other Ovarian cancer great aunt Hypertension maternal great aunt, maternal great uncle Multiple myeloma maternal uncle Mother Thyroid disease Other Dementia Lung disease Denies family history of Colon cancer DVT (deep venous thrombosis) CAD (coronary artery disease) Clotting disorder Psychiatric illness Chronic kidney disease (CKD) Breast cancer Anesthesia complication Bleeding disorder Pulmonary embolism Uterine cancer Stroke Social History Smoking and tobacco/nicotine status: never used tobacco/nicotine Female Reproductive History: Spontaneous abortions: No Physical Exam Const: COMMON NORMALS: no acute distress, patient oriented x3 and healthy appearing HENMT: COMMON NORMALS: normocephalic and atraumatic HEAD & SCALP: normocephalic and atraumatic Eye: COMMON NORMALS: conjunctivae normal CONJUNCTIVA: Yes conjunctivae normal Neck/C-Spine: COMMON NORMALS: full ROM and supple Chest: COMMONS NORMALS: normal inspection of the chest Resp: COMMON NORMALS: normal respiratory effort, No retractions, No use of accessory muscles and clear to auscultation bilaterally AUSCULTATION: clear to auscultation bilaterally Cardio: COMMON NORMALS: regular rhythm and No murmurs present (Cardio) RATE: tachycardic RHYTHM: regular rhythm GI: COMMON NORMALS: Normal to inspection, nondistended, normoactive bowel sounds present, Soft to palpation, non-tender and no masses PALPATION: Yes Soft to palpation Extremity: COMMON NORMALS: normal to inspection and full ROM Neuro: COMMON NORMALS: patient oriented x3, moves all extremities and no focal motor deficits Psych: COMMON NORMALS: mental status grossly normal, Normal thought process present and cooperative THOUGHT PROCESS: Normal thought process present Skin: COMMON NORMALS: no rashes or lesions noted and no wounds GENERAL SKIN EXAM: no rashes or lesions noted Course Vital Signs: Vital signs: Vital Signs Temperature 99.3 F 12/27/24 03:00 Pulse Rate 113 H 12/27/24 03:09 Respiratory Rate 18 12/27/24 03:00 Blood Pressure 140/109 12/27/24 03:09 Pulse Oximetry 98 12/27/24 03:09 Oxygen Delivery Me thod Room Air 12/27/24 03:09 MDM - URI/Sore Throat Medical Decision Making Patient presents with cough congestion is likely an upper respiratory infection x-ray shows no pneumonia blood work here is normal she stable for discharge follow-up with PCP return if worsening. Medical Records I reviewed the patient's medical records. Lab Data I reviewed the patient's lab results. 12/27/24 03:33 12/27/24 03:33 Radiology Impressions Chest X-Ray 12/27/24 03:01 IMPRESSION: No acute findings. Laboratory Results WBC 8.83 10^3/uL (3.29-11.43) 12/27/24 03:33 RBC 5.41 10^6/uL (3.85-5.65) 12/27/24 03:33 Hgb 15.70 g/dL (11.27-16.99) 12/27/24 03:33 Hct 46.2 % (36-47) 12/27/24 03:33 MCV 85.4 fl (85-98) 12/27/24 03:33 MCH 29.0 pg (27-33) 12/27/24 03:33 MCHC 34.0 g/dL (30-55) 12/27/24 03:33 RDW 11.9 % (12.1-15.1) L 12/27/24 03:33 Plt Count 333 10^3/cmm (157-399) 12/27/24 03:33 MPV 9.4 fL (7.4-10.4) 12/27/24 03:33 Neut % (Auto) 57.7 % 12/27/24 03:33 Lymph % (Auto) 32.7 % 12/27/24 03:33 Thurston % (Auto) 7.7 % 12/27/24 03:33 Eos % (Auto) 1.4 % 12/27/24 03:33 Baso % (Auto) 0.3 % 12/27/24 03:33 Neut # (Auto) 5.09 10^3/uL (1.8-7.7) 12/27/24 03:33 Lymph # (Auto) 2.9 10^3/uL (0.8-4.8) 12/27/24 03:33 Thurston # (Auto) 0.7 10^3/uL (0.2-0.9) 12/27/24 03:33 Eos # (Auto) 0.1 10^3/uL (0.0-0.8) 12/27/24 03:33 Baso # (Auto) 0.0 10^3/uL (0.0-0.1) 12/27/24 03:33 Nucleated RBC % (auto) 0 % 12/27/24 03:33 Nucleated RBCs # 0.0 /100WBC 12/27/24 03:33 Sodium 144 mmol/L (136-145) 12/27/24 03:33 Potassium 4.3 mmol/L (3.5-5.1) 12/27/24 03:33 Chloride 108 mmol/L (98-107) H 12/27/24 03:33 Carbon Dioxide 24 mmol/L (22-29) 12/27/24 03:33 Anion Gap 16.3 (5-19) 12/27/24 03:33 BUN 12 mg/dL (6-20) 12/27/24 03:33 Creatinine 0.9 mg/dL (0.5-0.9) 12/27/24 03:33 GFR Calculation 78.3 mL/min (90-130) L 12/27/24 03:33 Glucose 108 mg/dL (65-115) 12/27/24 03:33 Calculated Osmolality 298 mOsm/kg (285-295) H 12/27/24 03:33 Calcium 9.5 mg/dL (8.5-10.5) 12/27/24 03:33 Total Bilirubin 0.4 mg/dL (0.15-1.2) 12/27/24 03:33 AST 16 U/L (0-32) 12/27/24 03:33 ALT 16 U/L (0-33) 12/27/24 03:33 Alkaline Phosphatase 82 U/L (35-105) 12/27/24 03:33 Total Protein 7.6 g/dL (6.6-8.7) 12/27/24 03:33 Albumin 4.7 g/dL (3.5-5.2) 12/27/24 03:33 Globulin 2.9 g/dL (1.3-4.6) 12/27/24 03:33 Lipase 17 U/L (13-60) 12/27/24 03:33 HCG, Qual Negative (Negative) 12/27/24 03:33 Coronavirus (PCR) Negative (Negative) 12/27/24 03:13 Influenza A (PCR) Negative (Negative) 12/27/24 03:13 Influenza Type B (PCR) Negative (Negative) 12/27/24 03:13 RSV (PCR) Negative (Negative) 12/27/24 03:13 All radiology interpretation(s) finalized by discharge Discharge Plan Discharge Patient Disposition: Home Clinical Impression: Upper respiratory infection Condition: Stable Prescriptions: No Action azelastine 137 mcg (0.1 %) aerosol,spray 2 spray intranasal DAILY Rx Instructions: administer into each nostril can use twice daily prn trazodone 50 mg tablet 50 mg PO BEDTIME PRN (Reason: Sleep) Rx Instructions: may take 2 tabs prn metoclopramide HCl 10 mg tablet,disintegrating 10 mg PO Q6H Qty: 20 0RF Trelegy Ellipta 100-62.5-25 mcg blister with device 1 inh inhalation DAILY docusate sodium 100 mg capsule 100 mg PO QDAY Qty: 10 0RF Rx Instructions: Instill contents of 1-2 caps in each ear canal; wait 10 mins; irrigate with peroxide albuterol sulfate 2.5 mg /3 mL (0.083 %) solution for nebulization 2.5 mg inhalation Q4H PRN (Reason: shortness of breath or wheezing) Qty: 180 3RF famotidine 40 mg tablet 40 mg PO DAILY Aimovig Autoinjector 140 mg/mL auto-injector 140 mg SUBCUT .monthly diazepam 10 mg tablet 10 mg PO BID PRN diphenhydramine HCl [Allergy (diphenhydramine)] 25 mg capsule 25 mg PO Q8H PRN nortriptyline 50 mg capsule 50 mg PO .hs pantoprazole 40 mg tablet,delayed release (DR/EC) 40 mg PO DAILY Tezspire 210 mg/1.91 mL (110 mg/mL) pen injector 210 mg SUBCUT .monthly albuterol sulfate [ProAir HFA] 90 mcg/actuation HFA aerosol inhaler 2 puff inhalation Q4H PRN (Reason: shortness of breath or wheezing) Qty: 8.5 3RF prednisone 20 mg tablet 20 mg PO BID 5 Days Qty: 10 0RF azithromycin 250 mg tablet See Rx Instructions PO .COMPLEX Qty: 6 0RF Rx Instructions: take 500 mg today (day 1), then 250 mg for 4 days (days 2-5) orally; Nurtec ODT 75 mg tablet,disintegrating PO ONCE ondansetron 4 mg tablet,disintegrating 4 mg PO DAILY PRN (Reason: nausea and vomiting) Qty: 2 0RF nystatin-triamcinolone 100,000-0.1 unit/g-% cream 1 applic topical BID Qty: 60 2RF Rx Instructions: apply to vulva BID montelukast 10 mg tablet 10 mg PO BEDTIME Qty: 30 2RF epinephrine 0.3 mg/0.3 mL auto-injector 0.3 mg IM ONCE PRN (Reason: allergic reaction) Qty: 2 1RF ibuprofen 600 mg tablet See Rx Instructions .ROUTE .COMPLEX Qty: 60 0RF Dose Instruction: TAKE 1 TABLET BY MOUTH EVERY 8 HOURS NEEDED FOR PAIN Rx Instructions: TAKE 1 TABLET BY MOUTH EVERY 8 HOURS NEEDED FOR PAIN medroxyprogesterone 150 mg/mL suspension See Rx Instructions .ROUTE .COMPLEX Qty: 1 0RF Dose Instruction: ADMINISTER 1 ML IN THE MUSCLE EVERY 90 DAYS Rx Instructions: ADMINISTER 1 ML IN THE MUSCLE EVERY 90 DAYS Tylenol Extra Strength 500 mg Tablet 500 - 1,000 mg PO PRN topiramate 50 mg Tablet 100 mg PO BID Flonase Allergy Relief 50 mcg/actuation spray,suspension 1 spray INTRANASAL DAILY Rx Instructions: administer into each nostril ipratropium-albuterol 0.5 mg-3 mg(2.5 mg base)/3 mL solution for nebulization 3 ml inhalation Q6H PRN (Reason: shortness of breath or wheezing) Qty: 90 0RF multivitamin Tablet 1 tab PO DAILY cetirizine 10 mg Tablet 20 mg PO QAM hydroxyzine HCl 25 mg Tablet 25 mg PO Q6H PRN (Reason: Itching) levetiracetam [Keppra XR] 500 mg tablet extended release 24 hr 2,500 mg PO BEDTIME Proctosol HC 2.5 % cream with perineal applicator 1 applic [place] BID PRN (Reason: hemorrhoids) Qty: 30 0RF Discharge Orders: Discharge ED (Routine); Ordered 12/27/24 Ordered By: Efraín Horner Referrals: Jorge Nicholas MD [Primary Care Provider] - 4-7 days Discharge Diet: Advance as tolerated Discharge Activity: Resume usual activity Patient Instructions: Upper Respiratory Infection (ED) Print Language: Upper Sorbian Coding Level of Care Code ED Roofing Apprentice for Konstantin Pedersen
[2024-12-27] MEDS: ondansetron 2 mg/ML SDV 2 mL 4 MG IVP (03:32)
[2024-12-27] MEDS: dexamethasone 10 mg/mL INJ IVP (03:34)
[2024-12-27 03:42] LABS: Basophils % 0.3 %; Eosinophils # 0.1 10^3/uL (0.0-0.8); Eosinophils % 1.4 %; Hematocrit 46.2 % (36-47); Lymphocytes # 2.9 10^3/uL (0.8-4.8); Lymphocytes % 32.7 %; Mean Corpuscular Volume 85.4 fl (85-98); Mean Platelet Volume 9.4 fL (7.4-10.4); Monocytes # 0.7 10^3/uL (0.2-0.9); Monocytes % 7.7 %; Neutrophils # 5.09 10^3/uL (1.8-7.7); Neutrophils % 57.7 %; Nucleated Red Blood Cells % 0 %; Platelet Count 333 10^3/cmm (157-399); Red Blood Count 5.41 10^6/uL (3.85-5.65); Red Cell Distribution Width 11.9 % (12.1-15.1); White Blood Count 8.83 10^3/uL (3.29-11.43)
[2024-12-27 03:55] LABS: Influenza A NEGATIVE (Negative); Influenza B NEGATIVE (Negative); Respiratory Syncytial Virus Ce NEGATIVE (Negative); SARS-CoV-2 PCR NEGATIVE (Negative)
[2024-12-27 03:59] LABS: HCG, Serum Qual Negative (Negative)
[2024-12-27 04:03] LABS: Alanine Aminotransferase 16 U/L (0-33); Albumin Level 4.7 g/dL (3.5-5.2); Alkaline Phosphatase 82 U/L (35-105); Anion Gap 16.3 (5-19); Aspartate Amino Transferase 16 U/L (0-32); Blood Urea Nitrogen 12 mg/dL (6-20); Calcium 9.5 mg/dL (8.5-10.5); Carbon Dioxide 24 mmol/L (22-29); Chloride 108 mmol/L (98-107); Creatinine Clr Calc Pharmacy 94.9426; Globulin 2.9 g/dL (1.3-4.6); Glomerular Filtration Rate 78.3 mL/min (90-130); Glucose 108 mg/dL (65-115); Lipase 17 U/L (13-60); Osmolality Calculated 298 mOsm/kg (285-295); Potassium 4.3 mmol/L (3.5-5.1); Sodium 144 mmol/L (136-145); Total Bilirubin 0.4 mg/dL (0.15-1.2); Total Protein 7.6 g/dL (6.6-8.7)
[2024-12-27 04:34] VITALS: BP 134/99; PULSE 102; O2SAT 97
== END 2024-12-27 04:37 | disposition home or self-care (01) ==
PROVIDERS: Emergency Provider Emergency Medicine; PCP Family Medicine
DX: J06.9 Acute upper respiratory infection, unspecified (principal); Z11.52 Encounter for screening for COVID-19
CPT/HCPCS: 36415; 71045; 80053; 83690; 84703; 85025; 87637; 96374; 96375; 99284; J1100; J2405

== ENCOUNTER → 2025-03-01 16:04 | Outpatient (BNVA) | payer MEDICARE, MEDICAID, SELFPAY | PROVIDERS: PCP Family Medicine; Visit Provider Family Medicine | DX: Z30.9 Encounter for contraceptive management, unspecified (principal); B37.31 Acute candidiasis of vulva and vagina; Z78.9 Other specified health status | CPT/HCPCS: 81025 ==

== ENCOUNTER 2025-09-14 00:30 | Emergency (ER) | payer MEDICARE, MEDICAID, SELFPAY ==
--- OUTSIDE RECORDS SUMMARY | 2025-09-14 00:33 | XMS_ITS | Clinical Summary ---
Author Organization [facility] Address [address] Goff: [place] [address] Care Team Providers Care Rare/Endangered Species Specialist Name Role Phone Samantha Gurrola MD Primary Care Provider Allergies Active Allergy Reactions Criticality Noted Date Comments Fremanezumab-Vfrm Itching,Other (See Comments) Medium 12/17/2022 [place] throat was tightening. Benadryl was used. Iodinated Contrast Media Rash,Swelling High 05/10/2019 [place] Anaphylaxis High 08/09/2021 Medications azelastine (ASTELIN) 137 mcg/actuation nasal spray Administer 1-2 Sprays in each nostril 2 times daily as needed (allergic rhinitis). 30 mL 5 08/24/20 20 Active montelukast (SINGULAIR) 10 mg tablet 3 03/08/20 19 Active hydrOXYzine HCL (ATARAX) 25 mg tablet Take 25 mg by mouth every 6 hours as needed for Itching. 05/10/20 19 Active NEBULIZER AND COMPRESSOR MISC [place] [facility]Non-Drug; Combo Route) route. 12/03/19 20 Active ibuprofen (MOTRIN) 600 mg tablet Take 600 mg by mouth every 8 hours as needed for Pain, Mild. 05/10/20 19 Active fluticasone propionate (FLONASE) 50 mcg/spray [place], Suspension nasal inhaler Administer 1 [place] in each nostril daily. 12/03/19 20 Active cetirizine (ZyrTEC) 10 mg tabletIndication s:Severe persistent asthma without complication (CMS/HCC) Take 2 Tablets (20 mg) by mouth daily. 60 Tablet 11 02/15/20 20 Active diphenhydrAMINE (BENADRYL) 25 mg capsuleIndicatio ns:Other migraine without status migrainosus, not intractable Take 1 Capsule (25 mg) by mouth one time only for 1 dose 1 Capsule 0 02/18/20 20 Active guanFACINE (TENEX) 1 mg tabletIndication s:Chronic motor tic TAKE 1 TABLET BY MOUTH AT BEDTIME 30 Tablet 0 02/29/20 20 Active pantoprazole (PROTONIX) 40 mg Tablet, Delayed Release (E.C.) Take 1 Tablet (40 mg) by mouth daily. 30 Tablet 3 05/18/20 20 Active nortriptyline (PAMELOR) 50 mg capsule Take 1 Capsule (50 mg) by mouth daily at bedtime. 30 Capsule 5 09/26/20 21 Active multivitamin (DAILY-JUSTINO) tablet Take 1 Tablet by mouth daily. 02/20/20 18 Active OTHER Epilepsy Service Dog. 1 Device 0 11/12/19 18 Active metoclopramide HCl (REGLAN) 5 mg tablet TAKE 1 TABLET BY MOUTH DAILY NEEDED FOR NAUSEA AND VOMITING 02/03/20 22 Active famotidine (PEPCID) 40 mg tablet Take 1 Tablet (40 mg) by mouth daily. Before breakfast or lunch 30 Tablet 3 10/02/20 22 Active Additional Information Patient taking differently:40 mg OralTWO TIMES DAILY, Before breakfast or lunch, Reported on 04/11/2025 medroxyPROGESTER one (DEPO-PROVERA) 150 mg/mL Suspension ADMINISTER 1 ML IN THE MUSCLE EVERY 90 DAYS 09/18/20 22 Active diazePAM (DIASTAT ACUDIAL) 10 mg Kit 10 mg by Other route. Active diazePAM (DIASTAT ACUDIAL) 10 mg Kit 10 mg by See Admin Instructions route one time as needed. 08/25/20 17 Active ondansetron (Zofran) 4 mg Tablet Take 1 Tablet (4 mg) by mouth every 8 hours as needed for Nausea/Emesis. 90 Tablet 3 02/20/20 23 Active albuterol (PROVENTIL,DORCAS JOSH) 2.5 mg /3 mL (0.083 %) Solution for NebulizationIndi cations:Severe persistent asthma without complication (CMS/HCC) Take 3 mL (2.5 mg) by inhalation every 4 hours as needed for Shortness of Breath. 90 mL 2 08/25/20 23 Active Nurtec ODT 75 mg Tablet, Rapid DissolveIndicati ons:Chronic migraine without aura, not intractable, without status migrainosus,Medi cation refill DISSOLVE 1 TABLET(75 MG) ON THE TONGUE EVERY DAY NEEDED FOR MIGRAINE. NO MORE THAN 1 DOSE IN 24 HOURS 8 Tablet 11 10/04/20 24 Active levETIRAcetam (KEPPRA XR) 500 mg Extended Release 24 hour tabletIndication s:Partial symptomatic epilepsy with complex partial seizures, intractable, without status epilepticus (CMS/HCC),Tonic- clonic seizure disorder (CMS/HCC),Medica tion refill TAKE 5 TABLETS(2500 MG) BY MOUTH DAILY 150 Tablet 11 10/11/20 24 Active EPINEPHrine (EPIPEN) 0.3 mg/0.3 mL Auto-Injector Inject 0.3 mL (0.3 mg) by intramuscular injection see administration instructions. For anaphylaxis. Repeat if needed in 10 minutes. 2 Each 1 10/25/20 24 Active fluticasone-umec lidinium-vilante rol (Trelegy Ellipta) 200-62.5-25 mcg Disk with DeviceIndication s:Severe persistent asthma without complication (CMS/HCC) INHALE 1 PUFF BY MOUTH DAILY 60 Each 11 11/29/19 25 Active albuterol sulfate HFA 90 mcg/actuation aerosol inhalerIndicatio ns:Severe persistent asthma without complication (CMS/HCC) INHALE 1 TO 2 PUFFS BY MOUTH EVERY 4 HOURS NEEDED FOR SHORTNESS OF BREATH 18 Gram 1 11/29/19 25 Active topiramate (TOPAMAX) 100 mg tabletIndication s:Migraine without aura and without status migrainosus, not intractable,Part ial symptomatic epilepsy with complex partial seizures, intractable, without status epilepticus (CMS/HCC),Tonic- clonic seizure disorder (CMS/HCC),Medica tion refill Take 1 Tablet (100 mg) by mouth daily with breakfast AND 1.5 Tablets (150 mg) daily at bedtime. 75 Tablet 5 04/11/20 25 Active erenumab-aooe (Aimovig Autoinjector) 140 mg/mL Auto-InjectorInd ications:Migrain e without aura and without status migrainosus, not intractable,Medi cation refill 1 mL (140 mg) by See Admin Instructions route every 30 days. 1 mL 11 04/11/20 25 Active Active Problems Problem Noted Date Diagnosed Date Abnormal small bowel biopsy - mildly increased intraepithelial lymphocytes 06/08/2020 Nausea and vomiting 03/03/2020 Eosinophilic esophagitis 03/03/2020 History of allergy 12/03/2019 Chronic motor tic 08/23/2019 Migraine 08/23/2019 Seizures 10/09/2017 Severe persistent asthma without complication Encounters Date Type Department Care Team Description 08/30/2025 External Device Data STL ABSTRACTION Provider, Abstract 08/24/2025 2:30 PM CDT - 08/24/2025 11:59 PM CDT Hospital Encounter [facility] [address] [place] [phone] Thien Hawkins PA Severe persistent asthma without complication ([facility]) Discharge Disposition: Home or Self Care 07/25/2025 2:23 PM CDT - 07/25/2025 11:59 PM CDT Hospital Encounter [facility] [id number] [place] [phone] Thien Hawkins PA Severe persistent asthma without complication (CMS/HCC) Discharge Disposition: Home or Self Care 07/12/2025 External Device Data [place] ABSTRACTION Provider, Abstract 06/29/2025 External Device Data [place] ABSTRACTION Provider, Abstract 06/28/2025 External Device Data [place] ABSTRACTION Provider, Abstract 06/20/2025 2:00 PM CDT - 06/20/2025 11:59 PM CDT Hospital Encounter [facility] [address] [place] [phone] Thien Hawkins PA Severe persistent asthma without complication (CMS/HCC) Discharge Disposition: Home or Self Care 06/15/2025 External Device Data [place] ABSTRACTION Provider, Abstract 06/14/2025 External Device Data [place] ABSTRACTION Provider, Abstract from Last 3 Months Family History Medical History Relation Name Comments Anxiety Brother 1 Demetrio (half) Depression Brother 1 Demetrio (half) Eczema Brother 1 Demetrio (half) Anxiety Brother 2 Jacob (half) Immunodeficiency Maternal Aunt Allergic Rhinitis Maternal Grandmother Allergy-severe Maternal Grandmother Anxiety Maternal Grandmother Asthma Maternal Grandmother Depression Maternal Grandmother GERD Maternal Grandmother Allergic Rhinitis Mother myah Allergy-severe Mother myah Anxiety Mother myah Asthma Mother myah Chronic Sinusitis Mother myah Depression Mother myah Migraines Mother myah Tuberculosis Other Great grandmoth er Anxiety Sister 1 Nannette (half) Depression Sister 1 Nannette (half) Eczema Sister 1 Nannette (half) Other Sister 1 Nannette (half) nervous tic whe n very little Anxiety Sister 2 Dora (half) Depression Sister 2 Dora (half) Colon Cancer Neg Hx Cystic Fibrosis Neg Hx Seizures Neg Hx Relation Name Status Comments Brother 1 Demetrio (half) Alive Brother 2 Jacob (half) Alive Father Alive Maternal Aunt Maternal Grandmother Mother myah Alive Other Sister 1 Nannette (half) Sister 2 Dora (half) Alive Social History Tobacco Use Types Packs/Day Years Used Date Smoking Tobacco: Never Passive Smoke Exposure: Yes Smokeless Tobacco: Never Tobacco Cessation:Counseling Given: Not Answered Alcohol Use Standard Drinks/Week Comments Not Currently 0 (1 standard drink = 0.6 oz pur e alcohol) Comments No Sex and Gender Information Value Date Recorded Sex Assigned at Not on file Legal Sex Female 11:50 AM SEWING TECHNIQUES DEMONSTRATOR Gender Identity Not on file Sexual Orientation Not on file Last Filed Vital Signs Vital Sign Reading Time Taken Comments Blood Pressure 131/95 08/24/2025 2:41 PM CDT Pulse 114 08/24/2025 2:41 PM CDT Temperature 37.2 C (98.9 F) 08/24/2025 2:41 PM CDT Respiratory Rate 18 08/24/2025 2:41 PM CDT Oxygen Saturation 97% 08/24/2025 2:41 PM CDT Inhaled Oxygen Concentration - - Weight 84.8 kg (187 lb) 04/11/2025 11:26 AM CDT Height 154.9 cm (5' 1 ) 10/25/2024 1:25 PM SEWING TECHNIQUES DEMONSTRATOR Body Mass Index 35.33 10/25/2024 1:25 PM SEWING TECHNIQUES DEMONSTRATOR Plan of Treatment Upcoming Encounters Date Type Department Care Team (Late st Contact Info) Description 09/26/2025 2:00 PM SEWING TECHNIQUES DEMONSTRATOR Appointment [facility] Specialty Nursing Services [address] [place] [address] Thien Hawkins PA [address] [place] [address] 10/26/2025 12:30 PM SEWING TECHNIQUES DEMONSTRATOR Office Visit [facility] Neurology - [place] [address] [place] [address] Kendall Foreman NP [address] [place] [address] 04/06/2026 1:00 PM CDT Telephone Check Up [facility] Gastroenterology- [place] [address] [place] [address] Kianna Knott NP [address] [place] [address] Health Maintenance Due Date Last Done Comments CHLAMYDIA SCREENING (ANNUAL) 11-24 YEARS 2013 HPV VACCINES (1 - 3-dose series) 2017 DTAP/TDAP/TD VACCINES (1 - Tdap) 2021 HEPATITIS B VACCINES (1 of 3 - 19+ 3-dose series) 02/08 CERVICAL CANCER SCREENING 2023 HPV/Cotest (21-29) 2023 PAP SMEAR 2023 INFLUENZA VACCINE (#1) 2025 Medical Devices Implanted Type Area Security Advisor Device Identifier Shelf Expiration Date Model / Serial / Lot Capsule Oliveira Ph Test [id number] - [id number] Implanted:Qty: 1 on 08/09/2021 by Jax Fragoso MD at [facility] Other N/A: Esophagus [employer] 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 GIVEN 11/24/2022 [id number]-0636 / / [id number] Description:placed at 31 cm ID# [id number] Insurance [place] B [place] PART [place] B Advance Directives For more information, please contact: [phone] * Full Code (Latest Code Status on File) Date Activated Date Inactivated Comments 10/11/2022 7:57 AM 10/11/2022 12:07 PM Care Teams Rare/Endangered Species Specialist Relationship Specialty Start Date End Date Samantha Gurrola MD [address] [place] [phone] PCP - General Pediatrics 08/25/17
--- OUTSIDE RECORDS SUMMARY | 2025-09-14 00:33 | XMS_ITS | Clinical Summary ---
Author Organization [facility] Address [address] [place] [address] Care Team Providers Care Ink Jet Operator Name Role Phone Samantha Gurrola MD Primary Care Provider Allergies Active Allergy Reactions Criticality Noted Date Comments Iodinated Contrast Media Rash,Swelling High 05/10/20 19 Medications ondansetron (ZOFRAN) 4 mg Tablet Take 4 mg by mouth every 8 hours as needed for Nausea/Emesis. Active diazePAM (DIASTAT ACUDIAL) 10 mg Kit 10 mg by See Admin Instructions route one time as needed. Active OTHER Epilepsy Service Dog. 1 Device 8 Active multivitamin (DAILY-JUSTINO) tablet Take 1 Tablet by mouth daily. Active acetaminophen-ca ffeine-butalbita l (FIORICET) 300-40-50 mg capsule 1 Capsule every 4 hours as needed for Pain. 0 9 Active EPINEPHrine (EPIPEN) 0.3 mg/0.3 mL Auto-Injector 2 9 Active medroxyPROGESTER one (DEPO-PROVERA) 150 mg/mL Syringe 2 9 Active montelukast (SINGULAIR) 10 mg tablet 3 9 Active hydrOXYzine HCl (ATARAX) 25 mg tablet Take 25 mg by mouth every 6 hours as needed for Itching. Active ibuprofen (MOTRIN) 600 mg tablet Take 600 mg by mouth every 8 hours as needed for Pain, Mild. Active fluticasone propionate (FLONASE) 50 mcg/spray [place], Suspension nasal inhaler Administer 1 [place] in each nostril daily. Active NEBULIZER AND COMPRESSOR MISC by [facility].(Non-Drug; Combo Route) route. Active cetirizine (ZyrTEC) 10 mg tabletIndication s:Severe persistent asthma without complication (CMS/HCC) Take 2 Tablets (20 mg) by mouth daily. 60 Tablet 11 0 Active diphenhydrAMINE (BENADRYL) 25 mg capsuleIndicatio ns:Other migraine without status migrainosus, not intractable Take 1 Capsule (25 mg) by mouth one time only for 1 dose 1 Capsule 0 Active guanFACINE (TENEX) 1 mg tabletIndication s:Chronic motor tic TAKE 1 TABLET BY MOUTH AT BEDTIME 30 Tablet 0 Active rizatriptan (Maxalt-REAL ESTATE ECONOMIST) 10 mg Tablet, Rapid Dissolve Place 1 Tablet (10 mg) inside cheek every 2 hours as needed for Migraine. may repeat in 2 hours; max dose 30mg in 24 hours 9 Tablet 5 0 Active albuterol (PROVENTIL,DORCAS JOSH) 2.5 mg /3 mL (0.083 %) Solution for NebulizationIndi cations:Severe persistent asthma without complication (CMS/HCC) Take 3 mL (2.5 mg) by inhalation every 4 hours as needed for Respiration. 180 mL 6 0 Active tiotropium (SPIRIVA RESPIMAT) 1.25 mcg/actuation MistIndications: Severe persistent asthma without complication (CMS/HCC) Take 2 Puffs by inhalation daily. 4 Gram 5 0 Active mometasone-formo terol (Dulera) 200-5 mcg/actuation inhaler Take 2 Puffs by inhalation 2 times daily. 1 Gram 0 Active pantoprazole (PROTONIX) 40 mg Tablet, Delayed Release (E.C.) Take 1 Tablet (40 mg) by mouth daily. 30 Tablet 3 0 Active azelastine (ASTELIN) 137 mcg/actuation nasal spray Administer 1-2 Sprays in each nostril 2 times daily as needed (allergic rhinitis). 30 mL 5 0 Active albuterol HFA 90 mcg inhalerIndicatio ns:Severe persistent asthma without complication (CMS/HCC) Take 1-2 Puffs by inhalation every 4 hours as needed for Respiration. 8.5 Gram 6 1 Active traZODone (DESYREL) 50 mg tablet Take 1 Tablet (50 mg) by mouth daily at bedtime. May take 2 tabs if needed 60 Tablet 2 1 Active topiramate (Topamax) 50 mg tablet Take 2 Tablets (100 mg) by mouth 2 times daily. 120 Tablet 5 1 Active levETIRAcetam (KEPPRA XR) 500 mg Extended Release 24 hour tabletIndication s:Seizures (CMS/HCC) Take 6 Tablets (3,000 mg) by mouth daily at bedtime. 180 Tablet 5 1 Active methylPREDNISolo ne (MEDROL) 4 mg tablet Take 4 mg by mouth. Active Active Problems Problem Noted Date Diagnosed Date Abnormal small bowel biopsy - mildly increased intraepithelial lymphocytes 06/08/2020 Eosinophilic esophagitis 03/03/2020 Nausea and vomiting 03/03/2020 History of allergy 12/03/2019 Migraine 08/23/2019 Chronic motor tic 08/23/2019 Seizures 10/09/2017 Severe persistent asthma without complication Family History Medical History Relation Name Comments Anxiety Brother 1 Demetrio (half) Depression Brother 1 Demetrio (half) Eczema Brother 1 Demetrio (half) Anxiety Brother 2 Jacob (half) Immunodeficiency Maternal Aunt Allergic Rhinitis Maternal Grandmother Allergy-severe Maternal Grandmother Anxiety Maternal Grandmother Asthma Maternal Grandmother Depression Maternal Grandmother GERD Maternal Grandmother Allergic Rhinitis Mother darek Allergy-severe Mother darek Anxiety Mother darek Asthma Mother darek Chronic Sinusitis Mother darek Depression Mother darek Migraines Mother darek Tuberculosis Other Great grandmoth er Anxiety Sister [...] Father Alive Maternal Aunt Maternal Grandmother Mother darek Alive Other Sister 1 Nannette (half) Sister 2 Dora (half) Alive Social History Tobacco Use Types Packs/Day Years Used Date Smoking Tobacco: Passive [place] Exposure - Never Smoker Smokeless Tobacco: Never Tobacco Cessation:Counseling Given: No Alcohol Use Standard Drinks/Week Comments Not Currently 0 (1 standard drink = 0.6 oz pur e alcohol) Comments No Sex and Gender Information Value Date Recorded Sex Assigned at Not on file Legal Sex Female 8:21 AM CDT Gender Identity Not on file Sexual Orientation Not on file Last Filed Vital Signs Vital Sign Reading Time Taken Comments Blood Pressure 110/70 05/04/2021 1:09 PM CDT Pulse 93 05/04/2021 1:09 PM CDT Temperature 36.9 C (98.4 F) 04/24/2021 10:16 AM CDT Respiratory Rate 16 04/24/2021 10:16 AM CDT Oxygen Saturation 97% 05/04/2021 1:09 PM CDT Inhaled Oxygen Concentration - - Weight 65.3 kg (144 lb) 05/04/2021 1:09 PM CDT Height 154.9 cm (5' 1 ) 05/04/2021 1:09 PM CDT Body Mass Index 27.21 05/04/2021 1:09 PM CDT Plan of Treatment Health Maintenance Due Date Last Done Comments CHLAMYDIA SCREENING (ANNUAL) 11-24 YEARS 2013 HPV VACCINES (1 - 3-dose series) 2017 DTAP/TDAP/TD VACCINES (1 - Tdap) 2021 HEPATITIS B VACCINES (1 of 3 - 19+ 3-dose series) 02/08 CERVICAL CANCER SCREENING 2023 HPV/Cotest (21-29) 2023 PAP SMEAR 2023 INFLUENZA VACCINE (#1) 2025 Insurance [facility] MEDICAID MEDICAID [facility] MEDICAID MEDICAID Advance Directives For more information, please contact: [phone] * Full Code (Latest Code Status on File) Date Activated Date Inactivated Comments 08/18/2020 7:52 AM 08/18/2020 12:59 PM * Full Code Date Activated Date Inactivated Comments 04/24/2020 1:24 PM 04/24/2020 4:56 PM * Full Code Date Activated Date Inactivated Comments 10/09/2017 9:29 AM 10/10/2017 2:00 PM Care Teams Ink Jet Operator Relationship Specialty Start Date End Date Samantha Gurrola MD [address] [place] [phone] PCP - General Pediatrics 08/25/17
[2025-09-14 00:41] VITALS: BP 139/104; PULSE 116; RESP 18; TEMP 36.5; O2SAT 98; BMI 34.9
[2025-09-14 01:30] VITALS: BP 150/90; PULSE 96; O2SAT 98
[2025-09-14 02:00] VITALS: BP 131/93; PULSE 98; O2SAT 97
--- NOTE | 2025-09-14 02:15 | W.ED.GENADLT ---
HPI - General Adult General: Chief complaint: Headache Stated complaint: Migraine Time Seen by Provider: 09/14/25 00:33 History of Present Illness: Patient is a 25-year-old female with a history of migraines and asthma who presents with a chief complaint of right sided sharp and stabbing headache, similar to previous migraines. Onset was this evening. She states the headache started about 5/10 and then gradually progressed to 8/10 over the next hour. Today, she is not experiencing any vision changes, double vision, loss of vision, confusion, difficulty with speech, swallowing, focal numbness, focal weakness or difficulty with coordination. She has been experiencing nausea and vomiting and subsequently has generalized periumbilical abdominal cramping but this started after vomiting. She has not been ill with a fever. She denies current chest pain or shortness of breath though she felt short of breath at home after vomiting. She has a history of asthma. She denies diarrhea, blood in stool, dysuria or hematuria. She has taken Tylenol at home for pain. Related Data Home Medications ?Medication ?Instructions ?Recorded ?Confirmed cetirizine 10 mg tablet 20 mg PO QAM 11/12/19 08/15/25 hydroxyzine HCl 25 mg tablet 25 mg PO Q6H PRN Itching 11/12/19 08/15/25 multivitamin 1 tab PO DAILY 11/12/19 08/15/25 azelastine 137 mcg (0.1 %) nasal 2 spray intranasal DAILY 03/14/21 08/15/25 spray trazodone 50 mg tablet 50 mg PO BEDTIME PRN Sleep 03/14/21 08/15/25 acetaminophen 500 mg tablet 500 - 1,000 mg PO PRN 04/19/21 08/15/25 (Tylenol Extra Strength) fluticasone propionate 50 1 spray intranasal DAILY 04/19/21 08/15/25 mcg/actuation nasal spray,suspension (Flonase Allergy Relief) topiramate 50 mg tablet 100 mg PO BID 04/19/21 08/15/25 fluticasone fur. 100 mcg-umeclid 1 inh inhalation DAILY 12/29/21 08/15/25 62.5 mcg-vilant 25 mcg inhalat.powder (Trelegy Ellipta) rimegepant 75 mg disintegrating mg PO ONCE 05/23/22 08/15/25 tablet (Nurtec ODT) diazepam 10 mg tablet 10 mg PO BID PRN 06/23/23 08/15/25 diphenhydramine HCl 25 mg capsule 25 mg PO Q8H PRN 06/23/23 08/15/25 (Allergy (diphenhydramine)) erenumab-aooe 140 mg/mL 140 mg SUBCUT .monthly 06/23/23 08/15/25 subcutaneous auto-injector (Aimovig Autoinjector) levetiracetam 500 mg 2,500 mg PO BEDTIME 06/23/23 08/15/25 tablet,extended release 24 hr (Keppra XR) nortriptyline 50 mg capsule 50 mg PO .hs 06/23/23 08/15/25 pantoprazole 40 mg tablet,delayed 40 mg PO DAILY 06/23/23 08/15/25 release tezepelumab-ekko 210 mg/1.91 mL 210 mg SUBCUT .monthly 06/23/23 08/15/25 (110 mg/mL) subcutaneous pen injector (Tezspire) Previous Rx's ?Medication ?Instructions ?Recorded metoclopramide HCl 10 mg 10 mg PO Q6H #20 tabs 08/14/21 disintegrating tablet montelukast 10 mg tablet 10 mg PO BEDTIME #30 tabs 11/26/21 epinephrine 0.3 mg/0.3 mL 0.3 mg (0.3 mL) IM ONCE PRN 08/01/22 injection, auto-injector allergic reaction #2 ea ondansetron 4 mg disintegrating 4 mg PO DAILY PRN nausea and 10/01/22 tablet vomiting #2 tabs docusate sodium 100 mg capsule 100 mg PO QDAY #10 caps 01/02/23 albuterol sulfate 90 mcg/actuation 2 puff inhalation Q4H PRN 06/23/23 aerosol inhaler (ProAir HFA) shortness of breath or wheezing #8.5 grams hydrocortisone 2.5 % topical cream 1 applic NC BID PRN hemorrhoids 09/11/23 with perineal applicator #30 grams (Proctosol HC) nystatin-triamcinolone 100,000 1 applic topical BID #60 grams 08/09/24 unit/g-0.1 % topical cream albuterol sulfate 2.5 mg/3 mL 2.5 mg (3 mL) inhalation Q4H PRN 03/01/25 (0.083 %) solution for nebulization shortness of breath or wheezing #180 mL oxygen, mask, supplies #1 ea 03/10/25 famotidine 40 mg tablet 40 mg PO QDAY #90 tabs 04/13/25 medroxyprogesterone 150 mg/mL See Rx Instructions .Route 05/25/25 intramuscular suspension .COMPLEX #1 mL ibuprofen 400 mg tablet 400 mg PO Q8H PRN pain #60 tabs 08/15/25 Allergies Allergy/AdvReac Type Severity Reaction Status Date / Time fremanezumab-vfrm (From Allergy Severe ALGY-Swell Verified 09/14/25 00:51 Ajovy Autoinjector) Lip/Tongue/Throat apple Allergy Throat itch Verified 09/14/25 00:51 banana Allergy ALGY-Anaphy Verified 09/14/25 00:51 laxis egg Allergy throat itch Verified 09/14/25 00:51 grape Allergy ALGY-Anaphy Verified 09/14/25 00:51 laxis Iodinated Contrast Media Allergy ALGY-Hives Verified 09/14/25 00:51 lettuce Allergy ALGY-Anaphy Verified 09/14/25 00:51 laxis orange juice Allergy ALGY-Anaphy Verified 09/14/25 00:51 laxis pineapple Allergy ALGY-Anaphy Verified 09/14/25 00:51 laxis shellfish derived Allergy Anaphylaxis Verified 09/14/25 00:51 watermelon Allergy ALGY-Anaphy Verified 09/14/25 00:51 laxis wheat Allergy ALGY-Swell Verified 09/14/25 00:51 Lip/Tongue/Throat PFSH ED PFSH: Medical History (Updated 09/14/25 @ 02:43 by Chantell Calles MD) Contraceptive management Insomnia Anxiety Moderate major depression Nocturnal hypoxemia Severe persistent asthma Severe allergy Eosinophilic gastroenteropathy Gastroenterology in [facility] -Dr. Jax Fragoso Allergy to alpha-gal Tourette's on guanfacine History of anaphylaxis Multiple foods and other exposures. 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 On Fasenra in addition to other medications. Migraine with vision changes. Generalized epilepsy Moderate persistent asthma Diagnosed at the age of 4. Denies any intubations for asthma. 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 Surgical History History of esophagogastroduodenoscopy (EGD) (~04/2020) eosinophilic microabscesses H/O shoulder surgery (~2017) right torn rotator cuff Family History Grandmother Heart disease Maternal great grandmother Diabetes Maternal great grandmother Hyperlipidemia maternal great grandmother Hypertension maternal great grandmother Thyroid disease maternal Endometriosis maternal Family/Other Ovarian cancer great aunt Hypertension maternal great aunt, maternal great uncle Multiple myeloma maternal uncle Mother Thyroid disease Other Dementia Lung disease Denies family history of Colon cancer DVT (deep venous thrombosis) CAD (coronary artery disease) Clotting disorder Psychiatric illness Chronic kidney disease (CKD) Breast cancer Anesthesia complication Bleeding disorder Pulmonary embolism Uterine cancer Stroke Social History Smoking and tobacco/nicotine status: never used tobacco/nicotine Female Reproductive History: Spontaneous abortions: No Physical Exam Narrative: EXAM NARRATIVE: Vital signs were reviewed. Patient is alert and oriented. PERRL, EOMI. No facial asymmetry. Speech is clear. Patient is breathing comfortably, no increased WOB or accessory muscle use. SpO2 is above 95% on RA. Patient has clear lungs b/l, no rhonchi, wheezing or crackles. No hypotension or tachycardia. Abdomen is soft, nondistended and nontender. Patient is moving all extremities, no deformity or gross injury. No lower extremity edema or asymmetry. Full strength in extremities, no drift. Able to perform FNF, heel to campos testing. Ambulatory. Course Vital Signs: Vital signs: Vital Signs Temperature 97.7 F 09/14/25 00:41 Pulse Rate 98 09/14/25 02:00 Respiratory Rate 18 09/14/25 00:41 Blood Pressure 131/93 09/14/25 02:00 Pulse Oximetry 97 09/14/25 02:00 Oxygen Delivery Me thod Room Air 09/14/25 02:00 MDM - General Adult Medical Decision Making 25-year-old female presents with a chief complaint of migraine headache. She states it is similar to previous though onset was a little faster than usual. Differential diagnosis includes but is not limited to, migraine headache, status migrainosus, tension headache, underlying infection such as viral URI, meningitis, ICH, other. On exam she is chemically stable and nontoxic-appearing. She does not have any focal neurologic deficits. Patient reports her headache to be 8 out of 10. She states it is similar to previous. Patient denies possibility of , reports that she is on control and is abstinent. She was treated with IV fluids, IV Compazine, IV Toradol and IV dexamethasone. On reassessment, patient states her headache has nearly completely resolved, she feels well enough to go home. Her presentation is most consistent with migraine headache. Patient was counseled on supportive care at home, given return precautions and discharged in stable condition with recommendation for outpatient follow-up with primary care nurse or doctor. No radiology studies performed this visit Discharge Plan Discharge Patient Disposition: Home Clinical Impression: Migraine Qualifiers: Migraine type: unspecified Status migrainosus presence: without status migrainosus Intractability: not intractable Qualified Code(s): G43.909 - Migraine, unspecified, not intractable, without status migrainosus Condition: Stable Prescriptions: No Action azelastine 137 mcg (0.1 %) aerosol,spray 2 spray intranasal DAILY Rx Instructions: administer into each nostril can use twice daily prn trazodone 50 mg tablet 50 mg PO BEDTIME PRN (Reason: Sleep) Rx Instructions: may take 2 tabs prn metoclopramide HCl 10 mg tablet,disintegrating 10 mg PO Q6H Qty: 20 0RF Trelegy Ellipta 100-62.5-25 mcg blister with device 1 inh inhalation DAILY docusate sodium 100 mg capsule 100 mg PO QDAY Qty: 10 0RF Rx Instructions: Instill contents of 1-2 caps in each ear canal; wait 10 mins; irrigate with peroxide Aimovig Autoinjector 140 mg/mL auto-injector 140 mg SUBCUT .monthly diazepam 10 mg tablet 10 mg PO BID PRN diphenhydramine HCl [Allergy (diphenhydramine)] 25 mg capsule 25 mg PO Q8H PRN nortriptyline 50 mg capsule 50 mg PO .hs pantoprazole 40 mg tablet,delayed release (DR/EC) 40 mg PO DAILY Tezspire 210 mg/1.91 mL (110 mg/mL) pen injector 210 mg SUBCUT .monthly albuterol sulfate [ProAir HFA] 90 mcg/actuation HFA aerosol inhaler 2 puff inhalation Q4H PRN (Reason: shortness of breath or wheezing) Qty: 8.5 3RF famotidine 40 mg tablet 40 mg PO QDAY Qty: 90 1RF ibuprofen 400 mg tablet 400 mg PO Q8H PRN (Reason: pain) Qty: 60 0RF Nurtec ODT 75 mg tablet,disintegrating PO ONCE ondansetron 4 mg tablet,disintegrating 4 mg PO DAILY PRN (Reason: nausea and vomiting) Qty: 2 0RF nystatin-triamcinolone 100,000-0.1 unit/g-% cream 1 applic topical BID Qty: 60 2RF Rx Instructions: apply to vulva BID albuterol sulfate 2.5 mg /3 mL (0.083 %) solution for nebulization 2.5 mg inhalation Q4H PRN (Reason: shortness of breath or wheezing) Qty: 180 3RF (DME) oxygen, mask, supplies See Rx Instructions .Route .MEDSUPPLY Qty: 1 0RF Rx Instructions: 2L NC supplemental oxygen overnight use per 07/2022 sleep study recommendations montelukast 10 mg tablet 10 mg PO BEDTIME Qty: 30 2RF epinephrine 0.3 mg/0.3 mL auto-injector 0.3 mg IM ONCE PRN (Reason: allergic reaction) Qty: 2 1RF medroxyprogesterone 150 mg/mL suspension See Rx Instructions .ROUTE .COMPLEX Qty: 1 0RF Dose Instruction: ADMINISTER 1 ML IN THE MUSCLE EVERY 90 DAYS Rx Instructions: ADMINISTER 1 ML IN THE MUSCLE EVERY 90 DAYS Tylenol Extra Strength 500 mg Tablet 500 - 1,000 mg PO PRN topiramate 50 mg Tablet 100 mg PO BID Flonase Allergy Relief 50 mcg/actuation spray,suspension 1 spray INTRANASAL DAILY Rx Instructions: administer into each nostril multivitamin Tablet 1 tab PO DAILY cetirizine 10 mg Tablet 20 mg PO QAM hydroxyzine HCl 25 mg Tablet 25 mg PO Q6H PRN (Reason: Itching) levetiracetam [Keppra XR] 500 mg tablet extended release 24 hr 2,500 mg PO BEDTIME Proctosol HC 2.5 % cream with perineal applicator 1 applic NC BID PRN (Reason: hemorrhoids) Qty: 30 0RF Discharge Orders: Discharge ED (Routine); Ordered 09/14/25 Ordered By: Chantell Calles Referrals: Jorge Nicholas MD [Primary Care Provider, [facility]] Patient Instructions: Opioid Safety, Pain Management, Patient Portal & Berry Instructions, Headache - Migraine (Adult) Activity Restrictions/Additional Instructions: Please continue to monitor your condition closely at home. Take Ibuprofen 400mg and Tylenol 500-1000mg every six hours for pain and inflammation. If your condition worsens or additional concerns arise, please return promptly to the emergency department for reassessment. Follow up with your primary care doctor in one week. Print Language: Central African Coding Level of Care Code ED Patcher Wood Welder for Konstantin Pedersen
== END 2025-09-14 03:08 | disposition home or self-care (01) ==
PROVIDERS: Emergency Provider Emergency Medicine; PCP Family Medicine
DX: G43.109 Migraine with aura, not intractable, without status migrainosus (principal)
CPT/HCPCS: 96361; 96374; 96375; 99284; J0780; J1100; J1885; J7030